=== PATIENT | female | born 1945 | race Caucasian/White ===

== ENCOUNTER 2019-07-22 12:34 | Inpatient (IN) | payer OTHER ==
--- NOTE | 2019-07-22 12:44 | PDOC ---
History of Present Illness - General Stated Complaint: Shortness of Breath - History of Present Illness Initial Comments: HPI: 73yo F with PMH of HTN, Alzheimer's dementia, colon CA, COPD coming from [facility] presenting with altered mental status. and health aide are at the bedside providing collateral history. They state that while the patient is nonverbal at baseline and does not follow commands, she has been more somnolent for the past two days. In addition, patient will usually express recognition of her , however she has not done so in the past two days. Upon arrival, patient noted to have significant eye deviation looking toward the left. Her does not know when this started and has never noticed it before. Patient without history of stroke or seizure. Has been eating at baseline. No known cough, diarrhea, or foul-smelling urine. Patient does not ambulate, but she will be placed in a wheelchair. History limited as patient is nonverbal. ROS: unable to complete (patient nonverbal) PE: General: Awake, in no acute distress Head: No signs of trauma Eyes: Significant leftward eye deviation ENT: Dry mucus membranes Neck: Supple Lungs: Lungs clear with upper airway noises Cardio: Regular rhythm, S1 and S2 present Abdomen: Soft, nontender. No grimacing noted upon palpation. Extremities: Distal pulses present SKIN: Warm, Dry, normal turgor Neurologic: Nonverbal. Not following commands. Moves all extremities. ED Course/MDM: DDX including but not limited to CVA/TIA, seizure, metastasis, metabolic derangement, anemia, UTI, PNA Last known normal was two days ago Triage VS noted for hypotension Stroke labs EKG CT Head 07/22/19 12:44 CT Head, as read by radiology: "EXAM#: TYPE/EXAM: RESULT: [id number] CT/HEAD CT WITHOUT CONTRAST Rule out stroke. Right inguinal herniation CT scan of the head without intravenous contrast Compared to prior MRI of the orbits dated 2008 there is generalized volume loss with moderate ventricular dilatation and moderate to marked periventricular chronic microvascular ischemic disease changes. No mass lesion, gross acute infarct or intracranial hemorrhage are identified. There is suggestion of focal encephalomalacia in the right temporal lobe, anteriorly. Both orbits appear grossly unremarkable. Visualized paranasal sinuses and mastoid air cells are well aerated except for mild mucosal thickening in the right posterior aspect of the sphenoid sinus. Mild deviation of the nasal septum to the right. The mastoid air cells are well aerated and the calvarium is intact IMPRESSION: Generalized volume loss with moderate to marked chronic microvascular ischemic disease changes. There is suggestion of focal encephalomalacia in the right temporal lobe, anteriorly. Otherwise, no gross CT evidence of acute intracranial pathology is identified. Correlate in 2 to determine further evaluation and follow-up. " EKG, rate 81, QTc 420, NSR, mild ST depressions seen in inferior distribution, flattened t waves in anterior distribution (no previous EKGs available) Discussed case with Dr. Ortiz, neurologist, who recommends admission. Recommends asa. Rectal ASA ordered. 07/22/19 13:52 CBC WBC 8.0 K/mm3 (4.0-10.0) 07/22/19 12:45 RBC 4.59 M/mm3 (3.60-5.2) 07/22/19 12:45 Hgb 14.5 GM/dL (10.7-15.3) 07/22/19 12:45 Hct 43.8 % (32.4-45.2) 07/22/19 12:45 MCV 95.6 fl (80-96) 07/22/19 12:45 MCH 31.6 pg (25.7-33.7) 07/22/19 12:45 MCHC 33.1 g/dl (32.0-36.0) 07/22/19 12:45 RDW 15.0 % (11.6-15.6) 07/22/19 12:45 Plt Count 213 K/MM3 (134-434) 07/22/19 12:45 MPV 10.4 fl (7.5-11.1) 07/22/19 12:45 Absolute Neuts (auto) 5.1 K/mm3 (1.5-8.0) 07/22/19 12:45 Neutrophils % 63.7 % (42.8-82.8) 07/22/19 12:45 Lymphocytes % 22.4 % (8-40) 07/22/19 12:45 Monocytes % 11.4 % (3.8-10.2) H 07/22/19 12:45 Eosinophils % 1.9 % (0-4.5) 07/22/19 12:45 Basophils % 0.6 % (0-2.0) 07/22/19 12:45 Nucleated RBC % 0 % (0-0) 07/22/19 12:45 No leukocytosis or anemia CMP Sodium 139 mmol/L (136-145) 07/22/19 12:45 Potassium 4.8 mmol/L (3.5-5.1) 07/22/19 12:45 Chloride 105 mmol/L (98-107) 07/22/19 12:45 Carbon Dioxide 30 mmol/L (21-32) 07/22/19 12:45 Anion Gap 4 MMOL/L (8-16) L 07/22/19 12:45 BUN 14.6 mg/dL (7-18) 07/22/19 12:45 Creatinine 0.5 mg/dL (0.55-1.3) L 07/22/19 12:45 Est GFR (CKD-EPI)AfAm 111.28 07/22/19 12:45 Est GFR (CKD-EPI)NonAf 96.02 07/22/19 12:45 Random Glucose 117 mg/dL (74-106) H 07/22/19 12:45 Calcium 9.2 mg/dL (8.5-10.1) 07/22/19 12:45 Total Bilirubin 0.4 mg/dL (0.2-1) 07/22/19 12:45 AST 40 U/L (15-37) H 07/22/19 12:45 ALT 32 U/L (13-61) 07/22/19 12:45 Alkaline Phosphatase 122 U/L (45-117) H 07/22/19 12:45 Creatine Kinase 127 U/L (26-192) 07/22/19 12:45 Troponin I < 0.02 ng/ml (0.00-0.05) 07/22/19 12:45 Total Protein 7.0 g/dl (6.4-8.2) 07/22/19 12:45 Albumin 2.9 g/dl (3.4-5.0) L 07/22/19 12:45 Triglycerides 201 mg/dL (0-150) H 07/22/19 12:45 Cholesterol 187 mg/dL (50-200) 07/22/19 12:45 Total LDL Cholesterol 107 mg/dL (5-100) H 07/22/19 12:45 HDL Cholesterol 55 mg/dL (40-60) 07/22/19 12:45 Electrolytes unremarkable Tpn undetectable Elevted TG and LDL UA negative for infection CXR as read by radiology: "EXAM#: TYPE/EXAM: RESULT: [id number] RAD/CHEST X-RAY PORTABLE* Chest: Altered mental status. Cough. A single AP view of the chest has been submitted. There is an elevated right hemidiaphragm, prominent mediastinum with large heart, prominent hilar markings with questionable left hilar calcifications and no sign of infiltrate or failure. The bones and soft tissues are intact. Correlation recommended. Reported By: Medardo Henderson MD [id number] " Page sent to Dr. Jack/Raul, , awaiting callback 07/22/19 15:[address] Carter who accepted patient for admission tPA Exclusion checklist 3-4.5h - Time Elapsed Date last known well: 07/20/19 Time last known well: 12:00 Elaspsed time: 2 Day(s) and 6 Hour(s) and 46 Minutes - Thrombolytic Therapy Candidate Is patient eligible for thrombolytic therapy: No - Ineligibility reason(s) Reasons No tPA given: Outside of window - delayed arrival NIH Stroke Scale - Last Known Well Date/Time & Onset Date Last Known Well: 07/20/19 (Difficult exam: at baseline, patient nonverbal/ does not follow commands) Time Last Known Well: 12:00 - Initial Evaluation Level of consciousness: Alert Ask patient the month and their age: Both incorrect Ask patient to open & close eyes; make fist and let go: Both incorrect Best gaze (horizontal eye movement): Forced deviation Visual field testing: No visual field loss Facial paresis (Show teeth/raise eyebrows/close eyes tight): Normal symmetrical movement Motor Function: Left Arm: Untestable (Joint fused orlimb amputated), explain: Motor Function: Right Arm: Untestable (Joint fused or limb amputated), explain: Motor Function: Left Leg: Untestable (Joint fused or limb amputated), explain: Motor Function: Right Leg: Untestable )Joint fused orlimb amputated), explain: Limb Ataxia: Untestable (Joint fused or limb amputated), explain: Sensory(Use pinprick test arms,legs,trunk,face/side to side): Normal Best language (Describe picture, name items, read sentences): Mute Dysarthria (read several words): Near unintelligible or unable to speak Extinction and Inattention: No abnormality - Total Score NIH Stroke Scale Score: 11 Past History - Past Medical History Allergies/Adverse Reactions: Allergies Allergy/AdvReac Type Severity Reaction Status Date / Time No Known Allergies Allergy Unverified 07/22/19 13:10 Home Medications: Ambulatory Orders Aspirin 81 mg PO BID 07/22/19 Atorvastatin Ca [Lipitor] 80 mg PO HS 07/22/19 Budesonide/Formeterol Fumarate [SYMBICORT 160/4.5mcg -] 2 inh PO BID 07/22/19 Donepezil HCl 10 mg PO HS 07/22/19 Furosemide 40 mg PO DAILY 07/22/19 Gemfibrozil [Lopid] 600 mg PO BID 07/22/19 Guaifenesin/Dextromethorphan [Robitussin Cough-Chest Dm Liq] 10 ml PO QID PRN Ipratropium/Albuterol Sulfate [Iprat-Albut 0.5-3(2.5) mg/3 ml] 3 ml IH QID 07/22 Memantine HCl [Namenda -] 5 mg PO BID 07/22/19 Metoprolol Tartrate 25 mg PO BID 07/22/19 Nystatin Cream [Mycostatin] 1 applic TP BID 07/22/19 Pantoprazole Sodium [Protonix -] 20 mg PO DAILY 07/22/19 ED Treatment Course - LABORATORY CBC & Chemistry Diagram: 07/22/19 12:45 07/22/19 12:45 Discharge - Discharge Information Problems reviewed: Yes Clinical Impression/Diagnosis: Altered mental status Qualifiers: Altered mental status type: unspecified Qualified Code(s): R41.82 - Altered mental status, unspecified Condition: Guarded - Admission Yes - Follow up/Referral - Patient Discharge Instructions - Post Discharge Activity
[2019-07-22] MEDS ORDERED: SODIUM CHLORIDE 1,000 ML IV SCH (13:00)
[2019-07-22 13:19] LABS: BASO % 0.6 % (0-2.0); EOS % 1.9 % (0-4.5); HEMATOCRIT 43.8 % (32.4-45.2); HEMOGLOBIN 14.5 GM/dL (10.7-15.3); LYMPH % 22.4 % (8-40); MCH 31.6 pg (25.7-33.7); MCHC 33.1 g/dl (32.0-36.0); MEAN CELL VOLUME 95.6 fl (80-96); MEAN PLT VOLUME 10.4 fl (7.5-11.1); MONO % 11.4 % (3.8-10.2); NEUT % 63.7 % (42.8-82.8); PLATELET COUNT 213 K/MM3 (134-434); RBC 4.59 M/mm3 (3.60-5.2)
[2019-07-22 13:41] LABS: INR 0.97 (0.83-1.09); PROTHROMBIN TIME (PATIENT) 11.4 SEC (9.7-13.0)
[2019-07-22 13:43] LABS: ACTIVATED PTT 31.7 SECONDS (25.2-36.5)
[2019-07-22] MEDS ORDERED: ASPIRIN 81 MG CHEWABLE TABLETS PO ONE (13:54)
[2019-07-22 13:56] LABS: ALBUMIN 2.9 g/dl (3.4-5.0); ALK PHOS 122 U/L (45-117); ANION GAP 4 MMOL/L (8-16); BILIRUBIN,TOTAL 0.4 mg/dL (0.2-1); BLOOD UREA NITROGEN 14.6 mg/dL (7-18); CALCIUM 9.2 mg/dL (8.5-10.1); CHLORIDE 105 mmol/L (98-107); CHOLESTEROL 187 mg/dL (50-200); CO2 30 mmol/L (21-32); CREATININE 0.5 mg/dL (0.55-1.3); GLUCOSE,RANDOM 117 mg/dL (74-106); HDL CHOLESTEROL 55 mg/dL (40-60); LDL CHOLESTEROL (ONLY SJRH) 107 mg/dL (5-100); POTASSIUM 4.8 mmol/L (3.5-5.1); SGOT/AST 40 U/L (15-37); SGPT/ALT 32 U/L (13-61); SODIUM 139 mmol/L (136-145); TRIGLYCERIDES 201 mg/dL (0-150)
[2019-07-22] MEDS ORDERED: ASPIRIN 300 MG SUPP.RECT PR ONE (14:00)
[2019-07-22 14:06] LABS: URINE APPEARANCE CLEAR; URINE BILIRUBIN NEGATIVE (NEGATIVE); URINE COLOR YELLOW; URINE GLUCOSE (UA) NEGATIVE (NEGATIVE); URINE KETONE NEGATIVE (NEGATIVE); URINE LEUK ESTERASE NEGATIVE (NEGATIVE); URINE NITRITE NEGATIVE (NEGATIVE); URINE PROTEIN NEGATIVE (NEGATIVE); URINE UROBILINOGEN 0.2 mg/dL (0.2-1.0)
[2019-07-22] MEDS ORDERED: ASPIRIN 300 MG SUPP.RECT RC ONE (14:22)
[2019-07-22 14:56] LABS: VENOUS PC02 52.4 mmHg (38-52); VENOUS PH 7.38 (7.31-7.41)
[2019-07-22 14:59] LABS: VENOUS PO2 < 49 mmHg (28-48)
--- NOTE | 2019-07-22 15:07 | PDOC ---
Documentation entered by Epi Morris SCRIBE, acting as scribe for Yanna Rushing MD. Yanna Rushing MD: This documentation has been prepared by the Arturo goins Nirvannie, SCRIBE, under my direction and personally reviewed by me in its entirety. I confirm that the documentation accurately reflects all work, treatment, procedures, and medical decision making performed by me. Attending Attestation - Resident Resident Name: Mica Slade - ED Attending Attestation I have performed the following: I have examined & evaluated the patient, The case was reviewed & discussed with the resident, I agree w/resident's findings & plan, Exceptions are as noted - HPI HPI: 07/22/19 14:06 The patient is a 73 year old female, with a significant past medical history of HTN, Alzheimer's dementia, COPD, who presents to the emergency department with AMS. Patient is nonverbal at baseline and can not contribute to history. Per NH , pt typically able to recognize her but has not done so for 2 days. Patient has a gaze to the left side which states is new since yesterday morning. Allergies: NKDA Primary Care Physician: Dr. Drew Jakc - Physicial Exam PE: 07/22/19 15:02 Agree with resident exam - Medical Decision Making 07/22/19 15:02 73-year-old female presents the emergency department with new onset left gaze deviation as well as altered mental status. Concern for CVA. Patient is out of the TPA window. Stroke work-up has been initiated. Vitals remarkable for blood pressure on presentation in the 80s systolic, however on repeat without intervention blood pressure is 154/90. Rectally, her temperature is 99.7. Will obtain infectious w/u as well. In light of stable vitals, no fever, no clear source at this time, will not cover empirically at this time. Case has been discussed with neurology who will evaluate patient. Anticipate admission. Heart Score/ECG Review #1 07/22/19 15:08 Twelve-lead EKG was performed and reviewed by me. Normal sinus rhythm, rate 81. Normal axis. No ST elevations but sub-[address] depressions in 1, 2, aVF, V5 and V6. No ST elevations. No previous EKG to compare.
--- NOTE | 2019-07-22 21:01 | CON.NEURO ---
Consult Consult Specialty:: NEUROLOGY-RAUL SOLORZANO - History of Present Illness History of Present Illness: 73yo F with PMH of HTN, Alzheimer's dementia, colon CA, COPD coming from [facility] presenting with altered mental status. and health aide are at the bedside providing collateral history. They state that while the patient is nonverbal at baseline and does not follow commands, she has been more somnolent for the past two days. In addition, patient will usually express recognition of her , however she has not done so in the past two days. Upon arrival, patient noted to have significant eye deviation looking toward the left. Her does not know when this started and has never noticed it before. Patient without history of stroke or seizure. Has been eating at baseline. No known cough, diarrhea, or foul-smelling urine. Patient does not ambulate, but she will be placed in a wheelchair. History limited as patient is nonverbal. - Alcohol/Substance Use Hx Alcohol Use: No - Smoking History Smoking history: Unknown if ever smoked Home Medications - Allergies Allergies/Adverse Reactions: Allergies Allergy/AdvReac Type Severity Reaction Status Date / Time No Known Allergies Allergy Unverified 07/22/19 13:10 - Home Medications Home Medications: Ambulatory Orders Aspirin 81 mg PO BID 07/22/19 Atorvastatin Ca [Lipitor] 80 mg PO HS 07/22/19 Budesonide/Formeterol Fumarate [SYMBICORT 160/4.5mcg -] 2 inh PO BID 07/22/19 Donepezil HCl 10 mg PO HS 07/22/19 Furosemide 40 mg PO DAILY 07/22/19 Gemfibrozil [Lopid] 600 mg PO BID 07/22/19 Guaifenesin/Dextromethorphan [Robitussin Cough-Chest Dm Liq] 10 ml PO QID PRN Ipratropium/Albuterol Sulfate [Iprat-Albut 0.5-3(2.5) mg/3 ml] 3 ml IH QID 07/22 Memantine HCl [Namenda -] 5 mg PO BID 07/22/19 Metoprolol Tartrate 25 mg PO BID 07/22/19 Nystatin Cream [Mycostatin] 1 applic TP BID 07/22/19 Pantoprazole Sodium [Protonix -] 20 mg PO DAILY 11/21/19 Physical Exam-Neuro Vital Signs: Vital Signs Temperature 99.1 F 07/22/19 18:21 Pulse Rate 80 07/22/19 18:21 Respiratory Rate 18 07/22/19 18:21 Blood Pressure 148/93 07/22/19 18:21 O2 Sat by Pulse Oximetry (%) 96 07/22/19 18:21 Labs: CBC, BMP 07/22/19 12:45 07/22/19 12:45 INR, PTT INR 0.97 (0.83-1.09) 07/22/19 13:21 - Neuro Exam Level Of Consciousness: Yes: Stuporous (Lying with eyes closed, non-verbal, to pain opens eyes but does not allow eye exam , only verbalization to pain is"no": .) Eyes: Yes: Other (Now able to move gaze in both directions) Mini Mental Exam: As above Cranial Nerves II-XII Intact: No (slight diminished right nlf) Gag: Present DTR's: 1+ Right Tricep, 1+ Left Brachioradialis, 2+ Left Bicep, 2+ Right Bicep, 2+ Left Tricep, 2+ Right Brachioradialis, 2+ Left Achilles, 2+ Right Achilles ( bilat knees-2+) Babinski: Present (right) Motor Strength: 3/5: Left Arm, Right Arm, Left Leg, Right Leg (Has increased tone in all 4 ext-difficult to test) Gait: Deferred Imaging - Results Cat Scan: Report Reviewed (Right temporal encephalomalacia) Assessment/Plan 73yo F with PMH of HTN, Alzheimer's dementia, colon CA, COPD coming from [facility] presenting with altered mental status, noted to have left gaze deviation upoon arrival in ED, has right temp. encephalomalacia. DDX. includes left frontal infarct, seizures causing left gaze devition and mental status change. Suggest: MRI brain, EEG, Keppra 750mg bid(can load with 1000mg now).EEG. Thank you, Demetri Ortiz MD
[2019-07-22] MEDS: METOPROLOL TARTRATE 25 MG TABLET (FP) PO SCH (21:59)
[2019-07-22] MEDS: DONEPEZIL HCL 10 MG TABLET (FP) PO SCH (21:59)
[2019-07-22] MEDS: ATORVASTATIN CA 80 MG TABLET (FP) PO SCH (21:59)
[2019-07-22] MEDS: MEMANTINE HCL 5 MG TABLET (UD) PO SCH (21:59)
[2019-07-22] MEDS: BUDESONIDE/FORMETEROL FUMARATE 160/4.5 mcg INHALER IH SCH (22:00)
[2019-07-23] MEDS: GEMFIBROZIL 600 MG TABLET (FP) PO SCH ×2 (07:12→16:46)
[2019-07-23 07:45] LABS: BASO % 0.6 % (0-2.0); EOS % 1.5 % (0-4.5); HEMATOCRIT 40.9 % (32.4-45.2); HEMOGLOBIN 13.7 GM/dL (10.7-15.3); LYMPH % 23.6 % (8-40); MCH 31.7 pg (25.7-33.7); MCHC 33.4 g/dl (32.0-36.0); MEAN CELL VOLUME 94.8 fl (80-96); MEAN PLT VOLUME 9.7 fl (7.5-11.1); MONO % 13.4 % (3.8-10.2); NEUT % 60.9 % (42.8-82.8); PLATELET COUNT 186 K/MM3 (134-434); RBC 4.31 M/mm3 (3.60-5.2); RDW 15.1 % (11.6-15.6)
[2019-07-23 08:11] LABS: ALBUMIN 2.9 g/dl (3.4-5.0); BILIRUBIN,TOTAL 0.3 mg/dL (0.2-1); BLOOD UREA NITROGEN 14.3 mg/dL (7-18); CALCIUM 9.3 mg/dL (8.5-10.1); CREATININE 0.4 mg/dL (0.55-1.3); POTASSIUM 3.8 mmol/L (3.5-5.1); TOT PROT 6.5 g/dl (6.4-8.2)
[2019-07-23] MEDS ORDERED: FUROSEMIDE 40 MG TABLET (FP) PO SCH (10:00)
[2019-07-23] MEDS: BUDESONIDE/FORMETEROL FUMARATE 160/4.5 mcg INHALER IH SCH ×2 (10:04→22:47)
[2019-07-23] MEDS: ASPIRIN 81 MG CHEWABLE TABLETS PO SCH (10:04)
[2019-07-23] MEDS: MEMANTINE HCL 5 MG TABLET (UD) PO SCH ×2 (10:04→22:38)
[2019-07-23] MEDS: METOPROLOL TARTRATE 25 MG TABLET (FP) PO SCH (10:04)
--- NOTE | 2019-07-23 12:08 | HP ---
Admitting History and Physical - Primary Care Physician PCP: Louise Jack - Admission History of Present Illness: Pt seen/ examined chart reviewed Er records reviewed and as per Er records The patient is a 73 year old female, with a significant past medical history of HTN, Alzheimer's dementia, COPD,Colon Ca who presents to the emergency department with AMS. Patient is nonverbal at baseline and can not contribute to history. Per NH, pt typically able to recognize her but has not done so for 2 days. Patient has a gaze to the left side which states is new since yesterday morning. I also spoke to / Aid today Pt awake. Poor historian advance dementia Known to me from snf 'NO gaze now CT head -ve pt also has cough / expectorant per ct chest- Infiltrate ? History Source: Family Member, Medical Record Limitations to Obtaining History: Clinical Condition, Dementia - Smoking History Smoking history: Unknown if ever smoked - Alcohol/Substance Use Hx Alcohol Use: No Home Medications - Allergies Allergies/Adverse Reactions: Allergies Allergy/AdvReac Type Severity Reaction Status Date / Time No Known Allergies Allergy Unverified 07/22/19 13:10 - Home Medications Home Medications: Ambulatory Orders Aspirin 81 mg PO BID 07/22/19 Atorvastatin Ca [Lipitor] 80 mg PO HS 07/22/19 Budesonide/Formeterol Fumarate [SYMBICORT 160/4.5mcg -] 2 inh PO BID 07/22/19 Donepezil HCl 10 mg PO HS 07/22/19 Furosemide 40 mg PO DAILY 07/22/19 Gemfibrozil [Lopid] 600 mg PO BID 07/22/19 Guaifenesin/Dextromethorphan [Robitussin Cough-Chest Dm Liq] 10 ml PO QID PRN Ipratropium/Albuterol Sulfate [Iprat-Albut 0.5-3(2.5) mg/3 ml] 3 ml IH QID 07/22 Memantine HCl [Namenda -] 5 mg PO BID 07/22/19 Metoprolol Tartrate 25 mg PO BID 07/22/19 Nystatin Cream [Mycostatin] 1 applic TP BID 07/22/19 Pantoprazole Sodium [Protonix -] 20 mg PO DAILY 07/22/19 Review of Systems Unable to obtain ROS, reason: clinical condition Physical Examination Vital Signs: Vital Signs Temperature 98.0 F 07/23/19 10:25 Pulse Rate 89 07/23/19 10:25 Respiratory Rate 19 07/23/19 10:25 Blood Pressure 143/74 07/23/19 10:25 O2 Sat by Pulse Oximetry (%) 99 07/23/19 10:25 Constitutional: Yes: No Distress Eyes: Yes: Conjunctiva Clear, PERRL Neck: Yes: Supple Cardiovascular: Yes: Regular Rate and Rhythm Respiratory: Yes: Diminished Gastrointestinal: Yes: Soft Edema: No Neurological: Yes: Lethargy Labs: CBC, BMP 07/23/19 05:30 07/23/19 05:30 Imaging - Results Chest X-ray: Report Reviewed Cat Scan: Report Reviewed EKG: Report Reviewed Problem List - Problems (1) Altered mental status Code(s): R41.82 - ALTERED MENTAL STATUS, UNSPECIFIED Qualifiers: Altered mental status type: unspecified Qualified Code(s): R41.82 - Altered mental status, unspecified (2) Aspiration pneumonia Code(s): J69.0 - PNEUMONITIS DUE TO INHALATION OF FOOD AND VOMIT Assessment/Plan cva ? Seizure? Advance dementia Aspiration Pneumonia ? Fluids Hold po HTN meds NPO except meds MRI Brain [facility] [place] d/c Dr. Duenas also- will see pt EEG Swallow Eval- Spoke with Nelly Perez will follow d/w pts as well as nursing staff also
[2019-07-23] MEDS ORDERED: PIPERACILLIN/TAZOB 3.375 GM 3.375 GM in DEXTROSE 5%-WATER - 50 ML IVPB ONE (12:19)
--- NOTE | 2019-07-23 12:30 | CONSULT ---
Admitting History and Physical - Primary Care Physician PCP: Louise Jack - Admission History of Present Illness: Per EMR- 73yo F with PMH of HTN, Alzheimer's dementia, colon CA, COPD coming from [facility] presenting with altered mental status. and health aide are at the bedside providing collateral history. They state that while the patient is nonverbal at baseline and does not follow commands, she has been more somnolent for the past two days. In addition, patient will usually express recognition of her , however she has not done so in the past two days. Upon arrival, patient noted to have significant eye deviation looking toward the left. Her does not know when this started and has never noticed it before. Patient without history of stroke or seizure. Has been eating at baseline. No known cough, diarrhea, or foul-smelling urine. Patient does not ambulate, but she will be placed in a wheelchair. History limited as patient is nonverbal. Selected Entries 07/22/19 07/22/19 07/22/19 12:34 13:30 18:21 Temperature 99.7 F H 99.1 F Blood Pressure 88/71 L Blood Pressure 154/90 148/93 [Right Arm] 07/23/19 07/23/19 07/23/19 05:44 07:30 08:58 Temperature Blood Pressure Blood Pressure 141/88 140/73 146/71 [Right Arm] 07/23/19 10:25 Temperature Blood Pressure Blood Pressure 143/74 [Right Arm] Laboratory Tests 07/22/19 07/23/19 12:45 05:30 WBC 8.0 6.0 Pt with cough x 3 days. Normally speaks occasionally, tangential, impaired functional communication. She eats reg food/thin liquid with good appetite per private REPORTER ANCHOR from [facility]. REPORTER ANCHOR reported increased lethargy, eyes deviated to left , was now non verbal. History Source: Medical Record, Caregiver Limitations to Obtaining History: Clinical Condition, Dementia - Smoking History Smoking history: Unknown if ever smoked - Alcohol/Substance Use Hx Alcohol Use: No History - Admission Reason For Visit: CVA - Diagnostics X-ray: Report Reviewed CT Scan: Report Reviewed - General Mental Status: Lethargic (responsive intermittently to spoken word and tactile stimulation.Eyes remained closed. Mumbled something to me that was first time since onset, per REPORTER ANCHOR.) Ability to Follow Directions: Poor Head/Neck Control: Needs Assist - Hearing Hearing: Functional Speech Evaluation - Communication Primary Language: NEPALI Communication: Yes: Non-Communicable (baseline tangential words,phrases.Mumble something to me that was first time since onset, per REPORTER ANCHOR.) - Speech Production Able to Make Needs Known: Yes: Severely Impaired Intelligibility: Yes: Severely Impaired - Speech Characteristics Voice Loudness: Moderately Soft/Quiet Voice Pitch: Yes: Normal Voice Phonatory-based Quality: Yes: Normal Speech Pattern: Impaired Speech Clarity: < 25% Nasal Resonance: Normal - Language/Auditory Comprehension Observation: Able to respond to yes/no queries: No, Comprehends Conversational Speech: No - Language/Verbal Expression Functional Communication Status: Yes: Severely Impaired - Memory/Perception [facility]PC Memory: Yes: Severely Impaired Short Term Memory: Yes: Severely Impaired - Swallow Evaluation/Bedside Assessment Current Nutritional Intake: NPO Oral Secretions: Yes: WFL Facial Symmetry at Rest: Symmetrical Laryngeal Movement: Able to Palpate Rate of Intake: WFL Labial Seal: WFL Oral Prep Time: Increased Timing of Swallow: WFL Coughing/Throat Clear: No (thin liquid. harsh cough) Recommendations - Speech Evaluation, Impression/Plan Impression: responsive intermittently to spoken word and tactile stimulation.Eyes remained closed. Mumble something to me that was first time since onset, per REPORTER ANCHOR. Brisk swallow. Harsh delayed but responsive cough with thin liquid via straw. - Disposition Discharge to: [facility] Facility - Dysphagia Impressions/Plan Swallowing Skills: Impaired Dysphagia Impressions: Mild Impairment, Suspect Aspiration *Silent aspiration: cannot be R/O at bedside Dysphagia Treatment Plan: Small Bites, Chin Tuck/Down, Clear Pocket Food, Trial Feedings, Facilitative Feeding, Safe Rate, 1/2 tsp. at a time, Elevate HOB during feed Recommendations: Modified Barium Swallow (if cough,congestion,fever persists) - Recommendations Diet Consistency: Dysphagia Pureed Medication Administration: Crushed with applesauce Liquids: [place] Thick (single sips. no straws) Supplement: Magic Cup, Ensure Pudding
--- NOTE | 2019-07-23 12:31 | PN ---
Progress Note (short form) - Note Progress Note: ID consult dictated imp/reccd lethargy dementia Aide and hospital report that she has had a bad cough for last 2 days reports hypoxia to Dr Jack currently NPO altared mental status r/o CVA r/o stroke ?aspiration no fevers chest ct with ?small infiltrate right base rocephin/flagyl d/w dr jack Problem List - Problems (1) Altered mental status Code(s): R41.82 - ALTERED MENTAL STATUS, UNSPECIFIED Qualifiers: Altered mental status type: unspecified Qualified Code(s): R41.82 - Altered mental status, unspecified (2) Aspiration pneumonia Code(s): J69.0 - PNEUMONITIS DUE TO INHALATION OF FOOD AND VOMIT
--- NOTE | 2019-07-23 13:21 | EKG ---
Test Reason : Blood Pressure : / mmHG Vent. Rate : 081 BPM Atrial Rate : 081 BPM P-R Int : 124 ms QRS Dur : 072 ms QT Int : 362 ms P-R-T Axes : 055 046 092 degrees QTc Int : 420 ms NORMAL SINUS RHYTHM NONSPECIFIC ST AND T WAVE ABNORMALITY ABNORMAL ECG Confirmed by ANGELICA ALVES MD ([id number]) on 07/23/2019 1:21:22 PM Referred By: Confirmed By:ANGELICA ALVES MD
[2019-07-23] MEDS: SODIUM CHLORIDE 1,000 ML IV SCH (13:34)
[2019-07-23] MEDS: levETIRAcetam 500 MG/5 ML INJECTION VIAL IVPB SCH ×2 (13:35→22:45)
--- NOTE | 2019-07-23 16:54 | CONS ---
DATE OF CONSULTATION: INFECTIOUS DISEASE CONSULTATION DATE OF DICTATION: 07/23/2019 HISTORY OF PRESENT ILLNESS: This is a 73-year-old female who was admitted from the jail. She has a history of dementia, and she has been residing at the jail for at least a year. Her aid is present, who is also her aid there. She reports that over the last 2-3 days, she has developed a moist cough that has worsened. She really has not been eating anything at the jail, and she has become more lethargic. At her baseline, spontaneously she sometimes will babble but otherwise will not speak, and she can apparently typically recognize her , which she cannot do. She has had no fevers. She presented to the ER. She was thought to possibly have the CVA or seizures. She was seen by neurology and admitted. I am asked to see her for possible pneumonia. As well I spoke with Dr. Jack who reports that she had periods of hypoxia as well as the jail along with cough. PAST MEDICAL HISTORY: Hypertension, Alzheimer dementia, colon cancer, and COPD. SURGICAL HISTORY: Unknown. She resides at the [facility]. ALLERGIES: She has no known drug allergies. MEDICATION: Her medications at the jail include aspirin, atorvastatin, Symbicort, donepezil, furosemide, Lopid, nebulizer treatment, albuterol, ipratropium, Namenda, metoprolol, and Protonix. SOCIAL HISTORY: She has been residing at the jail and has an aid there. REVIEW OF SYSTEMS: Noted for lethargy for the last 2 days and moist cough. PHYSICAL EXAMINATION: Vital Signs: Temperature 98, pulse 84, blood pressure 158/79, respiratory rate 20, stated weight is 69 kg. HEENT: Normocephalic. Eyes are anicteric. Neck: Supple. General: She is lethargic and not following any commands. Abdomen: Soft, nontender. Heart: Regular rate and rhythm. Lungs: Clear. Extremities: Without edema. Skin: She has no rash. LABORATORY: White count is 6000, hemoglobin 13.7, INR 0.9, BUN and creatinine are 14 and 0.4 with normal LFTs. Albumin is 2.9. Urinalysis is negative. Her urine culture is negative. She had a chest CT that shows a possible slight increased opacity in the right base consistent with either atelectasis or infiltrate. Head CT noted IMPRESSION: In summary, this is an elderly woman admitted with altered mental status, possible stroke, possible seizure, CAT scan and clinical history of cough and lethargy, concerning for aspiration pneumonia. Chest CT with a small right infiltrate at the right base versus atelectasis. Would treat with ceftriaxone and Flagyl, neurological followup is ongoing. Case was discussed with Dr. Jack. TAYLOR DUNCAN M.D. SIMI/[id number] MTDD
[2019-07-23] MEDS ORDERED: cefTRIAXone SODIUM 1 GM VIAL ONE (17:07)
[2019-07-23] MEDS ORDERED: DEXTROSE 5%-WATER - 50 ML IVPB ONE (17:07)
[2019-07-23] MEDS: CEFTRIAXONE 1 GM in DEXTROSE 5%-WATER - 50 ML IVPB SCH (17:27)
[2019-07-23] MEDS: ATORVASTATIN CA 80 MG TABLET (FP) PO SCH (22:37)
[2019-07-23] MEDS: DONEPEZIL HCL 10 MG TABLET (FP) PO SCH (22:38)
[2019-07-23] MEDS: HEPARIN NA (PORCINE) 5,000 UNITS/ML 1ML VIAL SQ SCH (22:43)
[2019-07-24] MEDS ORDERED: ACETAMINOPHEN 650 MG SUPP.RECT PR ONE (01:46)
[2019-07-24] MEDS: GEMFIBROZIL 600 MG TABLET (FP) PO SCH ×2 (06:53→16:37)
[2019-07-24 07:23] LABS: BASO % 0.5 % (0-2.0); EOS % 1.8 % (0-4.5); HEMATOCRIT 36.3 % (32.4-45.2); HEMOGLOBIN 12.3 GM/dL (10.7-15.3); LYMPH % 29.9 % (8-40); MCHC 33.9 g/dl (32.0-36.0); MEAN CELL VOLUME 94.4 fl (80-96); MEAN PLT VOLUME 9.6 fl (7.5-11.1); MONO % 14.6 % (3.8-10.2); NEUT % 53.2 % (42.8-82.8); PLATELET COUNT 176 K/MM3 (134-434); RBC 3.84 M/mm3 (3.60-5.2); RDW 14.2 % (11.6-15.6); WHITE BLOOD COUNT 5.4 K/mm3 (4.0-10.0)
[2019-07-24 08:01] LABS: ALBUMIN 2.7 g/dl (3.4-5.0); BILIRUBIN,TOTAL 0.3 mg/dL (0.2-1); BLOOD UREA NITROGEN 10.9 mg/dL (7-18); CALCIUM 8.9 mg/dL (8.5-10.1); CREATININE 0.4 mg/dL (0.55-1.3); POTASSIUM 3.4 mmol/L (3.5-5.1); TOT PROT 5.8 g/dl (6.4-8.2)
[2019-07-24] MEDS ORDERED: DEXTROSE 5%-WATER - 50 ML IVPB ONE (08:10)
[2019-07-24] MEDS ORDERED: cefTRIAXone SODIUM 1 GM VIAL ONE (08:10)
[2019-07-24] MEDS: levETIRAcetam 500 MG/5 ML INJECTION VIAL IVPB SCH ×2 (09:21→22:06)
[2019-07-24] MEDS: CEFTRIAXONE 1 GM in DEXTROSE 5%-WATER - 50 ML IVPB SCH (09:21)
[2019-07-24] MEDS: MEMANTINE HCL 5 MG TABLET (UD) PO SCH ×2 (10:08→22:06)
[2019-07-24] MEDS: ASPIRIN 81 MG CHEWABLE TABLETS PO SCH (10:08)
[2019-07-24] MEDS: HEPARIN NA (PORCINE) 5,000 UNITS/ML 1ML VIAL SQ SCH ×2 (10:09→22:07)
[2019-07-24] MEDS: BUDESONIDE/FORMETEROL FUMARATE 160/4.5 mcg INHALER IH SCH (12:52)
[2019-07-24] MEDS: SODIUM CHLORIDE 1,000 ML IV SCH (12:53)
[2019-07-24] MEDS ORDERED: POTASSIUM CHLORIDE ORAL LIQUID 20 MEQ/15 ML PO ONE (16:12)
--- NOTE | 2019-07-24 16:17 | PN ---
Progress Note (short form) - Note Progress Note: nonverbal had desaturated and is on NRB Vital Signs - 24 hr 07/23/19 07/23/19 07/23/19 18:00 20:00 21:00 Temperature 97.7 F 98.8 F Pulse Rate 86 89 Respiratory 20 20 20 Rate Blood Pressure 137/76 132/66 O2 Sat by Pulse 96 Oximetry (%) 07/24/19 07/24/19 07/24/19 02:00 06:00 08:27 Temperature 100 F H 99.1 F 98.9 F Pulse Rate 106 H 75 82 Respiratory 20 20 20 Rate Blood Pressure 147/91 125/64 134/78 O2 Sat by Pulse Oximetry (%) 07/24/19 07/24/19 07/24/19 08:33 08:46 08:48 Temperature Pulse Rate 82 83 Respiratory 20 Rate Blood Pressure O2 Sat by Pulse 96 95 88 L Oximetry (%) Current Medications Generic Name Dose Route Start Last Admin Trade Name Freq PRN Reason Stop Dose Admin Aspirin 81 mg 07/23/19 10:00 07/24/19 10:08 Asa - PO 81 mg DAILY WILFRED Administration Atorvastatin Calcium 80 mg 07/22/19 22:00 07/23/19 22:37 Lipitor - PO 80 mg HS WILFRED Administration Budesonide/Formoterol Fumarate 2 puff 07/22/19 22:00 07/24/19 12:52 Symbicort 160/4.5mcg - IH Not Given BID WILFRED Donepezil HCl 10 mg 07/22/19 22:00 07/23/19 22:38 Aricept - PO 10 mg HS WILFRED Administration Gemfibrozil 600 mg 07/23/19 07:00 07/24/19 06:53 Lopid - PO 600 mg BIDAC WILFRED Administration Heparin Sodium (Porcine) 5,000 unit 07/23/19 22:00 07/24/19 10:09 Heparin - SQ 5,000 unit BID WILFRED Administration Sodium Chloride 1,000 mls @ 100 mls/hr 07/23/19 12:00 07/24/19 12:53 Normal Saline - IV 100 mls/hr ASDIR WILFRED Administration Ceftriaxone Sodium 1 gm/ 50 mls @ 100 mls/hr 07/23/19 13:15 07/24/19 09:21 Dextrose IVPB 100 mls/hr DAILY WILFRED Administration Protocol Metronidazole 500 mg in 100 mls @ 100 mls/hr 07/23/19 13:15 07/24/19 09:21 Flagyl 500mg Premixed Ivpb - IVPB 100 mls/hr Q8H-IV WILFRED Administration Levetiracetam 750 mg 07/23/19 13:00 07/24/19 09:21 Keppra Injection - IVPB 750 mg BID WILFRED Administration Memantine 5 mg 07/22/19 22:00 07/24/19 10:08 Namenda - PO 5 mg BID WILFRED Administration Laboratory Results - last 24 hr 07/24/19 07/24/19 07/24/19 06:33 06:33 06:33 WBC 5.4 RBC 3.84 Hgb 12.3 Hct 36.3 MCV 94.4 MCH 32.0 MCHC 33.9 RDW 14.2 Plt Count 176 MPV 9.6 Absolute Neuts (auto) 2.9 Neutrophils % 53.2 Lymphocytes % 29.9 D Monocytes % 14.6 H Eosinophils % 1.8 Basophils % 0.5 Nucleated RBC % 0 Sodium 145 Potassium 3.4 L Chloride 112 H Carbon Dioxide 27 Anion Gap 6 L BUN 10.9 Creatinine 0.4 L Est GFR (CKD-EPI)AfAm 119.76 Est GFR (CKD-EPI)NonAf 103.33 Random Glucose 138 H Hemoglobin A1c % 6.8 H Calcium 8.9 Total Bilirubin 0.3 AST 20 ALT 21 Alkaline Phosphatase 84 Total Protein 5.8 L Albumin 2.7 L Triglycerides 202 H Cholesterol 180 Total LDL Cholesterol 99 HDL Cholesterol 45 TSH 3.22 S1 S2 RRR Lungs decreased Abd-soft, NT edema+ PLAN IV antibiotics for aspiration pneumonia ID and Neurology eval noted MRI brain pending EEG replace potassium Problem List - Problems (1) Toxic metabolic encephalopathy Code(s): G92 - TOXIC ENCEPHALOPATHY (2) Altered mental status Code(s): R41.82 - ALTERED MENTAL STATUS, UNSPECIFIED Qualifiers: Altered mental status type: unspecified Qualified Code(s): R41.82 - Altered mental status, unspecified (3) Aspiration pneumonia Code(s): J69.0 - PNEUMONITIS DUE TO INHALATION OF FOOD AND VOMIT
[2019-07-24] MEDS ORDERED: PT OWN MED DRAWER 7, Y5N ONE (16:29)
[2019-07-24] MEDS ORDERED: SODIUM CHLORIDE 1,000 ML IV SCH (20:49)
[2019-07-24] MEDS: DONEPEZIL HCL 10 MG TABLET (FP) PO SCH (22:06)
[2019-07-24] MEDS: ATORVASTATIN CA 80 MG TABLET (FP) PO SCH (22:06)
[2019-07-25] MEDS: BUDESONIDE/FORMETEROL FUMARATE 160/4.5 mcg INHALER IH SCH ×3 (02:22→21:10)
--- NOTE | 2019-07-25 05:24 | HOSP ---
Subjective - Review of Symptoms Events since last encounter: Hospitalist Encounter Notified via microblog from the RN that the patient has desaturated to 82% on NRB. Was asked to assess. Arrived to bedside, patient is unresponsive, obtunded not responding to verbal or tactile stimulus Removed NRB, initiated BVM- spo2 89% ICU resident, Dr. Crocker PGY3 notified for consult. Notified Dr. Diaz for assistance Plan: Stat ABG Stat Chest Xray Stat EKG Labs- CBC, CMP, Mg, Phos, Trop, Lactic Acid Bipap IVF d/cd Pulmonary: Yes: Other (Respiratory Distress) Physical Examination Vital Signs: Vital Signs Temperature 98 F 07/24/19 22:00 Pulse Rate 95 H 07/24/19 22:00 Respiratory Rate 20 07/24/19 22:00 Blood Pressure 141/100 07/24/19 22:00 O2 Sat by Pulse Oximetry (%) 94 L 07/24/19 22:00 Constitutional: Yes: Severe Distress, Obese, Other (Obtunded) Eyes: Yes: PERRL HENT: Yes: Atraumatic, Normocephalic Neck: Yes: Supple, Trachea Midline Respiratory: Yes: Diminished, Poor Air Entry, Rhonchi, Other (NRB) Gastrointestinal: Yes: Normal Bowel Sounds, Soft, Abdomen, Obese Renal/: Yes: Incontinence Edema: Yes Edema: LLE: 1+, RLE: 1+ Peripheral Pulses WNL: Yes Neurological: Yes: Unresponsive Labs: CBC, BMP 07/24/19 06:33 07/24/19 06:33 Laboratory Results - last 24 hr 07/24/19 07/24/19 07/24/19 06:33 06:33 06:33 WBC 5.4 RBC 3.84 Hgb 12.3 Hct 36.3 MCV 94.4 MCH 32.0 MCHC 33.9 RDW 14.2 Plt Count 176 MPV 9.6 Absolute Neuts (auto) 2.9 Neutrophils % 53.2 Lymphocytes % 29.9 D Monocytes % 14.6 H Eosinophils % 1.8 Basophils % 0.5 Nucleated RBC % 0 Anticoagulation Therapy Puncture Site ABG pH ABG pCO2 at Pt Temp ABG pO2 at Pt Temp ABG HCO3 ABG O2 Sat (Measured) ABG O2 Content ABG Base Excess Blayne Test O2 Delivery Device Oxygen Flow Rate Vent Mode Vent Rate Mechanical Rate Pressure Support Vent Sodium 145 Potassium 3.4 L Chloride 112 H Carbon Dioxide 27 Anion Gap 6 L BUN 10.9 Creatinine 0.4 L Est GFR (CKD-EPI)AfAm 119.76 Est GFR (CKD-EPI)NonAf 103.33 Random Glucose 138 H Hemoglobin A1c % 6.8 H Calcium 8.9 Total Bilirubin 0.3 AST 20 ALT 21 Alkaline Phosphatase 84 Total Protein 5.8 L Albumin 2.7 L Triglycerides 202 H Cholesterol 180 Total LDL Cholesterol 99 HDL Cholesterol 45 TSH 3.22 07/25/19 07/25/19 05:30 05:48 WBC 6.0 RBC 4.14 Hgb 13.3 Hct 39.3 MCV 95.0 MCH 32.1 MCHC 33.8 RDW 14.6 Plt Count 208 MPV 9.3 Absolute Neuts (auto) 3.4 Neutrophils % 56.5 Lymphocytes % 29.5 Monocytes % 10.7 H Eosinophils % 2.7 Basophils % 0.6 Nucleated RBC % 0 Anticoagulation Therapy No Result Required. Puncture Site No Result Required. ABG pH 7.43 ABG pCO2 at Pt Temp 35.5 ABG pO2 at Pt Temp 52.2 L ABG HCO3 23.1 ABG O2 Sat (Measured) 86.1 L ABG O2 Content 15.1 ABG Base Excess -0.3 Blayne Test No Result Required. O2 Delivery Device No Result Required. Oxygen Flow Rate Yes Vent Mode No Result Required. Vent Rate No Result Required. Mechanical Rate No Result Required. Pressure Support Vent No Result Required. Sodium Potassium Chloride Carbon Dioxide Anion Gap BUN Creatinine Est GFR (CKD-EPI)AfAm Est GFR (CKD-EPI)NonAf Random Glucose Hemoglobin A1c % Calcium Total Bilirubin AST ALT Alkaline Phosphatase Total Protein Albumin Triglycerides Cholesterol Total LDL Cholesterol HDL Cholesterol TSH Current Medications Generic Name Dose Route Start Last Admin Trade Name Freq PRN Reason Stop Dose Admin Aspirin 81 mg 07/23/19 10:00 07/24/19 10:08 Asa - PO 81 mg DAILY WILFRED Administration Atorvastatin Calcium 80 mg 07/22/19 22:00 07/24/19 22:06 Lipitor - PO 80 mg HS WILFRED Administration Budesonide/Formoterol Fumarate 2 puff 07/22/19 22:00 07/25/19 02:22 Symbicort 160/4.5mcg - IH Not Given BID WILFRED Chlorhexidine Gluconate 1 applic 07/25/19 22:00 Hibiclens For Decolonization - TP HS WILFRED Donepezil HCl 10 mg 07/22/19 22:00 07/24/19 22:06 Aricept - PO 10 mg HS WILFRED Administration Gemfibrozil 600 mg 07/23/19 07:00 07/25/19 06:14 Lopid - PO Not Given BIDAC WILFRED Heparin Sodium (Porcine) 5,000 unit 07/23/19 22:00 07/24/19 22:07 Heparin - SQ 5,000 unit BID WILFRED Administration Ceftriaxone Sodium 1 gm/ 50 mls @ 100 mls/hr 07/23/19 13:15 07/24/19 09:21 Dextrose IVPB 100 mls/hr DAILY WILFRED Administration Protocol Metronidazole 500 mg in 100 mls @ 100 mls/hr 07/23/19 13:15 07/25/19 02:23 Flagyl 500mg Premixed Ivpb - IVPB 100 mls/hr Q8H-IV WILFRED Administration Levetiracetam 750 mg 07/23/19 13:00 07/24/19 22:06 Keppra Injection - IVPB 750 mg BID WILFRED Administration Memantine 5 mg 07/22/19 22:00 07/24/19 22:06 Namenda - PO 5 mg BID WILFRED Administration Mupirocin 1 applic 07/25/19 10:00 Bactroban Ointment (For Decolonization) - NS 07/30/19 09:59 BID [facility] Hospitalist Encounter Assessment: This is a 73 y/o woman from [facility] with a PMHx of: HTN, Alzheimer's, Dementia, COPD, Colon Ca. Admitted Metabolic Encephalopathy, HAP. Outcome: CBC- no leukocytosis, CMP, Lactic Acid, Troponin-pending Chest Xray taken unable to view image- Cody system down EKG- changes noted with artifact, will need to repeat EKG for better comparison ABG reviewed-7.43/35.5/52.2/23.1/86.1 Little improvement on Bipap spo2 88-91% Patient accepted to ICU for Acute Respiratory Failure with Hypoxia Requiring probable intubation Critical Care Total Critical Care Time (in minutes): 40 Critical Care Statement: The care of this patient involved high complexity decision making to prevent further life threatening deterioration of the patient 's condition and/or to evaluate & treat vital organ system(s) failure or risk of failure.
[2019-07-25 05:39] LABS: ARTERIAL BLD GAS O2 SATURATION 86.1 % (95-98); ARTERIAL BLOOD GAS BASE EXCESS -0.3 meq/l (-2-2); ARTERIAL BLOOD GAS PCO2 35.5 mmHg (35-45); ARTERIAL BLOOD GAS PO2 52.2 mmHg (80-100); ARTERIAL BLOOD GAS pH 7.43 (7.35-7.45)
--- NOTE | 2019-07-25 06:10 | CONSULT ---
Consultation: REQUESTING PROVIDER: CONSULT REQUEST: We have been asked to medically evaluate this admitted patient for critical care management after she was found to be non responsive and hypoxic with O2 sat in the 80s. HISTORY OF PRESENT ILLNESS: This is a 73 year old woman with PMH significant for HTN, Alzheimer's dementia, COPD, Colon CA who presented to the ER [place] with complaints of AMS, worsening productive cough for the past 2 days. She was admitted for management of suspected aspiration pneumonia. Patient is non-verbal at baseline. She is usually able to recognize her , but has been unable to do so for the past 2 days, hence raising suspicion of AMS. REVIEW OF SYSTEMS: Patient unresponsive, unable to assess review of systems CONSTITUTIONAL: Absent: fever, chills, diaphoresis, generalized weakness, malaise, loss of appetite, weight change HEENT: Absent: rhinorrhea, nasal congestion, throat pain, throat swelling, difficulty swallowing, mouth swelling, ear pain, eye pain, visual changes CARDIOVASCULAR: Absent: chest pain, syncope, palpitations, irregular heart rate, lightheadedness , peripheral edema RESPIRATORY: Absent: cough, shortness of breath, dyspnea with exertion, orthopnea, wheezing, stridor, hemoptysis GASTROINTESTINAL: Absent: abdominal pain, abdominal distension, nausea, vomiting, diarrhea, constipation, melena, hematochezia GENITOURINARY: Absent: dysuria, frequency, urgency, hesitancy, hematuria, flank pain, genital pain MUSCULOSKELETAL: Absent: myalgia, arthralgia, joint swelling, back pain, neck pain SKIN: Absent: rash, itching, pallor HEMATOLOGIC/IMMUNOLOGIC: Absent: easy bleeding, easy bruising, lymphadenopathy, frequent infections ENDOCRINE: Absent: unexplained weight gain, unexplained weight loss, heat intolerance, cold intolerance NEUROLOGIC: Absent: headache, focal weakness or paresthesias, dizziness, unsteady gait, seizure, mental status changes, bladder or bowel incontinence PSYCHIATRIC: Absent: anxiety, depression, suicidal or homicidal ideation, hallucinations. PHYSICAL EXAMINATION Vital Signs - 24 hr 07/24/19 07/24/19 07/24/19 06:00 08:27 08:33 Temperature 99.1 F 98.9 F Pulse Rate 75 82 Respiratory 20 20 20 Rate Blood Pressure 125/64 134/78 O2 Sat by Pulse 96 Oximetry (%) 07/24/19 07/24/19 07/24/19 08:46 08:48 18:00 Temperature Pulse Rate 82 83 106 H Respiratory 20 Rate Blood Pressure 147/59 L O2 Sat by Pulse 95 88 L Oximetry (%) 07/24/19 07/24/19 21:00 22:00 Temperature 98 F Pulse Rate 95 H Respiratory 20 20 Rate Blood Pressure 141/100 O2 Sat by Pulse 93 L 94 L Oximetry (%) GENERAL: AOx1 to self only, diaphoretic HEAD: Normal with no signs of trauma. EYES: MARIAH LUNGS: Coarse breath sounds B/L HEART: RRR ABDOMEN: Soft, nontender LOWER EXTREMITIES: NEUROLOGICAL: Unintelligible speech, anxious, does not follow commands SKIN: No rashes or lesions noted Laboratory Results - last 24 hr 07/24/19 07/24/19 07/24/19 06:33 06:33 06:33 WBC 5.4 RBC 3.84 Hgb 12.3 Hct 36.3 MCV 94.4 MCH 32.0 MCHC 33.9 RDW 14.2 Plt Count 176 MPV 9.6 Absolute Neuts (auto) 2.9 Neutrophils % 53.2 Lymphocytes % 29.9 D Monocytes % 14.6 H Eosinophils % 1.8 Basophils % 0.5 Nucleated RBC % 0 Anticoagulation Therapy O2 Delivery Device Oxygen Flow Rate Vent Mode Vent Rate Mechanical Rate Pressure Support Vent Sodium 145 Potassium 3.4 L Chloride 112 H Carbon Dioxide 27 Anion Gap 6 L BUN 10.9 Creatinine 0.4 L Est GFR (CKD-EPI)AfAm 119.76 Est GFR (CKD-EPI)NonAf 103.33 Random Glucose 138 H Hemoglobin A1c % 6.8 H Calcium 8.9 Total Bilirubin 0.3 AST 20 ALT 21 Alkaline Phosphatase 84 Total Protein 5.8 L Albumin 2.7 L Triglycerides 202 H Cholesterol 180 Total LDL Cholesterol 99 HDL Cholesterol 45 TSH 3.22 07/25/19 05:30 WBC RBC Hgb Hct MCV MCH MCHC RDW Plt Count MPV Absolute Neuts (auto) Neutrophils % Lymphocytes % Monocytes % Eosinophils % Basophils % Nucleated RBC % Anticoagulation Therapy No Result Required. O2 Delivery Device No Result Required. Oxygen Flow Rate No Result Required. Vent Mode No Result Required. Vent Rate No Result Required. Mechanical Rate No Result Required. Pressure Support Vent No Result Required. Sodium Potassium Chloride Carbon Dioxide Anion Gap BUN Creatinine Est GFR (CKD-EPI)AfAm Est GFR (CKD-EPI)NonAf Random Glucose Hemoglobin A1c % Calcium Total Bilirubin AST ALT Alkaline Phosphatase Total Protein Albumin Triglycerides Cholesterol Total LDL Cholesterol HDL Cholesterol TSH Active Medications Generic Name Dose Route Start Last Admin Trade Name Kay PRN Reason Stop Dose Admin Aspirin 81 mg 07/23/19 10:00 07/24/19 10:08 Asa - PO 81 mg DAILY WILFRED Administration Atorvastatin Calcium 80 mg 07/22/19 22:00 07/24/19 22:06 Lipitor - PO 80 mg HS WILFRED Administration Budesonide/Formoterol Fumarate 2 puff 07/22/19 22:00 07/25/19 02:22 Symbicort 160/4.5mcg - IH Not Given BID WILFRED Donepezil HCl 10 mg 07/22/19 22:00 07/24/19 22:06 Aricept - PO 10 mg HS WILFRED Administration Gemfibrozil 600 mg 07/23/19 07:00 07/24/19 16:37 Lopid - PO 600 mg BIDAC WILFRED Administration Heparin Sodium (Porcine) 5,000 unit 07/23/19 22:00 07/24/19 22:07 Heparin - SQ 5,000 unit BID WILFRED Administration Ceftriaxone Sodium 1 gm/ 50 mls @ 100 mls/hr 07/23/19 13:15 07/24/19 09:21 Dextrose IVPB 100 mls/hr DAILY WILFRED Administration Protocol Metronidazole 500 mg in 100 mls @ 100 mls/hr 07/23/19 13:15 07/25/19 02:23 Flagyl 500mg Premixed Ivpb - IVPB 100 mls/hr Q8H-IV WILFRED Administration Sodium Chloride 1,000 mls @ 75 mls/hr 07/24/19 20:49 07/25/19 02:22 Normal Saline - IV 75 mls/hr ASDIR WILFRED Administration Levetiracetam 750 mg 07/23/19 13:00 07/24/19 22:06 Keppra Injection - IVPB 750 mg BID WILFRED Administration Memantine 5 mg 07/22/19 22:00 07/24/19 22:06 Namenda - PO 5 mg BID WILFRED Administration ASSESSMENT/PLAN: This is a 73 year old woman with PMH significant for HTN, Alzheimer's dementia, COPD, Colon CA who presented to the ER from [place] with complaints of AMS, worsening productive cough for the past 2 days. She was admitted on 07/22 for management of suspected PNA. On 07/25, ICU team was contacted by MAXWELL Puckett after the patient was found to be unresponsive to verbal or tactile stimulus with O2 sat 82% on NRB. #Neuro - Hx of Alzheimers, impaired cognition at baseline, continuing Home med Donepezil, Memantine - Brain MRI 07/24: - Head CT to r/o stroke 07/22: - On Keppra 750mg IV BID #[facility] [place] [place] ordered - On Lipitor 80mg - Hx of HTN: Primary care team holding PO HTN meds #Respiratory - Pt may need to be intubated due to respiratory distress most likely /2 PNA - Pt O2 82% on NRB, placed on Bag Valve Mask went up to 91%, placed on BiPAP - ABG on BVM: pH 7.43, CO2 35.5, Os 52.2, HCO3 23.1 - Chest CT 07/22: Small infiltrate right base - CXR pending - On Symbicort inhalre #ID - PNA, currently on Ceftriaxone, Metronidazole - WBC from this morning was 5.4, has been afebrile overnight - Urine cx 07/22: no growth #Heme - CBC ordered #GI - On Gemfibrozil #FEN - N/S @ 75 - CMP, Mg, Phos ordered #Prophylaxis - Heparin 5000 SQ #Dispo - Admit to ICU for management of respiratory distress, potential intubation - We will continue to follow the patient. Thank you for this consultative opportunity. ATTENDING PHYSICIAN STATEMENT I saw and evaluated the patient. I reviewed the resident's note and discussed the case with the resident. I agree with the resident's findings and plan as documented. SUBJECTIVE: OBJECTIVE: ASSESSMENT AND PLAN:
[2019-07-25] MEDS: GEMFIBROZIL 600 MG TABLET (FP) PO SCH ×2 (06:14→17:23)
[2019-07-25 06:21] LABS: BASO % 0.6 % (0-2.0); EOS % 2.7 % (0-4.5); HEMATOCRIT 39.3 % (32.4-45.2); HEMOGLOBIN 13.3 GM/dL (10.7-15.3); LYMPH % 29.5 % (8-40); MCH 32.1 pg (25.7-33.7); MCHC 33.8 g/dl (32.0-36.0); MEAN PLT VOLUME 9.3 fl (7.5-11.1); MONO % 10.7 % (3.8-10.2); NEUT % 56.5 % (42.8-82.8); PLATELET COUNT 208 K/MM3 (134-434); RBC 4.14 M/mm3 (3.60-5.2); RDW 14.6 % (11.6-15.6)
[2019-07-25 06:58] LABS: ALK PHOS 95 U/L (45-117); ANION GAP 4 MMOL/L (8-16); BILIRUBIN,TOTAL 0.2 mg/dL (0.2-1); BLOOD UREA NITROGEN 7.2 mg/dL (7-18); CALCIUM 9.1 mg/dL (8.5-10.1); CHLORIDE 116 mmol/L (98-107); CO2 25 mmol/L (21-32); CREATININE 0.6 mg/dL (0.55-1.3); GLUCOSE,RANDOM 153 mg/dL (74-106); MAGNESIUM 2.1 mg/dL (1.8-2.4); PHOSPHOROUS 2.8 mg/dL (2.5-4.9); SGOT/AST 20 U/L (15-37); SGPT/ALT 21 U/L (13-61); SODIUM 146 mmol/L (136-145); TOT PROT 6.5 g/dl (6.4-8.2)
--- NOTE | 2019-07-25 09:27 | PN ---
Progress Note (short form) - Note Progress Note: transferred to ICU for acute respiratory failure lethargic on BIPAP copious amount of sputum in mouth Vital Signs - 24 hr 07/24/19 07/24/19 07/25/19 21:00 22:00 05:38 Temperature 98 F Pulse Rate 95 H 88 Respiratory 20 20 24 H Rate Blood Pressure 141/100 123/87 O2 Sat by Pulse 93 L 94 L Oximetry (%) 07/25/19 07/25/19 07/25/19 05:45 06:21 08:00 Temperature 99 F Pulse Rate 81 91 H Respiratory 22 H 27 H Rate Blood Pressure 132/96 135/74 O2 Sat by Pulse 90 L Oximetry (%) 07/25/19 07/25/19 07/25/19 08:38 09:00 10:00 Temperature Pulse Rate 84 Respiratory 29 H Rate Blood Pressure 134/81 O2 Sat by Pulse 93 L 96 Oximetry (%) 07/25/19 07/25/19 07/25/19 10:30 11:49 12:00 Temperature Pulse Rate 96 H Respiratory 27 H Rate Blood Pressure 132/75 O2 Sat by Pulse 96 100 Oximetry (%) 07/25/19 07/25/19 07/25/19 12:55 13:21 14:00 Temperature 97.3 F L Pulse Rate 93 H Respiratory 28 H Rate Blood Pressure 161/70 O2 Sat by Pulse 99 96 Oximetry (%) 07/25/19 07/25/19 07/25/19 16:00 18:00 18:22 Temperature 97.6 F Pulse Rate 74 78 Respiratory 21 H 21 H Rate Blood Pressure 114/76 132/59 L O2 Sat by Pulse 97 Oximetry (%) Current Medications Generic Name Dose Route Start Last Admin Trade Name Freq PRN Reason Stop Dose Admin Acetylcysteine 1,000 mg 07/25/19 16:00 07/25/19 16:57 Mucomyst 20 Oral / Inh Use Only* NEB 1,000 mg RQID WILFRED Administration Albuterol Sulfate 1 amp 07/25/19 16:00 07/25/19 16:57 Ventolin 0.083% Nebulizer Soln - NEB 1 amp RQID WILFRED Administration Aspirin 81 mg 07/25/19 10:00 07/25/19 13:13 Asa - PO Not Given DAILY WILFRED Atorvastatin Calcium 80 mg 07/25/19 22:00 Lipitor - PO HS WILFRED Budesonide/Formoterol Fumarate 2 puff 07/25/19 10:00 07/25/19 13:15 Symbicort 160/4.5mcg - IH Not Given BID WILFRED Chlorhexidine Gluconate 1 applic 07/25/19 22:00 Hibiclens For Decolonization - TP HS WILFRED Donepezil HCl 10 mg 07/25/19 22:00 Aricept - PO HS WILFRED Gemfibrozil 600 mg 07/25/19 16:30 07/25/19 17:23 Lopid - PO Not Given BIDAC WILFRED Heparin Sodium (Porcine) 5,000 unit 07/25/19 10:00 07/25/19 12:07 Heparin - SQ 5,000 unit BID WILFRED Administration Ceftriaxone Sodium 1 gm/ 50 mls @ 100 mls/hr 07/25/19 10:00 07/25/19 12:09 Dextrose IVPB 100 mls/hr DAILY WILFRED Administration Protocol Metronidazole 500 mg in 100 mls @ 100 mls/hr 07/25/19 10:00 07/25/19 17:47 Flagyl 500mg Premixed Ivpb - IVPB 100 mls/hr Q8H-IV WILFRED Administration Levetiracetam 750 mg 07/25/19 10:00 07/25/19 12:07 Keppra Injection - IVPB 750 mg BID WILFRED Administration Memantine 5 mg 07/25/19 10:00 07/25/19 13:14 Namenda - PO Not Given BID WILFRED Methylprednisolone Sodium Succinate 40 mg 07/25/19 12:30 07/25/19 17:48 Solu-Medrol - IVPUSH 40 mg Q8H-IV WILFRED Administration Mupirocin 1 applic 07/25/19 10:00 07/25/19 13:15 Bactroban Ointment (For Decolonization) - NS 07/30/19 09:59 Not Given BID WILFRED Pantoprazole Sodium 40 mg 07/26/19 10:00 Protonix Iv IVPUSH DAILY [facility] Laboratory Results - last 24 hr 07/25/19 07/25/19 07/25/19 04:49 05:30 05:48 WBC 6.0 RBC 4.14 Hgb 13.3 Hct 39.3 MCV 95.0 MCH 32.1 MCHC 33.8 RDW 14.6 Plt Count 208 MPV 9.3 Absolute Neuts (auto) 3.4 Neutrophils % 56.5 Lymphocytes % 29.5 Monocytes % 10.7 H Eosinophils % 2.7 Basophils % 0.6 Nucleated RBC % 0 Anticoagulation Therapy No Result Required. Puncture Site No Result Required. Patient Temperature ABG pH 7.43 ABG pCO2 at Pt Temp 35.5 ABG pO2 at Pt Temp 52.2 L ABG HCO3 23.1 ABG O2 Sat (Measured) 86.1 L ABG O2 Content 15.1 ABG Base Excess -0.3 Blayne Test No Result Required. O2 Delivery Device No Result Required. Oxygen Flow Rate Yes Vent Mode No Result Required. Vent Rate No Result Required. Mechanical Rate No Result Required. PEEP Pressure Support Vent No Result Required. Sodium Potassium Chloride Carbon Dioxide Anion Gap BUN Creatinine Est GFR (CKD-EPI)AfAm Est GFR (CKD-EPI)NonAf POC Glucometer 164 Random Glucose Lactic Acid Calcium Phosphorus Magnesium Total Bilirubin AST ALT Alkaline Phosphatase Troponin I Total Protein Albumin 07/25/19 07/25/19 07/25/19 05:48 06:00 06:50 WBC RBC Hgb Hct MCV MCH MCHC RDW Plt Count MPV Absolute Neuts (auto) Neutrophils % Lymphocytes % Monocytes % Eosinophils % Basophils % Nucleated RBC % Anticoagulation Therapy Cancelled Puncture Site Cancelled Patient Temperature Cancelled ABG pH Cancelled ABG pCO2 at Pt Temp Cancelled ABG pO2 at Pt Temp Cancelled ABG HCO3 Cancelled ABG O2 Sat (Measured) Cancelled ABG O2 Content Cancelled ABG Base Excess Cancelled Blayne Test Cancelled O2 Delivery Device Cancelled Oxygen Flow Rate Cancelled Vent Mode Cancelled Vent Rate Cancelled Mechanical Rate Cancelled PEEP Cancelled Pressure Support Vent Cancelled Sodium 146 H Potassium 4.0 Chloride 116 H Carbon Dioxide 25 Anion Gap 4 L BUN 7.2 Creatinine 0.6 Est GFR (CKD-EPI)AfAm 104.80 Est GFR (CKD-EPI)NonAf 90.42 POC Glucometer Random Glucose 153 H Lactic Acid 2.3 H* Calcium 9.1 Phosphorus 2.8 Magnesium 2.1 Total Bilirubin 0.2 AST 20 ALT 21 Alkaline Phosphatase 95 Troponin I < 0.02 Total Protein 6.5 Albumin 3.0 L 07/25/19 15:38 WBC RBC Hgb Hct MCV MCH MCHC RDW Plt Count MPV Absolute Neuts (auto) Neutrophils % Lymphocytes % Monocytes % Eosinophils % Basophils % Nucleated RBC % Anticoagulation Therapy Puncture Site Patient Temperature ABG pH ABG pCO2 at Pt Temp ABG pO2 at Pt Temp ABG HCO3 ABG O2 Sat (Measured) ABG O2 Content ABG Base Excess Blayne Test O2 Delivery Device Oxygen Flow Rate Vent Mode Vent Rate Mechanical Rate PEEP Pressure Support Vent Sodium Potassium Chloride Carbon Dioxide Anion Gap BUN Creatinine Est GFR (CKD-EPI)AfAm Est GFR (CKD-EPI)NonAf POC Glucometer Random Glucose Lactic Acid 1.9 Calcium Phosphorus Magnesium Total Bilirubin AST ALT Alkaline Phosphatase Troponin I Total Protein Albumin S1 S2 RRR Lungs decreased Abd-soft, NT edema+ PLAN IV antibiotics for aspiration pneumonia ID and Neurology eval noted MRI brain negative for CVA may need intubation ICU monitoring Problem List - Problems (1) Toxic metabolic encephalopathy Code(s): G92 - TOXIC ENCEPHALOPATHY (2) Altered mental status Code(s): R41.82 - ALTERED MENTAL STATUS, UNSPECIFIED Qualifiers: Altered mental status type: unspecified Qualified Code(s): R41.82 - Altered mental status, unspecified (3) Aspiration pneumonia Code(s): J69.0 - PNEUMONITIS DUE TO INHALATION OF FOOD AND VOMIT (4) Acute respiratory failure Code(s): J96.00 - ACUTE RESPIRATORY FAILURE, UNSP W HYPOXIA OR HYPERCAPNIA
--- NOTE | 2019-07-25 11:17 | PN ---
Teaching Attending Note Name of Resident: César Ellis ATTENDING PHYSICIAN STATEMENT I saw and evaluated the patient. I reviewed the resident's note and discussed the case with the resident. I agree with the resident's findings and plan as documented. SUBJECTIVE: Pt seen and examined in the ICU. Transferred to ICU for acute hypoxic respiratory failure. Now on BiPAP 100% FiO2. at bedside, does not want intubation if oxygenation worsens. OBJECTIVE: Vital Signs Period Temp Pulse Resp BP Sys/Carr Pulse Ox Last 24 Hr 98 F-99 F 81-106 20-27 123-147/59-100 89-94 Intake & Output 07/22/19 07/23/19 07/24/19 07/25/19 23:59 23:59 23:59 23:59 Intake Total 250 1850 Balance 250 1850 Weight 69.853 kg 69.853 kg Gen: mildly tachypneic on BiPAP, poorly responsive Heart: RRR Lung: scattered rhonchi Abd: soft, nontender Ext: no edema CBC, BMP 07/25/19 05:48 07/25/19 05:48 Active Medications Aspirin (Asa -) 81 mg PO DAILY WILFRED Atorvastatin Calcium (Lipitor -) 80 mg PO HS WILFRED Budesonide/Formoterol Fumarate (Symbicort 160/4.5mcg -) 2 puff IH BID WILFRED Chlorhexidine Gluconate (Hibiclens For Decolonization -) 1 applic TP HS WILFRED Donepezil HCl (Aricept -) 10 mg PO HS WILFRED Gemfibrozil (Lopid -) 600 mg PO BIDAC WILFRED Heparin Sodium (Porcine) (Heparin -) 5,000 unit SQ BID WILFRED Ceftriaxone Sodium 1 gm/ (Dextrose) 50 mls @ 100 mls/hr IVPB DAILY WILFRED; Protocol Metronidazole (Flagyl 500mg Premixed Ivpb -) 500 mg in 100 mls @ 100 mls/hr IVPB Q8H-IV WILFRED Levetiracetam (Keppra Injection -) 750 mg IVPB BID WILFRED Memantine (Namenda -) 5 mg PO BID WILFRED Mupirocin (Bactroban Ointment (For Decolonization) -) 1 applic NS BID WILFRED Stop: 07/30/19 09:59 ASSESSMENT AND PLAN: Acute Hypoxic Respiratory Failure Pneumonia likely Aspiration Acute COPD Exacerbation h/o Colon Ca HTN Hyperlipidemia Alzheimer's Dementia - continue antibiotics - f/u cultures - chest PT - mucolytics - O2 to keep SpO2 >90% - BiPAP to assist in work of breathing - aspiration precautions - start IV medrol - inhaled bronchodilators - prognosis guarded, continue discussions regarding goals of care, advanced directives - continue ICU monitoring critical care time spent in reviewing chart, evaluating patient and formulating plan 35 min
--- NOTE | 2019-07-25 11:27 | PN ---
Progress Note, Physician History of Present Illness: TRANSFERRED TO ICU WITH RESP FAILURE LETHARGIC ON BIPAP BREATHING NON LABORED LOW GRADE TEMP, LACTIC ACIDOSIS NOTED - Current Medication List Current Medications: Active Medications Aspirin (Asa -) 81 mg PO DAILY WILFRED Atorvastatin Calcium (Lipitor -) 80 mg PO HS WILFRED Budesonide/Formoterol Fumarate (Symbicort 160/4.5mcg -) 2 puff IH BID WILFRED Chlorhexidine Gluconate (Hibiclens For Decolonization -) 1 applic TP HS WILFRED Donepezil HCl (Aricept -) 10 mg PO HS WILFRED Gemfibrozil (Lopid -) 600 mg PO BIDAC WILFRED Heparin Sodium (Porcine) (Heparin -) 5,000 unit SQ BID WILFRED Ceftriaxone Sodium 1 gm/ (Dextrose) 50 mls @ 100 mls/hr IVPB DAILY WILFRED; Protocol Metronidazole (Flagyl 500mg Premixed Ivpb -) 500 mg in 100 mls @ 100 mls/hr IVPB Q8H-IV WILFRED Levetiracetam (Keppra Injection -) 750 mg IVPB BID WILFRED Memantine (Namenda -) 5 mg PO BID WILFRED Mupirocin (Bactroban Ointment (For Decolonization) -) 1 applic NS BID WILFRED Stop: 07/30/19 09:59 - Objective Vital Signs: Vital Signs Temperature 99 F 07/25/19 06:21 Pulse Rate 84 07/25/19 10:00 Respiratory Rate 29 H 07/25/19 10:00 Blood Pressure 134/81 07/25/19 10:00 O2 Sat by Pulse Oximetry (%) 89 L 07/25/19 09:00 Constitutional: Yes: No Distress, Obese Cardiovascular: Yes: Regular Rate and Rhythm, S1, S2 Respiratory: Yes: Diminished Gastrointestinal: Yes: Normal Bowel Sounds, Soft. No: Tenderness Labs: CBC, BMP 07/25/19 05:48 07/25/19 05:48 INR, PTT INR 0.97 (0.83-1.09) 07/22/19 13:21 Assessment/Plan RESPIRATORY FAILURE EXACERBATION COPD PNEUMONIA LACTIC ACIDOSIS OBS OBTAIN BC CONTINUE CEFTRIAXONE/ FLAGYL
[2019-07-25] MEDS ORDERED: cefTRIAXone SODIUM 1 GM VIAL ONE (11:53)
[2019-07-25] MEDS ORDERED: DEXTROSE 5%-WATER - 50 ML IVPB ONE (11:54)
[2019-07-25] MEDS: HEPARIN NA (PORCINE) 5,000 UNITS/ML 1ML VIAL SQ SCH ×2 (12:07→21:14)
[2019-07-25] MEDS: levETIRAcetam 500 MG/5 ML INJECTION VIAL IVPB SCH ×2 (12:07→21:16)
[2019-07-25] MEDS: CEFTRIAXONE 1 GM in DEXTROSE 5%-WATER - 50 ML IVPB SCH (12:09)
--- NOTE | 2019-07-25 12:28 | PN ---
Physical Exam: SUBJECTIVE: Patient seen and examined during morning rounds and attending rounds. Family at bedside requests that she be made DNI, additional code status pending. Patient at 80% O2, weaning resulted in desaturation to mid-80s, increased O2 to 100%. OBJECTIVE: Vital Signs Period Temp Pulse Resp BP Sys/Carr Pulse Ox Last 24 Hr 98 F-99 F 81-106 20-29 123-147/59-100 89-100 GENERAL: The patient is drowsy, responds verbally to sternal rub, on BiPAP with mask. HEAD: Normal with no signs of trauma. EYES: PERRL, extraocular movements intact, sclera anicteric, conjunctiva clear. No ptosis. ENT: Nares patent, oropharynx clear without exudates, moist mucous membranes. NECK: Trachea midline. LUNGS: On BiPAP, breath sounds reduced on the left, coarse rhonchi. HEART: Regular rate and rhythm, S1, S2 without murmur, rub or gallop. ABDOMEN: Soft, nontender, nondistended, normoactive bowel sounds, no guarding, no rebound. EXTREMITIES: 2+ pulses, warm, well-perfused, no edema. NEUROLOGICAL: Obtunded, responsive to sternal rub, does not respond to commands PSYCH: Normal mood, normal affect. SKIN: Warm, dry, normal turgor, no rashes or lesions noted Laboratory Results - last 24 hr 07/25/19 07/25/19 07/25/19 05:30 05:48 05:48 WBC 6.0 RBC 4.14 Hgb 13.3 Hct 39.3 MCV 95.0 MCH 32.1 MCHC 33.8 RDW 14.6 Plt Count 208 MPV 9.3 Absolute Neuts (auto) 3.4 Neutrophils % 56.5 Lymphocytes % 29.5 Monocytes % 10.7 H Eosinophils % 2.7 Basophils % 0.6 Nucleated RBC % 0 Anticoagulation Therapy No Result Required. Puncture Site No Result Required. Patient Temperature ABG pH 7.43 ABG pCO2 at Pt Temp 35.5 ABG pO2 at Pt Temp 52.2 L ABG HCO3 23.1 ABG O2 Sat (Measured) 86.1 L ABG O2 Content 15.1 ABG Base Excess -0.3 Blayne Test No Result Required. O2 Delivery Device No Result Required. Oxygen Flow Rate Yes Vent Mode No Result Required. Vent Rate No Result Required. Mechanical Rate No Result Required. PEEP Pressure Support Vent No Result Required. Sodium 146 H Potassium 4.0 Chloride 116 H Carbon Dioxide 25 Anion Gap 4 L BUN 7.2 Creatinine 0.6 Est GFR (CKD-EPI)AfAm 104.80 Est GFR (CKD-EPI)NonAf 90.42 Random Glucose 153 H Lactic Acid Calcium 9.1 Phosphorus 2.8 Magnesium 2.1 Total Bilirubin 0.2 AST 20 ALT 21 Alkaline Phosphatase 95 Troponin I < 0.02 Total Protein 6.5 Albumin 3.0 L 07/25/19 07/25/19 06:00 06:50 WBC RBC Hgb Hct MCV MCH MCHC RDW Plt Count MPV Absolute Neuts (auto) Neutrophils % Lymphocytes % Monocytes % Eosinophils % Basophils % Nucleated RBC % Anticoagulation Therapy Cancelled Puncture Site Cancelled Patient Temperature Cancelled ABG pH Cancelled ABG pCO2 at Pt Temp Cancelled ABG pO2 at Pt Temp Cancelled ABG HCO3 Cancelled ABG O2 Sat (Measured) Cancelled ABG O2 Content Cancelled ABG Base Excess Cancelled Blayne Test Cancelled O2 Delivery Device Cancelled Oxygen Flow Rate Cancelled Vent Mode Cancelled Vent Rate Cancelled Mechanical Rate Cancelled PEEP Cancelled Pressure Support Vent Cancelled Sodium Potassium Chloride Carbon Dioxide Anion Gap BUN Creatinine Est GFR (CKD-EPI)AfAm Est GFR (CKD-EPI)NonAf Random Glucose Lactic Acid 2.3 H* Calcium Phosphorus Magnesium Total Bilirubin AST ALT Alkaline Phosphatase Troponin I Total Protein Albumin Active Medications Generic Name Dose Route Start Last Admin Trade Name Freq PRN Reason Stop Dose Admin Acetylcysteine 1,000 mg 07/25/19 16:00 Mucomyst 20 Oral / Inh Use Only* NEB RQID WILFRED Albuterol Sulfate 1 amp 07/25/19 16:00 Ventolin 0.083% Nebulizer Soln - NEB RQID WILFRED Aspirin 81 mg 07/25/19 10:00 Asa - PO DAILY WILFRED Atorvastatin Calcium 80 mg 07/25/19 22:00 Lipitor - PO HS WILFRED Budesonide/Formoterol Fumarate 2 puff 07/25/19 10:00 Symbicort 160/4.5mcg - IH BID WILFRED Chlorhexidine Gluconate 1 applic 07/25/19 22:00 Hibiclens For Decolonization - TP HS WILFRED Donepezil HCl 10 mg 07/25/19 22:00 Aricept - PO HS WILFRED Gemfibrozil 600 mg 07/25/19 16:30 Lopid - PO BIDAC WILFRED Heparin Sodium (Porcine) 5,000 unit 07/25/19 10:00 07/25/19 12:07 Heparin - SQ 5,000 unit BID WILFRED Administration Ceftriaxone Sodium 1 gm/ 50 mls @ 100 mls/hr 07/25/19 10:00 07/25/19 12:09 Dextrose IVPB 100 mls/hr DAILY WILFRED Administration Protocol Metronidazole 500 mg in 100 mls @ 100 mls/hr 07/25/19 10:00 07/25/19 12:07 Flagyl 500mg Premixed Ivpb - IVPB 100 mls/hr Q8H-IV WILFRED Administration Levetiracetam 750 mg 07/25/19 10:00 07/25/19 12:07 Keppra Injection - IVPB 750 mg BID WILFRED Administration Memantine 5 mg 07/25/19 10:00 Namenda - PO BID WILFRED Methylprednisolone Sodium Succinate 40 mg 07/25/19 12:30 Solu-Medrol - IVPUSH Q8H-IV WILFRED Mupirocin 1 applic 07/25/19 10:00 Bactroban Ointment (For Decolonization) - NS 07/30/19 09:59 BID WILFRED ASSESSMENT/PLAN: This is a 73 year old woman with PMH significant for HTN, Alzheimer's dementia, COPD, Colon CA who presented to the ER from [place] with complaints of AMS, worsening productive cough for the past 2 days. She was admitted on 07/22 for management of suspected PNA. On 07/25, ICU team was contacted by MAXWELL Puckett after the patient was found to be unresponsive to verbal or tactile stimulus with O2 sat 82% on NRB. Now responsive to tactile stimulus. #Neuro - Hx of Alzheimers, impaired cognition at baseline, continuing Home med Donepezil, Memantine - Brain MRI 07/24 - Head CT to r/o stroke 07/22 - On Keppra 750mg IV BID #CV - Troponin negative - On Lipitor 80mg - Hx of HTN: Primary care team holding PO HTN meds #Pulm - Pt is DNI, may switch to HiFlo NC given aspiration risk with BiPAP - Solumedrol 40 q56h - Duonebs - Mucomyst 1000ml per discussion with pharmacy - Chest PT - Hold IVF - Pt O2 82% on NRB, placed on Bag Valve Mask went up to 91%, placed on BiPAP - ABG on BVM: pH 7.43, CO2 35.5, Os 52.2, HCO3 23.1 - Chest CT 07/22: Small infiltrate right base - CXR pending - On Symbicort inhaler #ID - PNA, currently on Ceftriaxone, Metronidazole - Trend lactic acid - WBC from this morning was 5.4, has been afebrile overnight - Urine cx 07/22: no growth #Heme - Trend CBC #GI - On Gemfibrozil - NPO, aspiration risk #FEN - N/S @ 75 - CMP, Mg, Phos ordered #Prophylaxis - Heparin 5000 SQ #Dispo - ICU for management of respiratory distress - We will continue to follow the patient. Thank you for this consultative opportunity. Code Status: DNI Visit type - Emergency Visit Emergency Visit: Yes ED Registration Date: 07/22/19 Care time: The patient presented to the Emergency Department on the above date and was hospitalized for further evaluation of their emergent condition. - New Patient This patient is new to me today: Yes Date on this admission: 07/27/19 - Critical Care Critical Care patient: Yes Total Critical Care Time (in minutes): 36 Critical Care Statement: The care of this patient involved high complexity decision making to prevent further life threatening deterioration of the patient 's condition and/or to evaluate & treat vital organ system(s) failure or risk of failure. ATTENDING PHYSICIAN STATEMENT I saw and evaluated the patient. I reviewed the resident's note and discussed the case with the resident. I agree with the resident's findings and plan as documented. SUBJECTIVE: OBJECTIVE: ASSESSMENT AND PLAN:
[2019-07-25] MEDS: ASPIRIN 81 MG CHEWABLE TABLETS PO SCH (13:13)
[2019-07-25] MEDS: MEMANTINE HCL 5 MG TABLET (UD) PO SCH ×2 (13:14→21:10)
[2019-07-25] MEDS: MUPIROCIN 2% TOPICAL OINTMENT FOR DECOLONIZATION NS SCH ×2 (13:15→21:16)
[2019-07-25] MEDS: methylPREDNISolone NA SUCC 40 MG/1 ML VIAL IVPUSH SCH ×2 (14:17→17:48)
[2019-07-25] MEDS ORDERED: ALBUTEROL SO4 2.5/IPRATROPIUM 0.5 INH SOL 3 ML VIAL.NEB. NEB SCH (16:00)
[2019-07-25] MEDS: ACETYLCYSTEINE 20% 200MG/ML 4 ML VIAL *FOR ORAL / INH USE ONLY NEB SCH ×2 (16:57→21:15)
[2019-07-25] MEDS: ALBUTEROL SO4 0.083% IH SOL 2.5 MG/3 ML VIAL.NEB. NEB SCH ×2 (16:57→21:15)
[2019-07-25] MEDS ORDERED: PANTOPRAZOLE SODIUM 40 MG VIAL IVPUSH ONE (17:26)
[2019-07-25] MEDS: ATORVASTATIN CA 80 MG TABLET (FP) PO SCH (21:10)
[2019-07-25] MEDS: CHLORHEXIDINE GLUCONATE 4% CLEANSER FOR DECOLONIZATION TP SCH (21:15)
[2019-07-25] MEDS: DONEPEZIL HCL 10 MG TABLET (FP) PO SCH (21:15)
[2019-07-26] MEDS: methylPREDNISolone NA SUCC 40 MG/1 ML VIAL IVPUSH SCH ×3 (01:11→17:06)
[2019-07-26] MEDS: GEMFIBROZIL 600 MG TABLET (FP) PO SCH ×2 (06:42→17:04)
--- NOTE | 2019-07-26 07:17 | PN ---
Physical Exam: SUBJECTIVE: Patient seen and examined. Per aide at bedside patient is non- verbal at baseline. Patient talking incoherently while on BiPAP. As per patient does shake her extremities at baseline. Attempted to trial patient on High-flow oxygen but patient was de-satting to low 80s SpO2. Started patient on BiPAP again. OBJECTIVE: Vital Signs Period Temp Pulse Resp BP Sys/Carr Pulse Ox Last 24 Hr 97.3 F-98 F 61-96 14-29 106-161/59-81 89-100 GENERAL: confused, speaking incoherently HEAD: Normal with no signs of trauma. ENT: dry mucous membranes. NECK: Trachea midline, full range of motion, supple. LUNGS: coarse breath sounds bilaterally, Left worse than left. no accessory muscle use HEART: Regular rate and rhythm, S1, S2 ABDOMEN: Soft, nontender, nondistended, normoactive bowel sounds EXTREMITIES: 2+ pulses, warm Laboratory Results - last 24 hr 07/25/19 07/25/19 07/25/19 04:49 06:00 06:50 Anticoagulation Therapy Cancelled Puncture Site Cancelled Patient Temperature Cancelled ABG pH Cancelled ABG pCO2 at Pt Temp Cancelled ABG pO2 at Pt Temp Cancelled ABG HCO3 Cancelled ABG O2 Sat (Measured) Cancelled ABG O2 Content Cancelled ABG Base Excess Cancelled Blayne Test Cancelled O2 Delivery Device Cancelled Oxygen Flow Rate Cancelled Vent Mode Cancelled Vent Rate Cancelled Mechanical Rate Cancelled PEEP Cancelled Pressure Support Vent Cancelled POC Glucometer 164 Lactic Acid 2.3 H* 07/25/19 15:38 Anticoagulation Therapy Puncture Site Patient Temperature ABG pH ABG pCO2 at Pt Temp ABG pO2 at Pt Temp ABG HCO3 ABG O2 Sat (Measured) ABG O2 Content ABG Base Excess Blayne Test O2 Delivery Device Oxygen Flow Rate Vent Mode Vent Rate Mechanical Rate PEEP Pressure Support Vent POC Glucometer Lactic Acid 1.9 Active Medications Generic Name Dose Route Start Last Admin Trade Name Freq PRN Reason Stop Dose Admin Acetylcysteine 1,000 mg 07/25/19 16:00 07/25/19 21:15 Mucomyst 20 Oral / Inh Use Only* NEB 1,000 mg RQID WILFRED Administration Albuterol Sulfate 1 amp 07/25/19 16:00 07/25/19 21:15 Ventolin 0.083% Nebulizer Soln - NEB 1 amp RQID WILFRED Administration Aspirin 81 mg 07/25/19 10:00 07/25/19 13:13 Asa - PO Not Given DAILY WILFRED Atorvastatin Calcium 80 mg 07/25/19 22:00 07/25/19 21:10 Lipitor - PO Not Given HS WILFRED Budesonide/Formoterol Fumarate 2 puff 07/25/19 10:00 07/25/19 21:10 Symbicort 160/4.5mcg - IH Not Given BID WILFRED Chlorhexidine Gluconate 1 applic 07/25/19 22:00 07/25/19 21:15 Hibiclens For Decolonization - TP 1 applic HS WILFRED Administration Donepezil HCl 10 mg 07/25/19 22:00 07/25/19 21:15 Aricept - PO Not Given HS WILFRED Gemfibrozil 600 mg 07/25/19 16:30 07/26/19 06:42 Lopid - PO Not Given BIDAC WILFRED Heparin Sodium (Porcine) 5,000 unit 07/25/19 10:00 07/25/19 21:14 Heparin - SQ 5,000 unit BID WILFRED Administration Ceftriaxone Sodium 1 gm/ 50 mls @ 100 mls/hr 07/25/19 10:00 07/25/19 12:09 Dextrose IVPB 100 mls/hr DAILY WILFRED Administration Protocol Metronidazole 500 mg in 100 mls @ 100 mls/hr 07/25/19 10:00 07/26/19 01:11 Flagyl 500mg Premixed Ivpb - IVPB 100 mls/hr Q8H-IV WILFRED Administration Levetiracetam 750 mg 07/25/19 10:00 07/25/19 21:16 Keppra Injection - IVPB 750 mg BID WILFRED Administration Memantine 5 mg 07/25/19 10:00 07/25/19 21:10 Namenda - PO Not Given BID WILFRED Methylprednisolone Sodium Succinate 40 mg 07/25/19 12:30 07/26/19 01:11 Solu-Medrol - IVPUSH 40 mg Q8H-IV WILFRED Administration Mupirocin 1 applic 07/25/19 10:00 07/25/19 21:16 Bactroban Ointment (For Decolonization) - NS 07/30/19 09:59 1 applic BID WILFRED Administration Pantoprazole Sodium 40 mg 07/26/19 10:00 Protonix Iv IVPUSH DAILY WILFRED ASSESSMENT/PLAN: 73 y/o/w with PMH significant for HTN, Alzheimer's dementia, COPD, Colon CA who presented to the ER from [place] with complaints of AMS, worsening productive cough for the past 2 days. She was admitted on 07/22 for management of suspected PNA. On 07/25, ICU team was contacted by MAXWELL Puckett after the patient was found to be unresponsive to verbal or tactile stimulus with O2 sat 82% on NRB. In ICU patient was responsive to tactile stimulus. #Neuro - Hx of Alzheimers, impaired cognition at baseline, continuing Home med Donepezil, Memantine - Brain MRI 07/24 - no hemorrhagic or ischemic changes - Head CT to r/o stroke 07/22 w/o acute pathology - On Keppra 750mg IV BID - Donepezil 10mg PO HS - Aspiration risk #CV - Troponin negative - On Lipitor 80mg - Hx of HTN: Primary care team holding PO HTN meds #Pulm - Pt is DNI, trialed on high-flow without success. Continue with BiPAP. Can trial again on High-flow when appropriate. - Solumedrol 40mg IV Q8hr - Ventolin, Symbicort - Mucomyst RQID - Chest PT - Hold IVF - Chest CT 07/22: Small infiltrate right base - CXR showing increased atelectasis of the left lung with shift of midline structures to the left side #ID - Continue rocephin, flagyl for suspected aspiration PNA - Start Zithromax for atypical coverage until legionella antigen is confirmed - Lactic acid normalized - WBC from this morning was 5.4, has been afebrile overnight - Urine cx 07/22: no growth - urine legionella antigen ordered #Heme - Trend CBC, H&H stable #GI - On Gemfibrozil - NPO, aspiration risk #FEN - NPO - monitor and replete lytes as needed #Prophylaxis - Heparin 5000 SQ - Protonix #Dispo - Continue ICU management Visit type - Emergency Visit Emergency Visit: Yes ED Registration Date: 07/22/19 Care time: The patient presented to the Emergency Department on the above date and was hospitalized for further evaluation of their emergent condition. - New Patient This patient is new to me today: Yes Date on this admission: 07/26/19 - Critical Care Critical Care patient: Yes Total Critical Care Time (in minutes): 36 Critical Care Statement: The care of this patient involved high complexity decision making to prevent further life threatening deterioration of the patient 's condition and/or to evaluate & treat vital organ system(s) failure or risk of failure. ATTENDING PHYSICIAN STATEMENT I saw and evaluated the patient. I reviewed the resident's note and discussed the case with the resident. I agree with the resident's findings and plan as documented. SUBJECTIVE: OBJECTIVE: ASSESSMENT AND PLAN:
[2019-07-26 07:34] LABS: BASO % 0.3 % (0-2.0); HEMATOCRIT 39.5 % (32.4-45.2); HEMOGLOBIN 13.2 GM/dL (10.7-15.3); LYMPH % 18.5 % (8-40); MCH 32.2 pg (25.7-33.7); MCHC 33.4 g/dl (32.0-36.0); MEAN CELL VOLUME 96.3 fl (80-96); MEAN PLT VOLUME 9.5 fl (7.5-11.1); MONO % 3.6 % (3.8-10.2); NEUT % 77.6 % (42.8-82.8); PLATELET COUNT 230 K/MM3 (134-434); RBC 4.11 M/mm3 (3.60-5.2); RDW 14.7 % (11.6-15.6); WHITE BLOOD COUNT 6.2 K/mm3 (4.0-10.0)
[2019-07-26 07:58] LABS: ALBUMIN 2.8 g/dl (3.4-5.0); BILIRUBIN,TOTAL 0.3 mg/dL (0.2-1); BLOOD UREA NITROGEN 9.7 mg/dL (7-18); CALCIUM 9.6 mg/dL (8.5-10.1); CREATININE 0.6 mg/dL (0.55-1.3); MAGNESIUM 2.4 mg/dL (1.8-2.4); PHOSPHOROUS 3.3 mg/dL (2.5-4.9); POTASSIUM 4.2 mmol/L (3.5-5.1); TOT PROT 6.7 g/dl (6.4-8.2)
[2019-07-26] MEDS: ACETYLCYSTEINE 20% 200MG/ML 4 ML VIAL *FOR ORAL / INH USE ONLY NEB SCH ×4 (08:18→21:14)
[2019-07-26] MEDS: ALBUTEROL SO4 0.083% IH SOL 2.5 MG/3 ML VIAL.NEB. NEB SCH ×5 (08:21→21:14)
[2019-07-26] MEDS ORDERED: cefTRIAXone SODIUM 1 GM VIAL ONE (08:36)
[2019-07-26] MEDS ORDERED: DEXTROSE 5%-WATER - 50 ML IVPB ONE (08:36)
[2019-07-26] MEDS ORDERED: ALBUTEROL SO4 0.083% IH SOL 2.5 MG/3 ML VIAL.NEB. NEB PRN (08:53)
[2019-07-26] MEDS: ASPIRIN 81 MG CHEWABLE TABLETS PO SCH (09:00)
[2019-07-26] MEDS: HEPARIN NA (PORCINE) 5,000 UNITS/ML 1ML VIAL SQ SCH ×2 (09:01→21:35)
[2019-07-26] MEDS: PANTOPRAZOLE SODIUM 40 MG VIAL IVPUSH SCH (09:01)
[2019-07-26] MEDS: levETIRAcetam 500 MG/5 ML INJECTION VIAL IVPB SCH ×2 (09:02→21:35)
[2019-07-26] MEDS: MEMANTINE HCL 5 MG TABLET (UD) PO SCH ×2 (09:02→21:36)
[2019-07-26] MEDS: CEFTRIAXONE 1 GM in DEXTROSE 5%-WATER - 50 ML IVPB SCH (09:02)
[2019-07-26] MEDS: MUPIROCIN 2% TOPICAL OINTMENT FOR DECOLONIZATION NS SCH ×2 (09:03→21:36)
[2019-07-26] MEDS: BUDESONIDE/FORMETEROL FUMARATE 160/4.5 mcg INHALER IH SCH ×2 (09:04→21:36)
--- NOTE | 2019-07-26 09:58 | PN ---
Progress Note (short form) - Note Progress Note: PT SEEN/ EXAMINED IN ICU ON BIPAP LETHARGIC BUT OPENS EYES ALL F/U NOTED/ CHART REVIEWED Vital Signs Temp 97.6 F 07/26/19 04:00 Pulse 86 07/26/19 09:56 Resp 22 H 07/26/19 09:56 BP 136/75 07/26/19 08:00 Pulse Ox 96 07/26/19 07:39 Intake & Output 07/25/19 07/25/19 07/26/19 11:59 23:59 11:59 Intake Total 450 100 Balance 450 100 Intake: IVPB 450 100 Other: Voiding Method Diaper Diaper Diaper # Unmeasured Voids Void 1 1 2 Bowel Movement Yes No No # Bowel Movements 1 1 Active Medications Acetylcysteine (Mucomyst 20 Oral / Inh Use Only*) 1,000 mg NEB RQID [facility] Last Admin: 07/26/19 08:18 Dose: 1,000 mg Albuterol Sulfate (Ventolin 0.083% Nebulizer Soln -) 1 amp NEB Q4H [facility] Aspirin (Asa -) 81 mg PO DAILY [facility] Last Admin: 07/26/19 09:00 Dose: Not Given Atorvastatin Calcium (Lipitor -) 80 mg PO HS [facility] Last Admin: 07/25/19 21:10 Dose: Not Given Budesonide/Formoterol Fumarate (Symbicort 160/4.5mcg -) 2 puff IH BID [facility] Last Admin: 07/26/19 09:04 Dose: Not Given Chlorhexidine Gluconate (Hibiclens For Decolonization -) 1 applic TP HS [facility] Last Admin: 07/25/19 21:15 Dose: 1 applic Donepezil HCl (Aricept -) 10 mg PO HS [facility] Last Admin: 07/25/19 21:15 Dose: Not Given Gemfibrozil (Lopid -) 600 mg PO BIDAC [facility] Last Admin: 07/26/19 06:42 Dose: Not Given Heparin Sodium (Porcine) (Heparin -) 5,000 unit SQ BID [facility] Last Admin: 07/26/19 09:01 Dose: 5,000 unit Ceftriaxone Sodium 1 gm/ (Dextrose) 50 mls @ 100 mls/hr IVPB DAILY [facility]; Protocol Last Admin: 07/26/19 09:02 Dose: 100 mls/hr Metronidazole (Flagyl 500mg Premixed Ivpb -) 500 mg in 100 mls @ 100 mls/hr IVPB Q8H-IV [facility] Last Admin: 07/26/19 09:01 Dose: 100 mls/hr Levetiracetam (Keppra Injection -) 750 mg IVPB BID [facility] Last Admin: 07/26/19 09:02 Dose: 750 mg Memantine (Namenda -) 5 mg PO BID [facility] Last Admin: 07/26/19 09:02 Dose: Not Given Methylprednisolone Sodium Succinate (Solu-Medrol -) 40 mg IVPUSH Q8H-IV [facility] Last Admin: 07/26/19 09:01 Dose: 40 mg Mupirocin (Bactroban Ointment (For Decolonization) -) 1 applic NS BID [facility] Stop: 07/30/19 09:59 Last Admin: 07/26/19 09:03 Dose: Not Given Pantoprazole Sodium (Protonix Iv) 40 mg IVPUSH DAILY [facility] Last Admin: 07/26/19 09:01 Dose: 40 mg CBC, BMP 07/26/19 06:20 07/26/19 06:20 CXR - NOTED Physical Exam Drowsy/ arousable S1 S2 RRR Lungs decreased-- L>R Abd-soft, edema+ PLAN Respiratory failure On BIpap IV antibiotics for aspiration pneumonia ID and Neurology eval noted MRI brain negative for CVA ICU monitoring DNI Will follow Start on mild hydration as pt is not eating d/w pts also who is at bedside Problem List - Problems (1) Toxic metabolic encephalopathy Code(s): G92 - TOXIC ENCEPHALOPATHY (2) Altered mental status Code(s): R41.82 - ALTERED MENTAL STATUS, UNSPECIFIED Qualifiers: Altered mental status type: unspecified Qualified Code(s): R41.82 - Altered mental status, unspecified (3) Aspiration pneumonia Code(s): J69.0 - PNEUMONITIS DUE TO INHALATION OF FOOD AND VOMIT (4) Acute respiratory failure Code(s): J96.00 - ACUTE RESPIRATORY FAILURE, UNSP W HYPOXIA OR HYPERCAPNIA Problem List - Problems (1) Altered mental status Code(s): R41.82 - ALTERED MENTAL STATUS, UNSPECIFIED Qualifiers: Altered mental status type: unspecified Qualified Code(s): R41.82 - Altered mental status, unspecified (2) Aspiration pneumonia Code(s): J69.0 - PNEUMONITIS DUE TO INHALATION OF FOOD AND VOMIT
[2019-07-26] MEDS: D5-1/2NS+20 MEQ KCL - 20 MEQ/1,000 ML INFUS.BAG IV SCH (11:39)
[2019-07-26] MEDS ORDERED: ALBUTEROL SO4 2.5/IPRATROPIUM 0.5 INH SOL 3 ML VIAL.NEB. NEB SCH (12:00)
--- NOTE | 2019-07-26 12:38 | PN ---
Teaching Attending Note Name of Resident: Hayley Christianson ATTENDING PHYSICIAN STATEMENT I saw and evaluated the patient. I reviewed the resident's note and discussed the case with the resident. I agree with the resident's findings and plan as documented. SUBJECTIVE: Pt seen and examined in the ICU. Remains on BiPAP with 100% FiO2. Awake today, answering some questions per at bedside. Attempted HFOT but desaturated. OBJECTIVE: Vital Signs Period Temp Pulse Resp BP Sys/Carr Pulse Ox Last 24 Hr 97.3 F-98.6 F 61-93 14-28 106-161/59-76 93-99 Intake & Output 07/23/19 07/24/19 07/25/19 07/26/19 23:59 23:59 23:59 23:59 Intake Total 250 1850 450 400 Balance 250 1850 450 400 Weight 69.853 kg 69.853 kg Gen: mildly tachypneic on BiPAP Heart: RRR Lung: decreased breath sounds left, scattered rhonchi Abd: soft, nontender Ext: + edema CBC, BMP 07/26/19 06:20 07/26/19 06:20 Active Medications Acetylcysteine (Mucomyst 20 Oral / Inh Use Only*) 1,000 mg NEB RQID [facility] Last Admin: 07/26/19 11:00 Dose: 1,000 mg Albuterol Sulfate (Ventolin 0.083% Nebulizer Soln -) 1 amp NEB RQ4H [facility] Last Admin: 07/26/19 11:37 Dose: Not Given Aspirin (Asa -) 81 mg PO DAILY [facility] Last Admin: 07/26/19 09:00 Dose: Not Given Atorvastatin Calcium (Lipitor -) 80 mg PO [facility] Last Admin: 07/25/19 21:10 Dose: Not Given Budesonide/Formoterol Fumarate (Symbicort 160/4.5mcg -) 2 puff IH BID [facility] Last Admin: 07/26/19 09:04 Dose: Not Given Chlorhexidine Gluconate (Hibiclens For Decolonization -) 1 applic TP HS [facility] Last Admin: 07/25/19 21:15 Dose: 1 applic Donepezil HCl (Aricept -) 10 mg PO HS [facility] Last Admin: 07/25/19 21:15 Dose: Not Given Gemfibrozil (Lopid -) 600 mg PO BIDAC [facility] Last Admin: 07/26/19 06:42 Dose: Not Given Heparin Sodium (Porcine) (Heparin -) 5,000 unit SQ BID [facility] Last Admin: 07/26/19 09:01 Dose: 5,000 unit Ceftriaxone Sodium 1 gm/ (Dextrose) 50 mls @ 100 mls/hr IVPB DAILY [facility]; Protocol Last Admin: 07/26/19 09:02 Dose: 100 mls/hr Metronidazole (Flagyl 500mg Premixed Ivpb -) 500 mg in 100 mls @ 100 mls/hr IVPB Q8H-IV [facility] Last Admin: 07/26/19 09:01 Dose: 100 mls/hr Potassium Chloride/Dextrose/Sod Cl (D5-1/2ns+20 Meq Kcl -) 20 meq in 1,000 mls @ 100 mls/hr IV ASDIR [facility] Last Admin: 07/26/19 11:39 Dose: 100 mls/hr Levetiracetam (Keppra Injection -) 750 mg IVPB BID [facility] Last Admin: 07/26/19 09:02 Dose: 750 mg Memantine (Namenda -) 5 mg PO BID [facility] Last Admin: 07/26/19 09:02 Dose: Not Given Methylprednisolone Sodium Succinate (Solu-Medrol -) 40 mg IVPUSH Q8H-IV [facility] Last Admin: 07/26/19 09:01 Dose: 40 mg Mupirocin (Bactroban Ointment (For Decolonization) -) 1 applic NS BID [facility] Stop: 07/30/19 09:59 Last Admin: 07/26/19 09:03 Dose: Not Given Pantoprazole Sodium (Protonix Iv) 40 mg IVPUSH DAILY [facility] Last Admin: 07/26/19 09:01 Dose: 40 mg ASSESSMENT AND PLAN: Acute Hypoxic Respiratory Failure Pneumonia likely Aspiration Atelectasis Acute COPD Exacerbation h/o Colon Ca HTN Hyperlipidemia Alzheimer's Dementia - continue antibiotics - f/u cultures - chest PT - mucolytics - O2 to keep SpO2 >90% - BiPAP to assist in work of breathing - aspiration precautions - IV medrol - inhaled bronchodilators - prognosis guarded, continue discussions regarding goals of care, advanced directives - continue ICU monitoring critical care time spent in reviewing chart, evaluating patient and formulating plan 35 min
[2019-07-26 15:15] LABS: ARTERIAL BLD GAS O2 SATURATION 93.1 % (95-98); ARTERIAL BLOOD GAS BASE EXCESS 0.6 meq/l (-2-2); ARTERIAL BLOOD GAS PCO2 33.3 mmHg (35-45); ARTERIAL BLOOD GAS pH 7.46 (7.35-7.45)
[2019-07-26 15:19] LABS: ALLENS TEST POSITIVE
[2019-07-26] MEDS ORDERED: PT OWN MED DRAWER 7, Y5N ONE (17:26)
--- NOTE | 2019-07-26 17:54 | PN ---
Progress Note (short form) - Note Progress Note: transferred to ICU on bipap didnot tolerate hiflow oxygen Vital Signs Period Temp Pulse Resp BP Sys/Carr Pulse Ox Last 24 Hr 97.6 F-99.4 F 61-98 14-28 106-151/59-76 93-99 cor-rrr llungs decreased bs on the left abd soft,nt ext no edema CBC, BMP 07/26/19 06:20 07/26/19 06:20 cxray with left lung infiltrate/atelectasisi Microbiology 07/22/19 13:43 Urine - Urine - Catheterized Urine Culture - Final NO GROWTH OBTAINED Current Medications Acetylcysteine (Mucomyst 20 Oral / Inh Use Only*) 1,000 mg NEB RQID [facility] Last Admin: 07/26/19 16:24 Dose: 1,000 mg Albuterol Sulfate (Ventolin 0.083% Nebulizer Soln -) 1 amp NEB RQ4H [facility] Last Admin: 07/26/19 16:24 Dose: 1 amp Aspirin (Asa -) 81 mg PO DAILY [facility] Last Admin: 07/26/19 09:00 Dose: Not Given Atorvastatin Calcium (Lipitor -) 80 mg PO HS [facility] Last Admin: 07/25/19 21:10 Dose: Not Given Budesonide/Formoterol Fumarate (Symbicort 160/4.5mcg -) 2 puff IH BID [facility] Last Admin: 07/26/19 09:04 Dose: Not Given Chlorhexidine Gluconate (Hibiclens For Decolonization -) 1 applic TP HS [facility] Last Admin: 07/25/19 21:15 Dose: 1 applic Donepezil HCl (Aricept -) 10 mg PO HS [facility] Last Admin: 07/25/19 21:15 Dose: Not Given Gemfibrozil (Lopid -) 600 mg PO BIDAC [facility] Last Admin: 07/26/19 17:04 Dose: Not Given Heparin Sodium (Porcine) (Heparin -) 5,000 unit SQ BID [facility] Last Admin: 07/26/19 09:01 Dose: 5,000 unit Ceftriaxone Sodium 1 gm/ (Dextrose) 50 mls @ 100 mls/hr IVPB DAILY [facility]; Protocol Last Admin: 07/26/19 09:02 Dose: 100 mls/hr Metronidazole (Flagyl 500mg Premixed Ivpb -) 500 mg in 100 mls @ 100 mls/hr IVPB Q8H-IV [facility] Last Admin: 07/26/19 17:05 Dose: 100 mls/hr Potassium Chloride/Dextrose/Sod Cl (D5-1/2ns+20 Meq Kcl -) 20 meq in 1,000 mls @ 100 mls/hr IV ASDIR [facility] Last Admin: 07/26/19 11:39 Dose: 100 mls/hr Levetiracetam (Keppra Injection -) 750 mg IVPB BID [facility] Last Admin: 07/26/19 09:02 Dose: 750 mg Memantine (Namenda -) 5 mg PO BID [facility] Last Admin: 07/26/19 09:02 Dose: Not Given Methylprednisolone Sodium Succinate (Solu-Medrol -) 40 mg IVPUSH Q8H-IV [facility] Last Admin: 07/26/19 17:06 Dose: 40 mg Mupirocin (Bactroban Ointment (For Decolonization) -) 1 applic NS BID [facility] Stop: 07/30/19 09:59 Last Admin: 07/26/19 09:03 Dose: Not Given Pantoprazole Sodium (Protonix Iv) 40 mg IVPUSH DAILY [facility] Last Admin: 07/26/19 09:01 Dose: 40 mg a/p suspected aspiration pneumonia continue rocephin/flagyl legionella urinary antigen add atypical coverage zithromax until legionella antigen is back Problem List - Problems (1) Altered mental status Code(s): R41.82 - ALTERED MENTAL STATUS, UNSPECIFIED Qualifiers: Altered mental status type: unspecified Qualified Code(s): R41.82 - Altered mental status, unspecified (2) Aspiration pneumonia Code(s): J69.0 - PNEUMONITIS DUE TO INHALATION OF FOOD AND VOMIT
[2019-07-26] MEDS ORDERED: AZITHROMYCIN IVPB 500 MG/250 ML BAG IVPB ONE (17:57)
[2019-07-26] MEDS: CHLORHEXIDINE GLUCONATE 4% CLEANSER FOR DECOLONIZATION TP SCH (21:35)
[2019-07-26] MEDS: ATORVASTATIN CA 80 MG TABLET (FP) PO SCH (21:36)
[2019-07-26] MEDS: DONEPEZIL HCL 10 MG TABLET (FP) PO SCH (21:36)
[2019-07-27] MEDS: ALBUTEROL SO4 0.083% IH SOL 2.5 MG/3 ML VIAL.NEB. NEB SCH ×6 (00:23→20:37)
[2019-07-27] MEDS: methylPREDNISolone NA SUCC 40 MG/1 ML VIAL IVPUSH SCH ×3 (02:55→17:17)
[2019-07-27] MEDS: GEMFIBROZIL 600 MG TABLET (FP) PO SCH ×2 (06:34→17:16)
[2019-07-27] MEDS: ACETYLCYSTEINE 20% 200MG/ML 4 ML VIAL *FOR ORAL / INH USE ONLY NEB SCH ×4 (07:50→20:37)
[2019-07-27 08:00] LABS: ALBUMIN 2.8 g/dl (3.4-5.0); BILIRUBIN,TOTAL 0.2 mg/dL (0.2-1); BLOOD UREA NITROGEN 10.3 mg/dL (7-18); CALCIUM 9.1 mg/dL (8.5-10.1); CREATININE 0.7 mg/dL (0.55-1.3); MAGNESIUM 2.4 mg/dL (1.8-2.4); PHOSPHOROUS 3.1 mg/dL (2.5-4.9); POTASSIUM 4.3 mmol/L (3.5-5.1); TOT PROT 6.2 g/dl (6.4-8.2)
[2019-07-27] MEDS ORDERED: cefTRIAXone SODIUM 1 GM VIAL ONE (09:09)
[2019-07-27] MEDS ORDERED: DEXTROSE 5%-WATER - 50 ML IVPB ONE (09:09)
[2019-07-27 09:18] LABS: HEMATOCRIT 36.9 % (32.4-45.2); HEMOGLOBIN 12.2 GM/dL (10.7-15.3); MCHC 33.1 g/dl (32.0-36.0); MEAN CELL VOLUME 96.7 fl (80-96); MEAN PLT VOLUME 9.3 fl (7.5-11.1); PLATELET COUNT 249 K/MM3 (134-434); RBC 3.82 M/mm3 (3.60-5.2); RDW 14.4 % (11.6-15.6); WHITE BLOOD COUNT 7.9 K/mm3 (4.0-10.0)
[2019-07-27] MEDS: ASPIRIN 81 MG CHEWABLE TABLETS PO SCH (10:05)
[2019-07-27] MEDS: MUPIROCIN 2% TOPICAL OINTMENT FOR DECOLONIZATION NS SCH ×2 (10:05→21:14)
[2019-07-27] MEDS: PANTOPRAZOLE SODIUM 40 MG VIAL IVPUSH SCH (10:06)
[2019-07-27] MEDS: HEPARIN NA (PORCINE) 5,000 UNITS/ML 1ML VIAL SQ SCH ×2 (10:06→21:13)
[2019-07-27] MEDS: CEFTRIAXONE 1 GM in DEXTROSE 5%-WATER - 50 ML IVPB SCH (10:07)
[2019-07-27] MEDS: levETIRAcetam 500 MG/5 ML INJECTION VIAL IVPB SCH ×2 (10:08→21:14)
[2019-07-27] MEDS: MEMANTINE HCL 5 MG TABLET (UD) PO SCH ×2 (10:09→21:11)
[2019-07-27] MEDS: D5-1/2NS+20 MEQ KCL - 20 MEQ/1,000 ML INFUS.BAG IV SCH (10:09)
[2019-07-27] MEDS: BUDESONIDE/FORMETEROL FUMARATE 160/4.5 mcg INHALER IH SCH ×2 (10:10→21:11)
--- NOTE | 2019-07-27 10:17 | PN ---
Progress Note, FACILITY TECHNICIAN - Note Progress Note: Selected Entries 07/24/19 07/25/19 07/25/19 18:00 06:21 14:00 Breakfast Supper 100% Temperature 99 F 97.3 F L 07/25/19 07/25/19 07/25/19 18:00 19:37 20:00 Breakfast Supper NPO Temperature 97.6 F 97.8 F 07/26/19 07/26/19 07/26/19 00:00 04:00 10:23 Breakfast Supper Temperature 98 F 97.6 F 98.6 F 07/26/19 07/26/19 07/26/19 10:25 15:15 20:00 Breakfast NPO Supper Temperature 99.4 F 98.4 F 07/27/19 07/27/19 00:00 04:00 Breakfast Supper Temperature 98.3 F 98.3 F Laboratory Tests 07/27/19 05:25 WBC Cancelled Transferred to ICU for acute hypoxic respiratory failure. On BIPAP. Lethargic. Cough response on thin liquids during initial assessment. Pt downgraded to puree/nectar, overtly tolerated diet, now NPO. Suspect posible silent aspiration on thick liquids.
--- NOTE | 2019-07-27 10:51 | PN ---
Progress Note (short form) - Note Progress Note: transferred to ICU for acute respiratory failure on BIPAP at bedside Pt was responding to him She could not tolerate high flow yesterday , now back on BIPAP Vital Signs - 24 hr 07/26/19 07/26/19 07/26/19 14:00 14:25 15:15 Temperature 99.4 F Pulse Rate 83 Respiratory 26 H Rate Blood Pressure 135/69 O2 Sat by Pulse 95 Oximetry (%) 07/26/19 07/26/19 07/26/19 16:15 18:00 18:47 Temperature Pulse Rate 98 H 78 Respiratory 26 H 22 H Rate Blood Pressure 125/64 124/61 O2 Sat by Pulse 94 L Oximetry (%) 07/26/19 07/26/19 07/26/19 19:58 20:00 21:14 Temperature 98.4 F Pulse Rate 77 Respiratory 22 H 25 H Rate Blood Pressure 134/83 O2 Sat by Pulse 97 97 Oximetry (%) 07/26/19 07/27/19 07/27/19 22:00 00:00 00:22 Temperature 98.3 F Pulse Rate 70 95 H Respiratory 21 H 21 H Rate Blood Pressure 120/67 95/75 O2 Sat by Pulse 97 98 Oximetry (%) 07/27/19 07/27/19 07/27/19 02:00 04:00 04:31 Temperature 98.3 F Pulse Rate 51 L 55 L Respiratory 17 21 H Rate Blood Pressure 110/66 117/67 O2 Sat by Pulse 95 Oximetry (%) 07/27/19 07/27/19 07/27/19 06:00 08:00 08:22 Temperature Pulse Rate 67 77 Respiratory 23 H 22 H Rate Blood Pressure 140/76 158/77 O2 Sat by Pulse 98 Oximetry (%) 07/27/19 07/27/19 07/27/19 08:51 08:57 10:00 Temperature Pulse Rate 83 Respiratory 22 H 18 Rate Blood Pressure 160/78 O2 Sat by Pulse 98 98 Oximetry (%) 07/27/19 12:03 Temperature Pulse Rate Respiratory Rate Blood Pressure O2 Sat by Pulse 97 Oximetry (%) Current Medications Generic Name Dose Route Start Last Admin Trade Name Freq PRN Reason Stop Dose Admin Acetylcysteine 1,000 mg 07/25/19 16:00 07/27/19 11:40 Mucomyst 20 Oral / Inh Use Only* NEB 1,000 mg RQID [facility] Administration Albuterol Sulfate 1 amp 07/27/19 16:00 Ventolin 0.083% Nebulizer Soln - NEB RQID [facility] Aspirin 81 mg 07/25/19 10:00 07/27/19 10:05 Asa - PO Not Given DAILY [facility] Atorvastatin Calcium 80 mg 07/25/19 22:00 07/26/19 21:36 Lipitor - PO Not Given HS [facility] Budesonide/Formoterol Fumarate 2 puff 07/25/19 10:00 07/27/19 10:10 Symbicort 160/4.5mcg - IH Not Given BID [facility] Chlorhexidine Gluconate 1 applic 07/25/19 22:00 07/26/19 21:35 Hibiclens For Decolonization - TP 1 applic HS [facility] Administration Donepezil HCl 10 mg 07/25/19 22:00 07/26/19 21:36 Aricept - PO Not Given HS [facility] Gemfibrozil 600 mg 07/25/19 16:30 07/27/19 06:34 Lopid - PO Not Given BIDAC [facility] Heparin Sodium (Porcine) 5,000 unit 07/25/19 10:00 07/27/19 10:06 Heparin - SQ 5,000 unit BID [facility] Administration Ceftriaxone Sodium 1 gm/ 50 mls @ 100 mls/hr 07/25/19 10:00 07/27/19 10:07 Dextrose IVPB 100 mls/hr DAILY [facility] Administration Protocol Metronidazole 500 mg in 100 mls @ 100 mls/hr 07/25/19 10:00 07/27/19 10:05 Flagyl 500mg Premixed Ivpb - IVPB 100 mls/hr Q8H-IV [facility] Administration Potassium Chloride/Dextrose/Sod Cl 20 meq in 1,000 mls @ 100 mls/hr 07/26/19 10:00 07/27/19 10:09 D5-1/2ns+20 Meq Kcl - IV 100 mls/hr ASDIR [facility] Administration Levetiracetam 750 mg 07/25/19 10:00 07/27/19 10:08 Keppra Injection - IVPB 750 mg BID [facility] Administration Memantine 5 mg 07/25/19 10:00 07/27/19 10:09 Namenda - PO Not Given BID [facility] Methylprednisolone Sodium Succinate 40 mg 07/25/19 12:30 07/27/19 10:09 Solu-Medrol - IVPUSH 40 mg Q8H-IV [facility] Administration Mupirocin 1 applic 07/25/19 10:00 07/27/19 10:05 Bactroban Ointment (For Decolonization) - NS 07/30/19 09:59 1 applic BID [facility] Administration Pantoprazole Sodium 40 mg 07/26/19 10:00 07/27/19 10:06 Protonix Iv IVPUSH 40 mg DAILY [facility] Administration Laboratory Results - last 24 hr 07/26/19 07/27/19 07/27/19 14:55 05:25 05:25 WBC Cancelled Corrected WBC (auto) Cancelled RBC Cancelled Hgb Cancelled Hct Cancelled MCV Cancelled MCH Cancelled MCHC Cancelled RDW Cancelled Plt Count Cancelled MPV Cancelled Manual Slide Review Cancelled Platelet Comment Cancelled Puncture Site Right radial ABG pH 7.46 H ABG pCO2 at Pt Temp 33.3 L ABG pO2 at Pt Temp 68.0 L ABG HCO3 23.3 ABG O2 Sat (Measured) 93.1 L ABG O2 Content 19.2 ABG Base Excess 0.6 Blayne Test Positive Oxygen Flow Rate Yes Sodium 145 Potassium 4.3 Chloride 114 H Carbon Dioxide 24 Anion Gap 7 L BUN 10.3 Creatinine 0.7 Est GFR (CKD-EPI)AfAm 99.62 Est GFR (CKD-EPI)NonAf 85.95 Random Glucose 240 H Calcium 9.1 Phosphorus 3.1 Magnesium 2.4 Total Bilirubin 0.2 AST 37 ALT 32 Alkaline Phosphatase 83 Total Protein 6.2 L Albumin 2.8 L 07/27/19 09:10 WBC 7.9 Corrected WBC (auto) RBC 3.82 Hgb 12.2 Hct 36.9 MCV 96.7 H MCH 32.0 MCHC 33.1 RDW 14.4 Plt Count 249 MPV 9.3 Manual Slide Review Platelet Comment Puncture Site ABG pH ABG pCO2 at Pt Temp ABG pO2 at Pt Temp ABG HCO3 ABG O2 Sat (Measured) ABG O2 Content ABG Base Excess Blayne Test Oxygen Flow Rate Sodium Potassium Chloride Carbon Dioxide Anion Gap BUN Creatinine Est GFR (CKD-EPI)AfAm Est GFR (CKD-EPI)NonAf Random Glucose Calcium Phosphorus Magnesium Total Bilirubin AST ALT Alkaline Phosphatase Total Protein Albumin S1 S2 RRR Lungs decreased Abd-soft, NT edema+ PLAN IV antibiotics for aspiration pneumonia ID and Neurology eval noted MRI brain negative for CVA nebs continue with meds DNI Problem List - Problems (1) Toxic metabolic encephalopathy Code(s): G92 - TOXIC ENCEPHALOPATHY (2) Altered mental status Code(s): R41.82 - ALTERED MENTAL STATUS, UNSPECIFIED Qualifiers: Altered mental status type: unspecified Qualified Code(s): R41.82 - Altered mental status, unspecified (3) Aspiration pneumonia Code(s): J69.0 - PNEUMONITIS DUE TO INHALATION OF FOOD AND VOMIT (4) Acute respiratory failure Code(s): J96.00 - ACUTE RESPIRATORY FAILURE, UNSP W HYPOXIA OR HYPERCAPNIA (5) Functional quadriplegia Code(s): R53.2 - FUNCTIONAL QUADRIPLEGIA
--- NOTE | 2019-07-27 11:14 | PN ---
Teaching Attending Note Name of Resident: César Ellis ATTENDING PHYSICIAN STATEMENT I saw and evaluated the patient. I reviewed the resident's note and discussed the case with the resident. I agree with the resident's findings and plan as documented. SUBJECTIVE: Pt seen and examined in the ICU. Remains on BiPAP, awake on 80% FiO2. CXR slightly improved. OBJECTIVE: Vital Signs Period Temp Pulse Resp BP Sys/Carr Pulse Ox Last 24 Hr 98.3 F-99.4 F 51-98 17-28 95-160/61-83 94-98 Intake & Output 07/24/19 07/25/19 07/26/19 07/27/19 23:59 23:59 23:59 23:59 Intake Total 1850 450 900 800 Balance 1850 450 900 800 Weight 69.853 kg Gen: mildly tachypneic on BiPAP Heart: RRR Lung: decreased breath sounds at the bases Abd: soft, nontender Ext: no edema CBC, BMP 07/27/19 09:10 07/27/19 05:25 Active Medications Acetylcysteine (Mucomyst 20 Oral / Inh Use Only*) 1,000 mg NEB RQID [facility] Last Admin: 07/27/19 07:50 Dose: 1,000 mg Albuterol Sulfate (Ventolin 0.083% Nebulizer Soln -) 1 amp NEB RQ4H [facility] Last Admin: 07/27/19 07:50 Dose: 1 amp Aspirin (Asa -) 81 mg PO DAILY [facility] Last Admin: 07/27/19 10:05 Dose: Not Given Atorvastatin Calcium (Lipitor -) 80 mg PO HS [facility] Last Admin: 07/26/19 21:36 Dose: Not Given Budesonide/Formoterol Fumarate (Symbicort 160/4.5mcg -) 2 puff IH BID [facility] Last Admin: 07/27/19 10:10 Dose: Not Given Chlorhexidine Gluconate (Hibiclens For Decolonization -) 1 applic TP HS [facility] Last Admin: 07/26/19 21:35 Dose: 1 applic Donepezil HCl (Aricept -) 10 mg PO HS [facility] Last Admin: 07/26/19 21:36 Dose: Not Given Gemfibrozil (Lopid -) 600 mg PO BIDAC [facility] Last Admin: 07/27/19 06:34 Dose: Not Given Heparin Sodium (Porcine) (Heparin -) 5,000 unit SQ BID [facility] Last Admin: 07/27/19 10:06 Dose: 5,000 unit Ceftriaxone Sodium 1 gm/ (Dextrose) 50 mls @ 100 mls/hr IVPB DAILY [facility]; Protocol Last Admin: 07/27/19 10:07 Dose: 100 mls/hr Metronidazole (Flagyl 500mg Premixed Ivpb -) 500 mg in 100 mls @ 100 mls/hr IVPB Q8H-IV [facility] Last Admin: 07/27/19 10:05 Dose: 100 mls/hr Potassium Chloride/Dextrose/Sod Cl (D5-1/2ns+20 Meq Kcl -) 20 meq in 1,000 mls @ 100 mls/hr IV ASDIR [facility] Last Admin: 07/27/19 10:09 Dose: 100 mls/hr Levetiracetam (Keppra Injection -) 750 mg IVPB BID [facility] Last Admin: 07/27/19 10:08 Dose: 750 mg Memantine (Namenda -) 5 mg PO BID [facility] Last Admin: 07/27/19 10:09 Dose: Not Given Methylprednisolone Sodium Succinate (Solu-Medrol -) 40 mg IVPUSH Q8H-IV [facility] Last Admin: 07/27/19 10:09 Dose: 40 mg Mupirocin (Bactroban Ointment (For Decolonization) -) 1 applic NS BID [facility] Stop: 07/30/19 09:59 Last Admin: 07/27/19 10:05 Dose: 1 applic Pantoprazole Sodium (Protonix Iv) 40 mg IVPUSH DAILY [facility] Last Admin: 07/27/19 10:06 Dose: 40 mg ASSESSMENT AND PLAN: Acute Hypoxic Respiratory Failure Pneumonia likely Aspiration Atelectasis Acute COPD Exacerbation h/o Colon Ca HTN Hyperlipidemia Alzheimer's Dementia - continue antibiotics - f/u cultures - chest PT - mucolytics - taper O2 to keep SpO2 >90% - BiPAP to assist in work of breathing - aspiration precautions - continue medrol - inhaled bronchodilators - prognosis guarded, continue discussions regarding goals of care, advanced directives - can monitor on telemetry with pulse oximetry monitoring if oxygen requirements decreasing critical care time spent in reviewing chart, evaluating patient and formulating plan 35 min
--- NOTE | 2019-07-27 12:00 | PN ---
Physical Exam: SUBJECTIVE: Patient seen and examined. No acute overnight events. Patient talking incoherently while on BiPAP c/w reported baseline. Shakes her extremities at baseline. Yesterday failed High-flow oxygen (low 80s SpO2) today tried 60% FiO2 on BiPAP with desaturation to the low 90s. Goal for venturi mask / NGT feeds. If patient fails BiPAP, will start clinamix for nutrition. CXR with improvement , L lung opened up since yesterday. OBJECTIVE: Vital Signs Period Temp Pulse Resp BP Sys/Carr Pulse Ox Last 24 Hr 98.3 F-99.4 F 51-98 17-28 95-160/61-83 94-98 GENERAL: Confused, speaking incoherently, looking around the room. HEAD: Normal with no signs of trauma. ENT: Dry mucous membranes. NECK: Trachea midline, full range of motion, supple. LUNGS: Coarse breath sounds bilaterally, Left worse than left. no accessory muscle use HEART: Regular rate and rhythm, S1, S2 ABDOMEN: Soft, nontender, nondistended, normoactive bowel sounds EXTREMITIES: 2+ pulses, warm Laboratory Results - last 24 hr 07/26/19 07/27/19 07/27/19 14:55 05:25 05:25 WBC Cancelled Corrected WBC (auto) Cancelled RBC Cancelled Hgb Cancelled Hct Cancelled MCV Cancelled MCH Cancelled MCHC Cancelled RDW Cancelled Plt Count Cancelled MPV Cancelled Manual Slide Review Cancelled Platelet Comment Cancelled Puncture Site Right radial ABG pH 7.46 H ABG pCO2 at Pt Temp 33.3 L ABG pO2 at Pt Temp 68.0 L ABG HCO3 23.3 ABG O2 Sat (Measured) 93.1 L ABG O2 Content 19.2 ABG Base Excess 0.6 Blayne Test Positive Oxygen Flow Rate Yes Sodium 145 Potassium 4.3 Chloride 114 H Carbon Dioxide 24 Anion Gap 7 L BUN 10.3 Creatinine 0.7 Est GFR (CKD-EPI)AfAm 99.62 Est GFR (CKD-EPI)NonAf 85.95 Random Glucose 240 H Calcium 9.1 Phosphorus 3.1 Magnesium 2.4 Total Bilirubin 0.2 AST 37 ALT 32 Alkaline Phosphatase 83 Total Protein 6.2 L Albumin 2.8 L 07/27/19 09:10 WBC 7.9 Corrected WBC (auto) RBC 3.82 Hgb 12.2 Hct 36.9 MCV 96.7 H MCH 32.0 MCHC 33.1 RDW 14.4 Plt Count 249 MPV 9.3 Manual Slide Review Platelet Comment Puncture Site ABG pH ABG pCO2 at Pt Temp ABG pO2 at Pt Temp ABG HCO3 ABG O2 Sat (Measured) ABG O2 Content ABG Base Excess Blayne Test Oxygen Flow Rate Sodium Potassium Chloride Carbon Dioxide Anion Gap BUN Creatinine Est GFR (CKD-EPI)AfAm Est GFR (CKD-EPI)NonAf Random Glucose Calcium Phosphorus Magnesium Total Bilirubin AST ALT Alkaline Phosphatase Total Protein Albumin Active Medications Generic Name Dose Route Start Last Admin Trade Name Freq PRN Reason Stop Dose Admin Acetylcysteine 1,000 mg 07/25/19 16:00 07/27/19 07:50 Mucomyst 20 Oral / Inh Use Only* NEB 1,000 mg RQID [facility] Administration Albuterol Sulfate 1 amp 07/26/19 10:00 07/27/19 07:50 Ventolin 0.083% Nebulizer Soln - NEB 1 amp RQ4H [facility] Administration Aspirin 81 mg 07/25/19 10:00 07/27/19 10:05 Asa - PO Not Given DAILY [facility] Atorvastatin Calcium 80 mg 07/25/19 22:00 07/26/19 21:36 Lipitor - PO Not Given HS [facility] Budesonide/Formoterol Fumarate 2 puff 07/25/19 10:00 07/27/19 10:10 Symbicort 160/4.5mcg - IH Not Given BID [facility] Chlorhexidine Gluconate 1 applic 07/25/19 22:00 07/26/19 21:35 Hibiclens For Decolonization - TP 1 applic HS [facility] Administration Donepezil HCl 10 mg 07/25/19 22:00 07/26/19 21:36 Aricept - PO Not Given HS [facility] Gemfibrozil 600 mg 07/25/19 16:30 07/27/19 06:34 Lopid - PO Not Given BIDAC [facility] Heparin Sodium (Porcine) 5,000 unit 07/25/19 10:00 07/27/19 10:06 Heparin - SQ 5,000 unit BID [facility] Administration Ceftriaxone Sodium 1 gm/ 50 mls @ 100 mls/hr 07/25/19 10:00 07/27/19 10:07 Dextrose IVPB 100 mls/hr DAILY [facility] Administration Protocol Metronidazole 500 mg in 100 mls @ 100 mls/hr 07/25/19 10:00 07/27/19 10:05 Flagyl 500mg Premixed Ivpb - IVPB 100 mls/hr Q8H-IV [facility] Administration Potassium Chloride/Dextrose/Sod Cl 20 meq in 1,000 mls @ 100 mls/hr 07/26/19 10:00 07/27/19 10:09 D5-1/2ns+20 Meq Kcl - IV 100 mls/hr ASDIR [facility] Administration Levetiracetam 750 mg 07/25/19 10:00 07/27/19 10:08 Keppra Injection - IVPB 750 mg BID [facility] Administration Memantine 5 mg 07/25/19 10:00 07/27/19 10:09 Namenda - PO Not Given BID [facility] Methylprednisolone Sodium Succinate 40 mg 07/25/19 12:30 07/27/19 10:09 Solu-Medrol - IVPUSH 40 mg Q8H-IV [facility] Administration Mupirocin 1 applic 07/25/19 10:00 07/27/19 10:05 Bactroban Ointment (For Decolonization) - NS 07/30/19 09:59 1 applic BID [facility] Administration Pantoprazole Sodium 40 mg 07/26/19 10:00 07/27/19 10:06 Protonix Iv IVPUSH 40 mg DAILY [facility] Administration ASSESSMENT/PLAN: 73 y/o/w with PMH significant for HTN, Alzheimer's dementia, COPD, Colon CA who presented to the ER from [place] with complaints of AMS, worsening productive cough for the past 2 days. She was admitted on 07/22 for management of suspected PNA. On 07/25, ICU team was contacted by MAXWELL Puckett after the patient was found to be unresponsive to verbal or tactile stimulus with O2 sat 82% on NRB. In ICU patient was responsive to tactile stimulus. #Neuro - Hx of Alzheimers, impaired cognition at baseline, continuing Home med Donepezil, Memantine - Brain MRI 07/24 - no hemorrhagic or ischemic changes - Head CT to r/o stroke 07/22 w/o acute pathology - On Keppra 750mg IV BID - Donepezil 10mg PO HS - Aspiration risk, would prefer High-flow or venturi to BiPAP if tolerated #CV - Troponin negative - On Lipitor 80mg - Hx of HTN: Primary care team holding PO HTN meds #Pulm - Pt is DNI, trialed on high-flow without success. Continue with BiPAP. Can trial again on High-flow or venturi when appropriate. - Solumedrol 40mg IV Q8hr - Ventolin, Symbicort - Mucomyst RQID, changed orders to match RQID administration - Chest PT - Hold IVF - Chest CT 07/22: Small infiltrate right base - CXR 07/27 showing improved atelectasis of the left lung with increased aerated lung #ID - Continue rocephin, flagyl for suspected aspiration PNA - Start Zithromax for atypical coverage until legionella antigen is confirmed - Lactic acid normalized - WBC from this morning was 5.4, has been afebrile overnight - Urine cx 07/22: no growth - Urine legionella antigen ordered #Heme - Trend CBC, H&H stable #GI - On Gemfibrozil - NPO, aspiration risk - Plan for NG and tube feeds vs Clinamix pending oxygen intervention requirements #FEN - NPO - Monitor and replete lytes as needed #Prophylaxis - Heparin 5000 SQ - Protonix #Dispo - Continue ICU management Visit type - Emergency Visit Emergency Visit: Yes ED Registration Date: 07/22/19 Care time: The patient presented to the Emergency Department on the above date and was hospitalized for further evaluation of their emergent condition. - New Patient This patient is new to me today: No - Critical Care Critical Care patient: Yes Total Critical Care Time (in minutes): 36 Critical Care Statement: The care of this patient involved high complexity decision making to prevent further life threatening deterioration of the patient 's condition and/or to evaluate & treat vital organ system(s) failure or risk of failure. ATTENDING PHYSICIAN STATEMENT I saw and evaluated the patient. I reviewed the resident's note and discussed the case with the resident. I agree with the resident's findings and plan as documented. SUBJECTIVE: OBJECTIVE: ASSESSMENT AND PLAN:
[2019-07-27] MEDS ORDERED: AMINO ACIDS 4.25%/D5W 1,000 ML IV SCH (16:00)
[2019-07-27] MEDS: AMINO ACIDS 4.25%/D5W 1,000 ML IV SCH (18:25)
[2019-07-27] MEDS: DONEPEZIL HCL 10 MG TABLET (FP) PO SCH (21:10)
[2019-07-27] MEDS: ATORVASTATIN CA 80 MG TABLET (FP) PO SCH (21:11)
[2019-07-27] MEDS: CHLORHEXIDINE GLUCONATE 4% CLEANSER FOR DECOLONIZATION TP SCH (21:15)
[2019-07-28] MEDS: methylPREDNISolone NA SUCC 40 MG/1 ML VIAL IVPUSH SCH ×2 (03:25→10:07)
[2019-07-28] MEDS: GEMFIBROZIL 600 MG TABLET (FP) PO SCH ×2 (06:30→17:28)
[2019-07-28 06:48] LABS: BASO % 0.2 % (0-2.0); EOS % 0.1 % (0-4.5); HEMATOCRIT 35.5 % (32.4-45.2); LYMPH % 13.5 % (8-40); MCH 32.3 pg (25.7-33.7); MCHC 33.7 g/dl (32.0-36.0); MEAN CELL VOLUME 95.8 fl (80-96); MEAN PLT VOLUME 9.5 fl (7.5-11.1); MONO % 8.8 % (3.8-10.2); NEUT % 77.4 % (42.8-82.8); PLATELET COUNT 266 K/MM3 (134-434); RBC 3.71 M/mm3 (3.60-5.2); RDW 14.7 % (11.6-15.6); WHITE BLOOD COUNT 10.3 K/mm3 (4.0-10.0)
[2019-07-28 07:27] LABS: ALBUMIN 2.8 g/dl (3.4-5.0); BILIRUBIN,TOTAL 0.2 mg/dL (0.2-1); BLOOD UREA NITROGEN 10.3 mg/dL (7-18); CREATININE 0.7 mg/dL (0.55-1.3); MAGNESIUM 2.3 mg/dL (1.8-2.4); PHOSPHOROUS 2.1 mg/dL (2.5-4.9); POTASSIUM 3.9 mmol/L (3.5-5.1); TOT PROT 6.2 g/dl (6.4-8.2)
[2019-07-28] MEDS: ALBUTEROL SO4 0.083% IH SOL 2.5 MG/3 ML VIAL.NEB. NEB SCH ×3 (08:05→15:20)
[2019-07-28] MEDS: ACETYLCYSTEINE 20% 200MG/ML 4 ML VIAL *FOR ORAL / INH USE ONLY NEB SCH ×3 (08:05→15:20)
[2019-07-28] MEDS ORDERED: cefTRIAXone SODIUM 1 GM VIAL ONE (09:47)
[2019-07-28] MEDS ORDERED: DEXTROSE 5%-WATER - 50 ML IVPB ONE (09:47)
[2019-07-28] MEDS: ASPIRIN 81 MG CHEWABLE TABLETS PO SCH (10:05)
[2019-07-28] MEDS: HEPARIN NA (PORCINE) 5,000 UNITS/ML 1ML VIAL SQ SCH ×2 (10:06→21:56)
[2019-07-28] MEDS: MUPIROCIN 2% TOPICAL OINTMENT FOR DECOLONIZATION NS SCH (10:06)
[2019-07-28] MEDS: MEMANTINE HCL 5 MG TABLET (UD) PO SCH ×2 (10:07→22:47)
[2019-07-28] MEDS: PANTOPRAZOLE SODIUM 40 MG VIAL IVPUSH SCH (10:07)
[2019-07-28] MEDS: CEFTRIAXONE 1 GM in DEXTROSE 5%-WATER - 50 ML IVPB SCH (10:12)
[2019-07-28] MEDS: BUDESONIDE/FORMETEROL FUMARATE 160/4.5 mcg INHALER IH SCH (10:14)
[2019-07-28] MEDS: levETIRAcetam 500 MG/5 ML INJECTION VIAL IVPB SCH ×2 (10:19→21:55)
--- NOTE | 2019-07-28 10:24 | PN ---
Progress Note, [employer] - Note Progress Note: Aske to reassess pt, alert, more verbal than baseline and interactive.Good vocal quality. Precise speech production. Venti mask with o2 saturation at 96. I removed it and pt began breathing more rapidly, desaturated to 90 w/in 1 minute. Placed back on ventimask with slow recovery over next 2-3 minutes. No PO trials attempted with high aspiration risk. Pt receiving Clinimix, meds IV, NPO. REC:Continue strict NPO for now, monitor pulmonary status Option of continued Clinimix, meds IV vs NGT, if safe medically (Pt is now DNI) to use gut, provide nutrition, meds, hydration- Request RD input Pt will need MBS next week before PO trials
--- NOTE | 2019-07-28 10:41 | PN ---
Progress Note (short form) - Note Progress Note: transferred to ICU for acute respiratory failure on BIPAP at bedside pt awake and is talking was very talkative to staff here today on ventimask-- desatuates quickly when off Vital Signs - 24 hr 07/27/19 07/27/19 07/27/19 12:03 14:00 16:00 Temperature 98.5 F Pulse Rate 104 H 81 Respiratory 18 26 H Rate Blood Pressure 156/87 132/69 O2 Sat by Pulse 97 Oximetry (%) 07/27/19 07/27/19 07/27/19 16:17 18:00 20:00 Temperature Pulse Rate 69 76 Respiratory 32 H 21 H Rate Blood Pressure 140/86 143/72 O2 Sat by Pulse 94 L Oximetry (%) 07/27/19 07/28/19 07/28/19 22:00 00:00 02:00 Temperature 97.3 F L 97.6 F Pulse Rate 73 59 L 57 L Respiratory 32 H 32 H 26 H Rate Blood Pressure 149/121 H 140/88 135/71 O2 Sat by Pulse Oximetry (%) 07/28/19 07/28/19 07/28/19 03:45 04:00 06:00 Temperature 97.0 F L Pulse Rate 54 L 67 Respiratory 32 H 24 H 31 H Rate Blood Pressure 132/100 91/76 O2 Sat by Pulse 92 L Oximetry (%) 07/28/19 07/28/19 07/28/19 08:00 08:57 10:00 Temperature 97.2 F L 97.1 F L Pulse Rate 48 L 64 Respiratory 24 H 30 H Rate Blood Pressure 132/82 151/70 O2 Sat by Pulse 99 Oximetry (%) Current Medications Generic Name Dose Route Start Last Admin Trade Name Freq PRN Reason Stop Dose Admin Acetylcysteine 1,000 mg 07/25/19 16:00 07/27/19 20:37 Mucomyst 20 Oral / Inh Use Only* NEB 1,000 mg RQID [facility] Administration Albuterol Sulfate 1 amp 07/27/19 16:00 07/27/19 20:37 Ventolin 0.083% Nebulizer Soln - NEB 1 amp RQID [facility] Administration Aspirin 81 mg 07/25/19 10:00 07/28/19 10:05 Asa - PO Not Given DAILY [facility] Atorvastatin Calcium 80 mg 07/25/19 22:00 07/27/19 21:11 Lipitor - PO Not Given HS [facility] Budesonide/Formoterol Fumarate 2 puff 07/25/19 10:00 07/28/19 10:14 Symbicort 160/4.5mcg - IH Not Given BID [facility] Chlorhexidine Gluconate 1 applic 07/25/19 22:00 07/27/19 21:15 Hibiclens For Decolonization - TP 1 applic HS [facility] Administration Donepezil HCl 10 mg 07/25/19 22:00 07/27/19 21:10 Aricept - PO Not Given HS [facility] Gemfibrozil 600 mg 07/25/19 16:30 07/28/19 06:30 Lopid - PO Not Given BIDAC [facility] Heparin Sodium (Porcine) 5,000 unit 07/25/19 10:00 07/28/19 10:06 Heparin - SQ 5,000 unit BID [facility] Administration Ceftriaxone Sodium 1 gm/ 50 mls @ 100 mls/hr 07/25/19 10:00 07/28/19 10:12 Dextrose IVPB 100 mls/hr DAILY [facility] Administration Protocol Metronidazole 500 mg in 100 mls @ 100 mls/hr 07/25/19 10:00 07/28/19 03:24 Flagyl 500mg Premixed Ivpb - IVPB 100 mls/hr Q8H-IV [facility] Administration Amino Acids 1,000 mls @ 42 mls/hr 07/27/19 16:00 07/27/19 18:25 Clinimix - IV 42 mls/hr Q24H [facility] Administration Levetiracetam 750 mg 07/25/19 10:00 07/28/19 10:19 Keppra Injection - IVPB 750 mg BID [facility] Administration Memantine 5 mg 07/25/19 10:00 07/28/19 10:07 Namenda - PO Not Given BID [facility] Methylprednisolone Sodium Succinate 40 mg 07/25/19 12:30 07/28/19 10:07 Solu-Medrol - IVPUSH 40 mg Q8H-IV [facility] Administration Mupirocin 1 applic 07/25/19 10:00 07/28/19 10:06 Bactroban Ointment (For Decolonization) - NS 07/30/19 09:59 1 applic BID [facility] Administration Pantoprazole Sodium 40 mg 07/26/19 10:00 07/28/19 10:07 Protonix Iv IVPUSH 40 mg DAILY [facility] Administration Laboratory Results - last 24 hr 07/28/19 07/28/19 06:00 06:00 WBC 10.3 H RBC 3.71 Hgb 12.0 Hct 35.5 MCV 95.8 MCH 32.3 MCHC 33.7 RDW 14.7 Plt Count 266 MPV 9.5 Absolute Neuts (auto) 8.0 Neutrophils % 77.4 Lymphocytes % 13.5 D Monocytes % 8.8 D Eosinophils % 0.1 D Basophils % 0.2 Nucleated RBC % 0 Sodium 139 Potassium 3.9 Chloride 109 H Carbon Dioxide 23 Anion Gap 7 L BUN 10.3 Creatinine 0.7 Est GFR (CKD-EPI)AfAm 99.62 Est GFR (CKD-EPI)NonAf 85.95 Random Glucose 237 H Calcium 9.0 Phosphorus 2.1 L Magnesium 2.3 Total Bilirubin 0.2 AST 19 ALT 30 Alkaline Phosphatase 86 Total Protein 6.2 L Albumin 2.8 L S1 S2 RRR Lungs decreased, ronchi+ Abd-soft, NT edema+ PLAN IV antibiotics for aspiration pneumonia keppra iv for possible seizures MRI brain negative for CVA nebs chest PT continue with meds DNI spoke with swallow therpaist-- unable to attempt swallowing as she can not tolerate off ventimask on clinimix now Problem List - Problems (1) Toxic metabolic encephalopathy Code(s): G92 - TOXIC ENCEPHALOPATHY (2) Altered mental status Code(s): R41.82 - ALTERED MENTAL STATUS, UNSPECIFIED Qualifiers: Altered mental status type: unspecified Qualified Code(s): R41.82 - Altered mental status, unspecified (3) Aspiration pneumonia Code(s): J69.0 - PNEUMONITIS DUE TO INHALATION OF FOOD AND VOMIT (4) Acute respiratory failure Code(s): J96.00 - ACUTE RESPIRATORY FAILURE, UNSP W HYPOXIA OR HYPERCAPNIA (5) Functional quadriplegia Code(s): R53.2 - FUNCTIONAL QUADRIPLEGIA
[2019-07-28 11:03] LABS: ANISOCYTOSIS 0; MACROCYTOSIS 0; PLATELET ESTIMATE NORMAL
--- NOTE | 2019-07-28 11:15 | PN ---
Physical Exam: SUBJECTIVE: Patient seen and examined. Per nusing aide at bedside, patient is more responsive today, smiling and looking at her. No acute events over night. Patient with O2 saturation at 99-100% on BiPAP at 50% FiO2. OBJECTIVE: Vital Signs Period Temp Pulse Resp BP Sys/Carr Pulse Ox Last 24 Hr 97.0 F-98.5 F 48-104 18-32 91-156/69-121 92-99 GENERAL: no acute distress, AAOx0 HEAD: Normal with no signs of trauma. ENT: dry mucous membranes. NECK: Trachea midline, full range of motion, supple. LUNGS: Scattered rhonchi, no accessory muscle use. No wheezing HEART: Regular rate and rhythm, S1, S2 without murmur, rub or gallop. ABDOMEN: Soft, nontender, nondistended, normoactive bowel sounds, no guarding, no rebound EXTREMITIES: 2+ pulses, warm NEUROLOGICAL: unable to assess Laboratory Results - last 24 hr 07/28/19 07/28/19 06:00 06:00 WBC 10.3 H RBC 3.71 Hgb 12.0 Hct 35.5 MCV 95.8 MCH 32.3 MCHC 33.7 RDW 14.7 Plt Count 266 MPV 9.5 Absolute Neuts (auto) 8.0 Neutrophils % 77.4 Lymphocytes % 13.5 D Monocytes % 8.8 D Eosinophils % 0.1 D Basophils % 0.2 Nucleated RBC % 0 Sodium 139 Potassium 3.9 Chloride 109 H Carbon Dioxide 23 Anion Gap 7 L BUN 10.3 Creatinine 0.7 Est GFR (CKD-EPI)AfAm 99.62 Est GFR (CKD-EPI)NonAf 85.95 Random Glucose 237 H Calcium 9.0 Phosphorus 2.1 L Magnesium 2.3 Total Bilirubin 0.2 AST 19 ALT 30 Alkaline Phosphatase 86 Total Protein 6.2 L Albumin 2.8 L Active Medications Generic Name Dose Route Start Last Admin Trade Name Freq PRN Reason Stop Dose Admin Acetylcysteine 1,000 mg 07/25/19 16:00 07/27/19 20:37 Mucomyst 20 Oral / Inh Use Only* NEB 1,000 mg RQID [facility]FR[facility] Administration Albuterol Sulfate 1 amp 07/27/19 16:00 07/27/19 20:37 Ventolin 0.083% Nebulizer Soln - NEB 1 amp RQID [facility] Administration Aspirin 81 mg 07/25/19 10:00 07/28/19 10:05 Asa - PO Not Given DAILY [facility] Atorvastatin Calcium 80 mg 07/25/19 22:00 07/27/19 21:11 Lipitor - PO Not Given HS [facility]ILFR[facility] Budesonide/Formoterol Fumarate 2 puff 07/25/19 10:00 07/28/19 10:14 Symbicort 160/4.5mcg - IH Not Given BID [facility] Chlorhexidine Gluconate 1 applic 07/25/19 22:00 07/27/19 21:15 Hibiclens For Decolonization - TP 1 applic HS [facility] Administration Donepezil HCl 10 mg 07/25/19 22:00 07/27/19 21:10 Aricept - PO Not Given HS WILFRED Gemfibrozil 600 mg 07/25/19 16:30 07/28/19 06:30 Lopid - PO Not Given BIDAC [facility]ILFR[facility] Heparin Sodium (Porcine) 5,000 unit 07/25/19 10:00 07/28/19 10:06 Heparin - SQ 5,000 unit BID [facility] Administration Ceftriaxone Sodium 1 gm/ 50 mls @ 100 mls/hr 07/25/19 10:00 07/28/19 10:12 Dextrose IVPB 100 mls/hr DAILY [facility] Administration Protocol Metronidazole 500 mg in 100 mls @ 100 mls/hr 07/25/19 10:00 07/28/19 03:24 Flagyl 500mg Premixed Ivpb - IVPB 100 mls/hr Q8H-IV [facility] Administration Amino Acids 1,000 mls @ 42 mls/hr 07/27/19 16:00 07/27/19 18:25 Clinimix - IV 42 mls/hr Q24H [facility] Administration Insulin Aspart 1 vial 07/28/19 11:00 Novolog Vial Sliding Scale - SQ TIDAC [facility] Protocol Levetiracetam 750 mg 07/25/19 10:00 07/28/19 10:19 Keppra Injection - IVPB 750 mg BID [facility] Administration Memantine 5 mg 07/25/19 10:00 07/28/19 10:07 Namenda - PO Not Given BID [facility] Methylprednisolone Sodium Succinate 40 mg 07/29/19 10:00 Solu-Medrol - IVPUSH DAILY [facility] Mupirocin 1 applic 07/25/19 10:00 07/28/19 10:06 Bactroban Ointment (For Decolonization) - NS 07/30/19 09:59 1 applic BID [facility] Administration Pantoprazole Sodium 40 mg 07/26/19 10:00 07/28/19 10:07 Protonix Iv IVPUSH 40 mg DAILY [facility] Administration ASSESSMENT/PLAN: 73 y/o/w with PMH significant for HTN, Alzheimer's dementia, COPD, Colon CA who presented to the ER from [place] with complaints of AMS, worsening productive cough for the past 2 days. She was admitted on 07/22 for management of suspected PNA. On 07/25, ICU team was contacted by MAXWELL Puckett after the patient was found to be unresponsive to verbal or tactile stimulus with O2 sat 82% on NRB. In ICU patient was responsive to tactile stimulus. #Neuro - Hx of Alzheimers, impaired cognition at baseline, continuing Home med Donepezil, Memantine - Brain MRI 07/24 - no hemorrhagic or ischemic changes - Head CT to r/o stroke 07/22 w/o acute pathology - On Keppra 750mg IV BID - Donepezil 10mg PO HS - Aspiration risk #CV - Troponin negative - On Lipitor 80mg - Hx of HTN: Primary care team holding PO HTN meds #Pulm - Pt is DNI - Started on venti-mask today, SpO2 in the mid 90s. Monitor. Can de-escalate to nasal canula or start BiPAP again as appropriate. - Solumedrol 40mg IV daily - Ventolin, Symbicort - Mucomyst RQID - Chest PT - Hold IVF - Chest CT 07/28: increased central markings, similar to previous CXR #ID - Continue rocephin, flagyl. Day#6. Complete 7 days of coverage. - Lactic acid normalized - WBC at 10.3, afebrile. monitor - Urine cx 07/22: no growth - Urine legionella antigen ordered #Heme - Trend CBC, H&H stable #GI - On Gemfibrozil - NPO, aspiration risk - Plan for NG and tube feeds vs Clinamix pending oxygen intervention requirements #FEN - NPO - Monitor and replete lytes as needed #Prophylaxis - Heparin 5000 SQ - Protonix #Dispo - Stable for transfer to med surg Visit type - Emergency Visit Emergency Visit: Yes ED Registration Date: 07/22/19 Care time: The patient presented to the Emergency Department on the above date and was hospitalized for further evaluation of their emergent condition. - New Patient This patient is new to me today: No - Critical Care Critical Care patient: Yes Total Critical Care Time (in minutes): 36 Critical Care Statement: The care of this patient involved high complexity decision making to prevent further life threatening deterioration of the patient 's condition and/or to evaluate & treat vital organ system(s) failure or risk of failure. ATTENDING PHYSICIAN STATEMENT I saw and evaluated the patient. I reviewed the resident's note and discussed the case with the resident. I agree with the resident's findings and plan as documented. SUBJECTIVE: OBJECTIVE: ASSESSMENT AND PLAN:
--- NOTE | 2019-07-28 11:23 | PN ---
Teaching Attending Note Name of Resident: Hayley Christianson ATTENDING PHYSICIAN STATEMENT I saw and evaluated the patient. I reviewed the resident's note and discussed the case with the resident. I agree with the resident's findings and plan as documented. SUBJECTIVE: Pt seen and examined in the ICU. Remains on BiPAP 50% FiO2, saturating well. Placed on nasal cannula. OBJECTIVE: Vital Signs Period Temp Pulse Resp BP Sys/Carr Pulse Ox Last 24 Hr 97.0 F-98.5 F 48-104 18-32 91-156/69-121 92-99 Intake & Output 07/25/19 07/26/19 07/27/19 07/28/19 23:59 23:59 23:59 23:59 Intake Total 452 466 0270 1727 Output Total 200 Balance 976 326 6742 1527 Weight 69.853 kg 70.806 kg Gen: mildly tachypneic at rest Heart: RRR Lung: decreased breath sounds at the bases Abd: soft, nontender Ext: + edema CBC, BMP 07/28/19 06:00 07/28/19 06:00 Active Medications Acetylcysteine (Mucomyst 20 Oral / Inh Use Only*) 1,000 mg NEB RQID [facility] [place] [place] Last Admin: 07/27/19 20:37 Dose: 1,000 mg Albuterol Sulfate (Ventolin 0.083% Nebulizer Soln -) 1 amp NEB RQID [facility] Last Admin: 07/27/19 20:37 Dose: 1 amp Aspirin (Asa -) 81 mg PO DAILY [facility] Last Admin: 07/28/19 10:05 Dose: Not Given Atorvastatin Calcium (Lipitor -) 80 mg PO [facility] Last Admin: 07/27/19 21:11 Dose: Not Given Budesonide/Formoterol Fumarate (Symbicort 160/4.5mcg -) 2 puff IH BID [facility] [place] Last Admin: 07/28/19 10:14 Dose: Not Given Chlorhexidine Gluconate (Hibiclens For Decolonization -) 1 applic TP HS [facility] Last Admin: 07/27/19 21:15 Dose: 1 applic Donepezil HCl (Aricept -) 10 mg PO HS [facility] [place] Last Admin: 07/27/19 21:10 Dose: Not Given Gemfibrozil (Lopid -) 600 mg PO BIDAC [facility] [place] Last Admin: 07/28/19 06:30 Dose: Not Given Heparin Sodium (Porcine) (Heparin -) 5,000 unit SQ BID [facility] [place] Last Admin: 07/28/19 10:06 Dose: 5,000 unit Ceftriaxone Sodium 1 gm/ (Dextrose) 50 mls @ 100 mls/hr IVPB DAILY [facility]; Protocol Last Admin: 07/28/19 10:12 Dose: 100 mls/hr Metronidazole (Flagyl 500mg Premixed Ivpb -) 500 mg in 100 mls @ 100 mls/hr IVPB Q8H-IV [facility] [place] Last Admin: 07/28/19 03:24 Dose: 100 mls/hr Amino Acids (Clinimix -) 1,000 mls @ 42 mls/hr IV Q24H [facility] [place] Last Admin: 07/27/19 18:25 Dose: 42 mls/hr Insulin Aspart (Novolog Vial Sliding Scale -) 1 vial SQ TIDAC [facility] [place]; Protocol Levetiracetam (Keppra Injection -) 750 mg IVPB BID [facility] Last Admin: 07/28/19 10:19 Dose: 750 mg Memantine (Namenda -) 5 mg PO BID [facility] [place] Last Admin: 07/28/19 10:07 Dose: Not Given Methylprednisolone Sodium Succinate (Solu-Medrol -) 40 mg IVPUSH DAILY [facility] [place] Mupirocin (Bactroban Ointment (For Decolonization) -) 1 applic NS BID [facility] Stop: 07/30/19 09:59 Last Admin: 07/28/19 10:06 Dose: 1 applic Pantoprazole Sodium (Protonix Iv) 40 mg IVPUSH DAILY [facility] [place] Last Admin: 07/28/19 10:07 Dose: 40 mg ASSESSMENT AND PLAN: Acute Hypoxic Respiratory Failure Pneumonia likely Aspiration Atelectasis Acute COPD Exacerbation h/o Colon Ca HTN Hyperlipidemia Alzheimer's Dementia - continue antibiotics - chest PT - mucolytics - taper O2 to keep SpO2 >90% - BiPAP as needed to assist in work of breathing - aspiration precautions - taper off medrol - inhaled bronchodilators - can monitor on floor
[2019-07-28] MEDS: INSULIN SLIDING SCALE (NOVOLOG) 1 VIAL SQ SCH ×2 (12:27→17:31)
[2019-07-28] MEDS ORDERED: ALBUTEROL SO4 0.083% IH SOL 2.5 MG/3 ML VIAL.NEB. NEB ONE (14:01)
--- NOTE | 2019-07-28 14:06 | PN ---
Progress Note (short form) - Note Progress Note: on ventimask still npo more alert less cough per aide at bedside Vital Signs Period Temp Pulse Resp BP Sys/Carr Pulse Ox Last 24 Hr 97.0 F-97.6 F 48-81 21-32 91-151/69-121 92-99 cor-rrr lungs bilateral rhonchi abd soft,nt ext no edema CBC, BMP 07/28/19 06:00 07/28/19 06:00 Microbiology 07/22/19 13:43 Urine - Urine - Catheterized Urine Culture - Final NO GROWTH OBTAINED Current Medications Acetylcysteine (Mucomyst 20 Oral / Inh Use Only*) 1,000 mg NEB RQID [facility] Last Admin: 07/28/19 11:50 Dose: 1,000 mg Albuterol Sulfate (Ventolin 0.083% Nebulizer Soln -) 1 amp NEB RQID [facility] Last Admin: 07/28/19 11:50 Dose: 1 amp Albuterol Sulfate (Ventolin 0.083% Nebulizer Soln -) 1 amp NEB ONCE ONE Stop: 07/28/19 14:02 Aspirin (Asa -) 81 mg PO DAILY [facility] Last Admin: 07/28/19 10:05 Dose: Not Given Atorvastatin Calcium (Lipitor -) 80 mg PO HS [facility] Last Admin: 07/27/19 21:11 Dose: Not Given Budesonide/Formoterol Fumarate (Symbicort 160/4.5mcg -) 2 puff IH BID [facility] Last Admin: 07/28/19 10:14 Dose: Not Given Chlorhexidine Gluconate (Hibiclens For Decolonization -) 1 applic TP HS [facility] Last Admin: 07/27/19 21:15 Dose: 1 applic Donepezil HCl (Aricept -) 10 mg PO HS [facility] Last Admin: 07/27/19 21:10 Dose: Not Given Gemfibrozil (Lopid -) 600 mg PO BIDAC [facility] Last Admin: 07/28/19 06:30 Dose: Not Given Heparin Sodium (Porcine) (Heparin -) 5,000 unit SQ BID [facility] Last Admin: 07/28/19 10:06 Dose: 5,000 unit Ceftriaxone Sodium 1 gm/ (Dextrose) 50 mls @ 100 mls/hr IVPB DAILY [facility]; Protocol Last Admin: 07/28/19 10:12 Dose: 100 mls/hr Metronidazole (Flagyl 500mg Premixed Ivpb -) 500 mg in 100 mls @ 100 mls/hr IVPB Q8H-IV [facility] Last Admin: 07/28/19 12:37 Dose: 100 mls/hr Amino Acids (Clinimix -) 1,000 mls @ 42 mls/hr IV Q24H [facility] Last Admin: 07/27/19 18:25 Dose: 42 mls/hr Insulin Aspart (Novolog Vial Sliding Scale -) 1 vial SQ TIDAC [facility]; Protocol Last Admin: 07/28/19 12:27 Dose: 4 units Levetiracetam (Keppra Injection -) 750 mg IVPB BID [facility] Last Admin: 07/28/19 10:19 Dose: 750 mg Memantine (Namenda -) 5 mg PO BID [facility] Last Admin: 07/28/19 10:07 Dose: Not Given Methylprednisolone Sodium Succinate (Solu-Medrol -) 40 mg IVPUSH DAILY [facility] Mupirocin (Bactroban Ointment (For Decolonization) -) 1 applic NS BID [facility] Stop: 07/30/19 09:59 Last Admin: 07/28/19 10:06 Dose: 1 applic Pantoprazole Sodium (Protonix Iv) 40 mg IVPUSH DAILY [facility] Last Admin: 07/28/19 10:07 Dose: 40 mg a/p aspiration pneumonia- day #6 rocephin/flagyl improved would complete 7 days dementia Problem List - Problems (1) Altered mental status Code(s): R41.82 - ALTERED MENTAL STATUS, UNSPECIFIED Qualifiers: Altered mental status type: unspecified Qualified Code(s): R41.82 - Altered mental status, unspecified (2) Aspiration pneumonia Code(s): J69.0 - PNEUMONITIS DUE TO INHALATION OF FOOD AND VOMIT
--- NOTE | 2019-07-28 16:00 | EKG ---
Test Reason : Blood Pressure : / mmHG Vent. Rate : 106 BPM Atrial Rate : 106 BPM P-R Int : 114 ms QRS Dur : 064 ms QT Int : 298 ms P-R-T Axes : 072 072 219 degrees QTc Int : 395 ms POOR DATA QUALITY, INTERPRETATION MAY BE ADVERSELY AFFECTED SINUS TACHYCARDIA WITH OCCASIONAL PREMATURE VENTRICULAR COMPLEXES ABNORMAL ECG WHEN COMPARED WITH ECG OF 22-JUL-2019 13:18, PREMATURE VENTRICULAR COMPLEXES ARE NOW PRESENT T WAVE INVERSION NOW EVIDENT IN INFERIOR LEADS Confirmed by PAUL SOLORZANO, MARIFER ([id number]) on 07/28/2019 3:56:41 PM Referred By: Confirmed By:MARIFER MILLER MD
[2019-07-28] MEDS: AMINO ACIDS 4.25%/D5W 1,000 ML IV SCH (20:23)
[2019-07-28] MEDS ORDERED: MUPIROCIN 2% TOPICAL OINTMENT FOR DECOLONIZATION NS SCH (22:00)
[2019-07-28] MEDS ORDERED: CHLORHEXIDINE GLUCONATE 4% CLEANSER FOR DECOLONIZATION TP SCH (22:00)
[2019-07-28] MEDS: ATORVASTATIN CA 80 MG TABLET (FP) PO SCH (22:47)
[2019-07-28] MEDS: DONEPEZIL HCL 10 MG TABLET (FP) PO SCH (22:47)
[2019-07-29] MEDS: BUDESONIDE/FORMETEROL FUMARATE 160/4.5 mcg INHALER IH SCH ×3 (00:15→22:25)
[2019-07-29] MEDS: GEMFIBROZIL 600 MG TABLET (FP) PO SCH ×2 (06:32→17:29)
[2019-07-29] MEDS: INSULIN SLIDING SCALE (NOVOLOG) 1 VIAL SQ SCH ×3 (06:32→17:37)
[2019-07-29] MEDS: ALBUTEROL SO4 0.083% IH SOL 2.5 MG/3 ML VIAL.NEB. NEB SCH ×4 (08:35→20:36)
[2019-07-29] MEDS: ACETYLCYSTEINE 20% 200MG/ML 4 ML VIAL *FOR ORAL / INH USE ONLY NEB SCH ×4 (08:35→20:36)
[2019-07-29 08:40] LABS: HEMATOCRIT 38.7 % (32.4-45.2); HEMOGLOBIN 13.1 GM/dL (10.7-15.3); MCH 31.7 pg (25.7-33.7); MCHC 33.7 g/dl (32.0-36.0); MEAN CELL VOLUME 94.1 fl (80-96); MEAN PLT VOLUME 9.1 fl (7.5-11.1); PLATELET COUNT 277 K/MM3 (134-434); RBC 4.11 M/mm3 (3.60-5.2); RDW 14.5 % (11.6-15.6); WHITE BLOOD COUNT 10.5 K/mm3 (4.0-10.0)
[2019-07-29 09:19] LABS: ALBUMIN 2.8 g/dl (3.4-5.0); BILIRUBIN,TOTAL 0.3 mg/dL (0.2-1); BLOOD UREA NITROGEN 11.3 mg/dL (7-18); CALCIUM 9.1 mg/dL (8.5-10.1); CREATININE 0.5 mg/dL (0.55-1.3); MAGNESIUM 2.1 mg/dL (1.8-2.4); PHOSPHOROUS 1.8 mg/dL (2.5-4.9); POTASSIUM 3.2 mmol/L (3.5-5.1); TOT PROT 6.2 g/dl (6.4-8.2)
[2019-07-29] MEDS: ASPIRIN 81 MG CHEWABLE TABLETS PO SCH (09:27)
[2019-07-29] MEDS: MEMANTINE HCL 5 MG TABLET (UD) PO SCH ×2 (09:28→22:25)
[2019-07-29] MEDS ORDERED: cefTRIAXone SODIUM 1 GM VIAL ONE (09:29)
[2019-07-29] MEDS ORDERED: DEXTROSE 5%-WATER - 50 ML IVPB ONE (09:29)
[2019-07-29] MEDS: HEPARIN NA (PORCINE) 5,000 UNITS/ML 1ML VIAL SQ SCH ×2 (09:33→21:30)
[2019-07-29] MEDS: methylPREDNISolone NA SUCC 40 MG/1 ML VIAL IVPUSH SCH (09:34)
[2019-07-29] MEDS: PANTOPRAZOLE SODIUM 40 MG VIAL IVPUSH SCH (09:34)
[2019-07-29] MEDS ORDERED: methylPREDNISolone NA SUCC 40 MG/1 ML VIAL IVPUSH SCH (10:00)
--- NOTE | 2019-07-29 10:08 | PN ---
Progress Note, Physician History of Present Illness: PULMONARY ALERT,NON-VERBAL,-RESP DISTRESS - Current Medication List Current Medications: Active Medications Acetylcysteine (Mucomyst 20 Oral / Inh Use Only*) 1,000 mg NEB RQID [facility] Last Admin: 07/29/19 08:35 Dose: 1,000 mg Albuterol Sulfate (Ventolin 0.083% Nebulizer Soln -) 1 amp NEB RQID [facility] Last Admin: 07/29/19 08:35 Dose: 1 amp Aspirin (Asa -) 81 mg PO DAILY [facility] Last Admin: 07/29/19 09:27 Dose: Not Given Atorvastatin Calcium (Lipitor -) 80 mg PO HS [facility] Last Admin: 07/28/19 22:47 Dose: Not Given Budesonide/Formoterol Fumarate (Symbicort 160/4.5mcg -) 2 puff IH BID [facility] Last Admin: 07/29/19 09:28 Dose: Not Given Donepezil HCl (Aricept -) 10 mg PO HS [facility] Last Admin: 07/28/19 22:47 Dose: Not Given Gemfibrozil (Lopid -) 600 mg PO BIDAC [facility] Last Admin: 07/29/19 06:32 Dose: Not Given Heparin Sodium (Porcine) (Heparin -) 5,000 unit SQ BID [facility] Last Admin: 07/29/19 09:33 Dose: 5,000 unit Amino Acids (Clinimix -) 1,000 mls @ 42 mls/hr IV Q24H [facility] Ceftriaxone Sodium 1 gm/ (Dextrose) 50 mls @ 100 mls/hr IVPB DAILY [facility]; Protocol Metronidazole (Flagyl 500mg Premixed Ivpb -) 500 mg in 100 mls @ 100 mls/hr IVPB Q8H-IV [facility] Last Admin: 07/29/19 09:33 Dose: 100 mls/hr Insulin Aspart (Novolog Vial Sliding Scale -) 1 vial SQ TIDAC [facility]; Protocol Last Admin: 07/29/19 06:32 Dose: Not Given Levetiracetam (Keppra Injection -) 750 mg IVPB BID [facility] Last Admin: 07/28/19 21:55 Dose: 750 mg Memantine (Namenda -) 5 mg PO BID [facility] Last Admin: 07/29/19 09:28 Dose: Not Given Methylprednisolone Sodium Succinate (Solu-Medrol -) 40 mg IVPUSH DAILY [facility] Last Admin: 07/29/19 09:34 Dose: 40 mg Pantoprazole Sodium (Protonix Iv) 40 mg IVPUSH DAILY [facility] Last Admin: 07/29/19 09:34 Dose: 40 mg - Objective Vital Signs: Vital Signs Temperature 998.4 F H 07/29/19 09:00 Pulse Rate 69 07/29/19 09:00 Respiratory Rate 22 H 07/29/19 09:00 Blood Pressure 136/61 07/29/19 09:00 O2 Sat by Pulse Oximetry (%) 98 07/28/19 22:00 Constitutional: Yes: Well Nourished, Calm Eyes: Yes: WNL HENT: Yes: WNL Neck: Yes: WNL Cardiovascular: Yes: Regular Rate and Rhythm, S1, S2 Respiratory: Yes: Diminished (poor inspiratory effort) Gastrointestinal: Yes: Normal Bowel Sounds, Soft Extremities: Yes: WNL Edema: Yes Labs: CBC, BMP 07/29/19 08:10 07/29/19 08:10 Problem List - Problems (1) COPD exacerbation Code(s): J44.1 - CHRONIC OBSTRUCTIVE PULMONARY DISEASE W (ACUTE) EXACERBATION (2) Acute respiratory failure Code(s): J96.00 - ACUTE RESPIRATORY FAILURE, UNSP W HYPOXIA OR HYPERCAPNIA (3) Altered mental status Code(s): R41.82 - ALTERED MENTAL STATUS, UNSPECIFIED Qualifiers: Altered mental status type: unspecified Qualified Code(s): R41.82 - Altered mental status, unspecified (4) Aspiration pneumonia Code(s): J69.0 - PNEUMONITIS DUE TO INHALATION OF FOOD AND VOMIT (5) Functional quadriplegia Code(s): R53.2 - FUNCTIONAL QUADRIPLEGIA (6) Toxic metabolic encephalopathy Code(s): G92 - TOXIC ENCEPHALOPATHY Assessment/Plan ASSESSMENT AND PLAN: Acute Hypoxic Respiratory Failure Pneumonia likely Aspiration Atelectasis Acute COPD Exacerbation improving h/o Colon Ca HTN Hyperlipidemia Alzheimer's Dementia - antibiotics - chest PT - mucolytics - taper O2 to keep SpO2 >90% - BiPAP as needed to assist in work of breathing - aspiration precautions - taper off medrol - inhaled bronchodilators DR PORRAS
[2019-07-29] MEDS: CEFTRIAXONE 1 GM in DEXTROSE 5%-WATER - 50 ML IVPB SCH (11:01)
[2019-07-29] MEDS ORDERED: KCL 10 MEQ IVPB 10 MEQ/100 ML INFUS.BAG IVPB SCH (11:45)
[2019-07-29] MEDS: levETIRAcetam 500 MG/5 ML INJECTION VIAL IVPB SCH ×2 (11:58→21:22)
[2019-07-29] MEDS: AMINO ACIDS 4.25%/D5W 1,000 ML IV SCH (17:34)
--- NOTE | 2019-07-29 18:43 | PN ---
Progress Note (short form) - Note Progress Note: family at bedside states that she was responding to him drowsy at present on ventimask Vital Signs - 24 hr 07/28/19 07/28/19 07/28/19 20:44 21:00 22:00 Temperature Pulse Rate 75 Respiratory 22 H Rate Blood Pressure 149/67 O2 Sat by Pulse 98 98 Oximetry (%) 07/29/19 07/29/19 07/29/19 01:51 06:00 09:00 Temperature 97.6 F 98.3 F 98.4 F Pulse Rate 66 73 69 Respiratory 22 H 22 H 22 H Rate Blood Pressure 166/88 174/84 H 136/61 O2 Sat by Pulse 98 Oximetry (%) 07/29/19 07/29/19 07/29/19 12:00 13:00 14:48 Temperature 99.1 F Pulse Rate 100 H Respiratory 35 H Rate Blood Pressure 149/56 L O2 Sat by Pulse 98 97 Oximetry (%) Current Medications Generic Name Dose Route Start Last Admin Trade Name Freq PRN Reason Stop Dose Admin Acetylcysteine 1,000 mg 07/29/19 08:00 07/29/19 16:30 Mucomyst 20 Oral / Inh Use Only* NEB 1,000 mg RQID WILFRED Administration Albuterol Sulfate 1 amp 07/29/19 08:00 07/29/19 16:30 Ventolin 0.083% Nebulizer Soln - NEB 1 amp RQID WILFRED Administration Aspirin 81 mg 07/29/19 10:00 07/29/19 09:27 Asa - PO Not Given DAILY W[facility]ED Atorvastatin Calcium 80 mg 07/28/19 22:00 07/28/19 22:47 Lipitor - PO Not Given HS WILFRED Budesonide/Formoterol Fumarate 2 puff 07/28/19 22:00 07/29/19 09:28 Symbicort 160/4.5mcg - IH Not Given BID [facility]ED Donepezil HCl 10 mg 07/28/19 22:00 07/28/19 22:47 Aricept - PO Not Given HS WIL[facility]ED Gemfibrozil 600 mg 07/29/19 07:00 07/29/19 17:29 Lopid - PO Not Given BIDAC [facility] Heparin Sodium (Porcine) 5,000 unit 07/28/19 22:00 07/29/19 09:33 Heparin - SQ 5,000 unit BID [facility] Administration Amino Acids 1,000 mls @ 42 mls/hr 07/29/19 16:00 07/29/19 17:34 Clinimix - IV 42 mls/hr Q24H [facility] Administration Ceftriaxone Sodium 1 gm/ 50 mls @ 100 mls/hr 07/29/19 10:00 07/29/19 11:01 Dextrose IVPB 100 mls/hr DAILY [facility] Administration Protocol Metronidazole 500 mg in 100 mls @ 100 mls/hr 07/29/19 02:00 07/29/19 17:34 Flagyl 500mg Premixed Ivpb - IVPB 100 mls/hr Q8H-IV [facility] Administration Potassium Phosphate 15 mm/ 255 mls @ 62.5 mls/hr 07/29/19 18:40 Dextrose IVPB 07/29/19 22:44 ONCE ONE Insulin Aspart 1 vial 07/29/19 07:00 07/29/19 17:37 Novolog Vial Sliding Scale - SQ 4 units TIDAC [facility] Administration Protocol Levetiracetam 750 mg 07/28/19 22:00 07/29/19 11:58 Keppra Injection - IVPB 750 mg BID [facility] Administration Memantine 5 mg 07/28/19 22:00 07/29/19 09:28 Namenda - PO Not Given BID [facility] Methylprednisolone Sodium Succinate 40 mg 07/29/19 10:00 07/29/19 09:34 Solu-Medrol - IVPUSH 40 mg DAILY [facility] Administration Pantoprazole Sodium 40 mg 07/29/19 10:00 07/29/19 09:34 Protonix Iv IVPUSH 40 mg DAILY [facility] Administration Laboratory Results - last 24 hr 07/29/19 07/29/19 07/29/19 05:23 08:10 08:10 WBC 10.5 H RBC 4.11 Hgb 13.1 Hct 38.7 MCV 94.1 MCH 31.7 MCHC 33.7 RDW 14.5 Plt Count 277 MPV 9.1 Sodium 139 Potassium 3.2 L Chloride 102 Carbon Dioxide 27 Anion Gap 9 BUN 11.3 Creatinine 0.5 L Est GFR (CKD-EPI)AfAm 111.28 Est GFR (CKD-EPI)NonAf 96.02 POC Glucometer 122 Random Glucose 118 H Calcium 9.1 Phosphorus 1.8 L Magnesium 2.1 Total Bilirubin 0.3 AST 22 ALT 29 Alkaline Phosphatase 86 Total Protein 6.2 L Albumin 2.8 L 07/29/19 07/29/19 12:03 17:35 WBC RBC Hgb Hct MCV MCH MCHC RDW Plt Count MPV Sodium Potassium Chloride Carbon Dioxide Anion Gap BUN Creatinine Est GFR (CKD-EPI)AfAm Est GFR (CKD-EPI)NonAf POC Glucometer 172 224 Random Glucose Calcium Phosphorus Magnesium Total Bilirubin AST ALT Alkaline Phosphatase Total Protein Albumin S1 S2 RRR Lungs decreased, ronchi+ Abd-soft, NT edema+ PLAN IV antibiotics for aspiration pneumonia keppra iv for possible seizures MRI brain negative for CVA nebs chest PT continue with meds DNI spoke with swallow therpaist-- unable to attempt swallowing as she can not tolerate off ventimask on clinimix now BIPAP prn replace potassium Problem List - Problems (1) Toxic metabolic encephalopathy Code(s): G92 - TOXIC ENCEPHALOPATHY (2) Altered mental status Code(s): R41.82 - ALTERED MENTAL STATUS, UNSPECIFIED Qualifiers: Altered mental status type: unspecified Qualified Code(s): R41.82 - Altered mental status, unspecified (3) Aspiration pneumonia Code(s): J69.0 - PNEUMONITIS DUE TO INHALATION OF FOOD AND VOMIT (4) Acute respiratory failure Code(s): J96.00 - ACUTE RESPIRATORY FAILURE, UNSP W HYPOXIA OR HYPERCAPNIA (5) Functional quadriplegia Code(s): R53.2 - FUNCTIONAL QUADRIPLEGIA
[2019-07-29] MEDS ORDERED: POTASSIUM PHOSPHATE 15 MM in DEXTROSE 5%-WATER - 250 ML IVPB ONE (19:00)
[2019-07-29] MEDS: DONEPEZIL HCL 10 MG TABLET (FP) PO SCH (22:24)
[2019-07-29] MEDS: ATORVASTATIN CA 80 MG TABLET (FP) PO SCH (22:25)
[2019-07-30] MEDS: INSULIN SLIDING SCALE (NOVOLOG) 1 VIAL SQ SCH ×3 (06:02→18:30)
[2019-07-30] MEDS: GEMFIBROZIL 600 MG TABLET (FP) PO SCH ×2 (06:02→16:20)
[2019-07-30] MEDS: ACETYLCYSTEINE 20% 200MG/ML 4 ML VIAL *FOR ORAL / INH USE ONLY NEB SCH ×4 (07:45→20:55)
[2019-07-30] MEDS: ALBUTEROL SO4 0.083% IH SOL 2.5 MG/3 ML VIAL.NEB. NEB SCH ×4 (07:45→20:55)
[2019-07-30 08:43] LABS: BLOOD UREA NITROGEN 12.4 mg/dL (7-18); CALCIUM 8.6 mg/dL (8.5-10.1); CREATININE 0.5 mg/dL (0.55-1.3); MAGNESIUM 2.2 mg/dL (1.8-2.4); PHOSPHOROUS 3.2 mg/dL (2.5-4.9); POTASSIUM 3.3 mmol/L (3.5-5.1)
[2019-07-30] MEDS: levETIRAcetam 500 MG/5 ML INJECTION VIAL IVPB SCH ×2 (09:13→22:54)
[2019-07-30] MEDS: ASPIRIN 81 MG CHEWABLE TABLETS PO SCH (11:02)
[2019-07-30] MEDS: MEMANTINE HCL 5 MG TABLET (UD) PO SCH ×2 (11:02→21:03)
[2019-07-30] MEDS: BUDESONIDE/FORMETEROL FUMARATE 160/4.5 mcg INHALER IH SCH ×2 (11:03→21:03)
--- NOTE | 2019-07-30 11:03 | PN ---
Progress Note (short form) - Note Progress Note: PULMONARY VSS/Afebrile Eyes: Yes: WNL HENT: Yes: WNL Neck: Yes: WNL Cardiovascular: Yes: Regular Rate and Rhythm, S1, S2 Respiratory: Yes: Diminished (poor inspiratory effort) Gastrointestinal: Yes: Normal Bowel Sounds, Soft Extremities: Yes: WNL Edema: Yes Labs: reviewed ASSESSMENT AND PLAN: Acute Hypoxic Respiratory Failure Pneumonia likely Aspiration Atelectasis Acute COPD Exacerbation improving h/o Colon Ca HTN Hyperlipidemia Alzheimer's Dementia - antibiotics - chest PT - mucolytics - taper O2 to keep SpO2 >90% - BiPAP as needed to assist in work of breathing - aspiration precautions - taper off medrol - inhaled bronchodilators Erich FRIEDMAN MD
[2019-07-30] MEDS ORDERED: DEXTROSE 5%-WATER - 50 ML IVPB ONE (11:13)
[2019-07-30] MEDS ORDERED: cefTRIAXone SODIUM 1 GM VIAL ONE (11:13)
[2019-07-30] MEDS: CEFTRIAXONE 1 GM in DEXTROSE 5%-WATER - 50 ML IVPB SCH (11:21)
[2019-07-30] MEDS: HEPARIN NA (PORCINE) 5,000 UNITS/ML 1ML VIAL SQ SCH ×2 (11:21→22:54)
[2019-07-30] MEDS: PANTOPRAZOLE SODIUM 40 MG VIAL IVPUSH SCH (11:21)
[2019-07-30] MEDS: methylPREDNISolone NA SUCC 40 MG/1 ML VIAL IVPUSH SCH (11:21)
--- NOTE | 2019-07-30 11:59 | PN ---
Progress Note (short form) - Note Progress Note: had respiratory distress yesterday -- but was placed on BIPAP-- better now Now she is on ventimask Awake Vital Signs - 24 hr 07/29/19 07/29/19 07/29/19 12:00 13:00 14:48 Temperature 99.1 F Pulse Rate 100 H Respiratory 35 H Rate Blood Pressure 149/56 L O2 Sat by Pulse 98 97 Oximetry (%) 07/29/19 07/29/19 07/29/19 17:00 19:00 20:37 Temperature 98.6 F Pulse Rate 73 Respiratory 20 Rate Blood Pressure 121/68 O2 Sat by Pulse 99 99 Oximetry (%) 07/29/19 07/29/19 07/30/19 21:00 22:00 00:46 Temperature Pulse Rate Respiratory Rate Blood Pressure O2 Sat by Pulse 99 99 99 Oximetry (%) 07/30/19 07/30/19 07/30/19 01:00 05:00 08:25 Temperature 97.9 F 98.1 F Pulse Rate 97 H 87 Respiratory 20 20 Rate Blood Pressure 117/62 113/94 O2 Sat by Pulse 95 Oximetry (%) 07/30/19 09:00 Temperature 98.4 F Pulse Rate 75 Respiratory 22 H Rate Blood Pressure 133/72 O2 Sat by Pulse Oximetry (%) Current Medications Generic Name Dose Route Start Last Admin Trade Name Freq PRN Reason Stop Dose Admin Acetylcysteine 1,000 mg 07/29/19 08:00 07/30/19 07:45 Mucomyst 20 Oral / Inh Use Only* NEB 1,000 mg RQID WILFRED Administration Albuterol Sulfate 1 amp 07/29/19 08:00 07/30/19 07:45 Ventolin 0.083% Nebulizer Soln - NEB 1 amp RQID [facility]ED Administration Aspirin 81 mg 07/29/19 10:00 07/30/19 11:02 Asa - PO Not Given DAILY [facility] Atorvastatin Calcium 80 mg 07/28/19 22:00 07/29/19 22:25 Lipitor - PO Not Given HS [facility] Budesonide/Formoterol Fumarate 2 puff 07/28/19 22:00 07/30/19 11:03 Symbicort 160/4.5mcg - IH Not Given BID [facility] Donepezil HCl 10 mg 07/28/19 22:00 07/29/19 22:24 Aricept - PO Not Given HS [facility] Gemfibrozil 600 mg 07/29/19 07:00 07/30/19 06:02 Lopid - PO Not Given BIDAC [facility] Heparin Sodium (Porcine) 5,000 unit 07/28/19 22:00 07/30/19 11:21 Heparin - SQ 5,000 unit BID [facility] Administration Amino Acids 1,000 mls @ 42 mls/hr 07/29/19 16:00 07/29/19 17:34 Clinimix - IV 42 mls/hr Q24H [facility] Administration Ceftriaxone Sodium 1 gm/ 50 mls @ 100 mls/hr 07/29/19 10:00 07/30/19 11:21 Dextrose IVPB 100 mls/hr DAILY [facility] Administration Protocol Metronidazole 500 mg in 100 mls @ 100 mls/hr 07/29/19 02:00 07/30/19 10:04 Flagyl 500mg Premixed Ivpb - IVPB 100 mls/hr Q8H-IV [facility] Administration Insulin Aspart 1 vial 07/29/19 07:00 07/30/19 11:26 Novolog Vial Sliding Scale - SQ Not Given TIDAC [facility] Protocol Levetiracetam 750 mg 07/28/19 22:00 07/30/19 09:13 Keppra Injection - IVPB 750 mg BID [facility] Administration Memantine 5 mg 07/28/19 22:00 07/30/19 11:02 Namenda - PO Not Given BID [facility] Methylprednisolone Sodium Succinate 40 mg 07/29/19 10:00 07/30/19 11:21 Solu-Medrol - IVPUSH 40 mg DAILY [facility] Administration Pantoprazole Sodium 40 mg 07/29/19 10:00 07/30/19 11:21 Protonix Iv IVPUSH 40 mg DAILY [facility] Administration Laboratory Results - last 24 hr 07/29/19 07/29/19 07/30/19 12:03 17:35 05:35 Sodium Potassium Chloride Carbon Dioxide Anion Gap BUN Creatinine Est GFR (CKD-EPI)AfAm Est GFR (CKD-EPI)NonAf POC Glucometer 172 224 137 Random Glucose Calcium Phosphorus Magnesium 07/30/19 07/30/19 07:20 11:25 Sodium 139 Potassium 3.3 L Chloride 106 Carbon Dioxide 27 Anion Gap 6 L BUN 12.4 Creatinine 0.5 L Est GFR (CKD-EPI)AfAm 111.28 Est GFR (CKD-EPI)NonAf 96.02 POC Glucometer 140 Random Glucose 130 H Calcium 8.6 Phosphorus 3.2 Magnesium 2.2 S1 S2 RRR Lungs decreased, ronchi+ Abd-soft, NT edema+ PLAN IV antibiotics for aspiration pneumonia keppra iv for possible seizures MRI brain negative for CVA nebs chest PT continue with meds DNI swallow therapist follow up on clinimix now BIPAP prn replace potassium check labs in AM Problem List - Problems (1) Toxic metabolic encephalopathy Code(s): G92 - TOXIC ENCEPHALOPATHY (2) Altered mental status Code(s): R41.82 - ALTERED MENTAL STATUS, UNSPECIFIED Qualifiers: Altered mental status type: unspecified Qualified Code(s): R41.82 - Altered mental status, unspecified (3) Aspiration pneumonia Code(s): J69.0 - PNEUMONITIS DUE TO INHALATION OF FOOD AND VOMIT (4) Acute respiratory failure Code(s): J96.00 - ACUTE RESPIRATORY FAILURE, UNSP W HYPOXIA OR HYPERCAPNIA (5) Functional quadriplegia Code(s): R53.2 - FUNCTIONAL QUADRIPLEGIA
[2019-07-30 14:38] VITALS: BMI 30.4
[2019-07-30] MEDS: KCL 10 MEQ IVPB 10 MEQ/100 ML INFUS.BAG IVPB SCH ×2 (14:57→16:21)
--- NOTE | 2019-07-30 15:17 | PN ---
Progress Note, [employer] - Note Progress Note: Asked to reassess pt's swallowing. Improving but still with cough. Less verbal today. Voice mildly hoarse. RR increases with ventimask removed briefly. Selected Entries 07/30/19 07/30/19 07/30/19 01:00 05:00 09:00 Lunch Temperature 97.9 F 98.1 F 98.4 F 07/30/19 14:47 Lunch NPO Temperature 98.6 F Laboratory Tests 07/26/19 07/27/19 07/28/19 06:20 05:25 06:00 WBC 6.2 Cancelled 10.3 H 07/29/19 08:10 WBC 10.5 H CXR noted. Suggest MBS Friday to initiate PO trials with safety, if medically stable.
[2019-07-30] MEDS: AMINO ACIDS 4.25%/D5W 1,000 ML IV SCH (16:21)
[2019-07-30] MEDS: ATORVASTATIN CA 80 MG TABLET (FP) PO SCH (21:03)
[2019-07-30] MEDS: DONEPEZIL HCL 10 MG TABLET (FP) PO SCH (21:03)
[2019-07-31] MEDS: INSULIN SLIDING SCALE (NOVOLOG) 1 VIAL SQ SCH ×3 (07:07→17:19)
[2019-07-31] MEDS: GEMFIBROZIL 600 MG TABLET (FP) PO SCH ×2 (07:07→15:53)
[2019-07-31] MEDS: ACETYLCYSTEINE 20% 200MG/ML 4 ML VIAL *FOR ORAL / INH USE ONLY NEB SCH ×4 (08:25→21:30)
[2019-07-31] MEDS: ALBUTEROL SO4 0.083% IH SOL 2.5 MG/3 ML VIAL.NEB. NEB SCH ×4 (08:45→21:30)
[2019-07-31] MEDS ORDERED: cefTRIAXone SODIUM 1 GM VIAL ONE (09:54)
[2019-07-31] MEDS ORDERED: DEXTROSE 5%-WATER - 50 ML IVPB ONE (09:54)
[2019-07-31] MEDS: CEFTRIAXONE 1 GM in DEXTROSE 5%-WATER - 50 ML IVPB SCH (09:59)
[2019-07-31] MEDS: PANTOPRAZOLE SODIUM 40 MG VIAL IVPUSH SCH (10:00)
[2019-07-31] MEDS: methylPREDNISolone NA SUCC 40 MG/1 ML VIAL IVPUSH SCH (10:00)
[2019-07-31] MEDS: levETIRAcetam 500 MG/5 ML INJECTION VIAL IVPB SCH ×2 (10:00→22:56)
[2019-07-31] MEDS: HEPARIN NA (PORCINE) 5,000 UNITS/ML 1ML VIAL SQ SCH ×2 (10:04→22:56)
[2019-07-31] MEDS: ASPIRIN 81 MG CHEWABLE TABLETS PO SCH (10:04)
[2019-07-31] MEDS: MEMANTINE HCL 5 MG TABLET (UD) PO SCH ×2 (10:05→22:49)
[2019-07-31] MEDS: BUDESONIDE/FORMETEROL FUMARATE 160/4.5 mcg INHALER IH SCH ×2 (10:05→22:50)
--- NOTE | 2019-07-31 12:57 | PN ---
Progress Note (short form) - Note Progress Note: awake and no distress Vital Signs - 24 hr 07/30/19 07/30/19 07/30/19 14:47 18:05 21:00 Temperature 98.6 F 97.5 F L Pulse Rate 80 83 Respiratory 22 H 20 20 Rate Blood Pressure 119/61 130/73 O2 Sat by Pulse 99 Oximetry (%) 07/30/19 07/30/19 07/31/19 22:00 22:02 00:02 Temperature Pulse Rate 77 Respiratory 20 Rate Blood Pressure 114/65 O2 Sat by Pulse 99 97 97 Oximetry (%) 07/31/19 07/31/19 07/31/19 02:00 06:00 09:00 Temperature 98 F 98.4 F Pulse Rate 74 65 Respiratory 20 20 Rate Blood Pressure 135/74 132/74 O2 Sat by Pulse 99 Oximetry (%) 07/31/19 10:00 Temperature 98.1 F Pulse Rate 82 Respiratory 20 Rate Blood Pressure 139/57 L O2 Sat by Pulse 98 Oximetry (%) Current Medications Generic Name Dose Route Start Last Admin Trade Name Freq PRN Reason Stop Dose Admin Acetylcysteine 1,000 mg 07/29/19 08:00 07/31/19 11:30 Mucomyst 20 Oral / Inh Use Only* NEB 1,000 mg RQID [facility]ILFRED Administration Albuterol Sulfate 1 amp 07/29/19 08:00 07/31/19 11:30 Ventolin 0.083% Nebulizer Soln - NEB 1 amp RQID [facility] Administration Aspirin 81 mg 07/29/19 10:00 07/31/19 10:04 Asa - PO Not Given DAILY [facility] Atorvastatin Calcium 80 mg 07/28/19 22:00 07/30/19 21:03 Lipitor - PO Not Given HS [facility] Budesonide/Formoterol Fumarate 2 puff 07/28/19 22:00 07/31/19 10:05 Symbicort 160/4.5mcg - IH Not Given BID [facility] Donepezil HCl 10 mg 07/28/19 22:00 07/30/19 21:03 Aricept - PO Not Given HS [facility] Gemfibrozil 600 mg 07/29/19 07:00 07/31/19 07:07 Lopid - PO Not Given BIDAC [facility] Heparin Sodium (Porcine) 5,000 unit 07/28/19 22:00 07/31/19 10:04 Heparin - SQ 5,000 unit BID [facility] Administration Amino Acids 1,000 mls @ 42 mls/hr 07/29/19 16:00 07/30/19 16:21 Clinimix - IV 42 mls/hr Q24H [facility] Administration Ceftriaxone Sodium 1 gm/ 50 mls @ 100 mls/hr 07/29/19 10:00 07/31/19 09:59 Dextrose IVPB 100 mls/hr DAILY [facility] Administration Protocol Metronidazole 500 mg in 100 mls @ 100 mls/hr 07/29/19 02:00 07/31/19 10:05 Flagyl 500mg Premixed Ivpb - IVPB 100 mls/hr Q8H-IV [facility] Administration Insulin Aspart 1 vial 07/29/19 07:00 07/31/19 11:26 Novolog Vial Sliding Scale - SQ Not Given TIDAC [facility] Protocol Levetiracetam 750 mg 07/28/19 22:00 07/31/19 10:00 Keppra Injection - IVPB 750 mg BID [facility] Administration Memantine 5 mg 07/28/19 22:00 07/31/19 10:05 Namenda - PO Not Given BID [facility] Methylprednisolone Sodium Succinate 40 mg 07/29/19 10:00 07/31/19 10:00 Solu-Medrol - IVPUSH 40 mg DAILY [facility] Administration Pantoprazole Sodium 40 mg 07/29/19 10:00 07/31/19 10:00 Protonix Iv IVPUSH 40 mg DAILY [facility] Administration Laboratory Results - last 24 hr 07/30/19 07/31/19 07/31/19 17:58 07:05 11:19 POC Glucometer 232 129 146 S1 S2 RRR Lungs decreased, ronchi+ Abd-soft, NT edema+ PLAN IV antibiotics for aspiration pneumonia keppra iv for possible seizures MRI brain negative for CVA nebs chest PT continue with meds DNI swallow therapist follow up -->for MBS on Friday on clinimix now BIPAP prn Problem List - Problems (1) Toxic metabolic encephalopathy Code(s): G92 - TOXIC ENCEPHALOPATHY (2) Altered mental status Code(s): R41.82 - ALTERED MENTAL STATUS, UNSPECIFIED Qualifiers: Altered mental status type: unspecified Qualified Code(s): R41.82 - Altered mental status, unspecified (3) Aspiration pneumonia Code(s): J69.0 - PNEUMONITIS DUE TO INHALATION OF FOOD AND VOMIT (4) Acute respiratory failure Code(s): J96.00 - ACUTE RESPIRATORY FAILURE, UNSP W HYPOXIA OR HYPERCAPNIA (5) Functional quadriplegia Code(s): R53.2 - FUNCTIONAL QUADRIPLEGIA
--- NOTE | 2019-07-31 13:46 | PN ---
Progress Note (short form) - Note Progress Note: much more alert per at the bedside Vital Signs Period Temp Pulse Resp BP Sys/Carr Pulse Ox Last 24 Hr 97.5 F-98.6 F 65-83 20-22 114-139/57-74 97-99 cor-rrr lungs clear abd soft,nt ext no edema CBC, BMP 07/29/19 08:10 07/30/19 07:20 Microbiology 07/28/19 19:00 Urine - Urine Vaz Legionella Antigen - Final 07/28/19 19:00 Urine - Urine Vaz Streptococcus pneumoniae Antigen (M - Final 07/22/19 13:43 Urine - Urine - Catheterized Urine Culture - Final NO GROWTH OBTAINED Current Medications Acetylcysteine (Mucomyst 20 Oral / Inh Use Only*) 1,000 mg NEB RQID [facility] Last Admin: 07/31/19 11:30 Dose: 1,000 mg Albuterol Sulfate (Ventolin 0.083% Nebulizer Soln -) 1 amp NEB RQID [facility] Last Admin: 07/31/19 11:30 Dose: 1 amp Aspirin (Asa -) 81 mg PO DAILY [facility] Last Admin: 07/31/19 10:04 Dose: Not Given Atorvastatin Calcium (Lipitor -) 80 mg PO HS [facility] Last Admin: 07/30/19 21:03 Dose: Not Given Budesonide/Formoterol Fumarate (Symbicort 160/4.5mcg -) 2 puff IH BID [facility] Last Admin: 07/31/19 10:05 Dose: Not Given Donepezil HCl (Aricept -) 10 mg PO HS [facility] Last Admin: 07/30/19 21:03 Dose: Not Given Gemfibrozil (Lopid -) 600 mg PO BIDAC [facility] Last Admin: 07/31/19 07:07 Dose: Not Given Heparin Sodium (Porcine) (Heparin -) 5,000 unit SQ BID [facility] Last Admin: 07/31/19 10:04 Dose: 5,000 unit Amino Acids (Clinimix -) 1,000 mls @ 42 mls/hr IV Q24H [facility] Last Admin: 07/30/19 16:21 Dose: 42 mls/hr Ceftriaxone Sodium 1 gm/ (Dextrose) 50 mls @ 100 mls/hr IVPB DAILY [facility]; Protocol Last Admin: 07/31/19 09:59 Dose: 100 mls/hr Metronidazole (Flagyl 500mg Premixed Ivpb -) 500 mg in 100 mls @ 100 mls/hr IVPB Q8H-IV [facility] Last Admin: 07/31/19 10:05 Dose: 100 mls/hr Insulin Aspart (Novolog Vial Sliding Scale -) 1 vial SQ TIDAC [facility]; Protocol Last Admin: 07/31/19 11:26 Dose: Not Given Levetiracetam (Keppra Injection -) 750 mg IVPB BID [facility] Last Admin: 07/31/19 10:00 Dose: 750 mg Memantine (Namenda -) 5 mg PO BID [facility] Last Admin: 07/31/19 10:05 Dose: Not Given Methylprednisolone Sodium Succinate (Solu-Medrol -) 40 mg IVPUSH DAILY [facility] Last Admin: 07/31/19 10:00 Dose: 40 mg Pantoprazole Sodium (Protonix Iv) 40 mg IVPUSH DAILY [facility] Last Admin: 07/31/19 10:00 Dose: 40 mg a/p aspiration pneumonia- day #9 rocephin/flagyl improved d/c antibiotics and observe dementia please call back if needed Problem List - Problems (1) Altered mental status Code(s): R41.82 - ALTERED MENTAL STATUS, UNSPECIFIED Qualifiers: Altered mental status type: unspecified Qualified Code(s): R41.82 - Altered mental status, unspecified (2) Aspiration pneumonia Code(s): J69.0 - PNEUMONITIS DUE TO INHALATION OF FOOD AND VOMIT
[2019-07-31] MEDS: AMINO ACIDS 4.25%/D5W 1,000 ML IV SCH (15:53)
[2019-07-31] MEDS: ATORVASTATIN CA 80 MG TABLET (FP) PO SCH (22:49)
[2019-07-31] MEDS: DONEPEZIL HCL 10 MG TABLET (FP) PO SCH (22:49)
[2019-08-01] MEDS: GEMFIBROZIL 600 MG TABLET (FP) PO SCH ×2 (06:02→17:39)
[2019-08-01] MEDS: INSULIN SLIDING SCALE (NOVOLOG) 1 VIAL SQ SCH ×3 (06:23→17:51)
[2019-08-01] MEDS: ALBUTEROL SO4 0.083% IH SOL 2.5 MG/3 ML VIAL.NEB. NEB SCH ×4 (07:55→20:30)
[2019-08-01] MEDS: ACETYLCYSTEINE 20% 200MG/ML 4 ML VIAL *FOR ORAL / INH USE ONLY NEB SCH ×4 (07:55→20:30)
--- NOTE | 2019-08-01 08:35 | PN ---
Progress Note (short form) - Note Progress Note: awake and no distress antibiotics dc still NPO BP elevated Vital Signs - 24 hr 07/31/19 07/31/19 07/31/19 09:00 10:00 15:11 Temperature 98.1 F 98.7 F Pulse Rate 82 90 Respiratory 20 20 Rate Blood Pressure 139/57 L 138/86 O2 Sat by Pulse 99 98 Oximetry (%) 07/31/19 07/31/19 07/31/19 18:53 21:00 21:30 Temperature 98.2 F Pulse Rate 95 H Respiratory 20 20 Rate Blood Pressure 119/54 L O2 Sat by Pulse 98 98 Oximetry (%) 07/31/19 08/01/19 08/01/19 22:00 00:22 01:46 Temperature 97.7 F Pulse Rate 75 78 Respiratory 20 20 Rate Blood Pressure 133/70 146/70 O2 Sat by Pulse 97 98 Oximetry (%) 08/01/19 08/01/19 06:00 08:10 Temperature 97.5 F L Pulse Rate 72 Respiratory 20 Rate Blood Pressure 160/89 O2 Sat by Pulse 96 Oximetry (%) Current Medications Generic Name Dose Route Start Last Admin Trade Name Freq PRN Reason Stop Dose Admin Acetylcysteine 1,000 mg 07/29/19 08:00 08/01/19 07:55 Mucomyst 20 Oral / Inh Use Only* NEB 1,000 mg RQID [facility] Administration Albuterol Sulfate 1 amp 07/29/19 08:00 08/01/19 07:55 Ventolin 0.083% Nebulizer Soln - NEB 1 amp RQID [facility] Administration Aspirin 81 mg 07/29/19 10:00 07/31/19 10:04 Asa - PO Not Given DAILY [facility] Atorvastatin Calcium 80 mg 07/28/19 22:00 07/31/19 22:49 Lipitor - PO Not Given HS [facility] Budesonide/Formoterol Fumarate 2 puff 07/28/19 22:00 07/31/19 22:50 Symbicort 160/4.5mcg - IH Not Given BID [facility] Donepezil HCl 10 mg 07/28/19 22:00 07/31/19 22:49 Aricept - PO Not Given HS [facility] Gemfibrozil 600 mg 07/29/19 07:00 08/01/19 06:02 Lopid - PO Not Given BIDAC [facility] Heparin Sodium (Porcine) 5,000 unit 07/28/19 22:00 07/31/19 22:56 Heparin - SQ 5,000 unit BID [facility] Administration Amino Acids 1,000 mls @ 42 mls/hr 07/29/19 16:00 07/31/19 15:53 Clinimix - IV 42 mls/hr Q24H [facility] Administration Ceftriaxone Sodium 1 gm/ 50 mls @ 100 mls/hr 07/29/19 10:00 07/31/19 09:59 Dextrose IVPB 100 mls/hr DAILY [facility] Administration Protocol Metronidazole 500 mg in 100 mls @ 100 mls/hr 07/29/19 02:00 08/01/19 01:36 Flagyl 500mg Premixed Ivpb - IVPB 100 mls/hr Q8H-IV [facility] Administration Insulin Aspart 1 vial 07/29/19 07:00 08/01/19 06:23 Novolog Vial Sliding Scale - SQ Not Given TIDAC [facility] Protocol Levetiracetam 750 mg 07/28/19 22:00 07/31/19 22:56 Keppra Injection - IVPB 750 mg BID [facility] Administration Memantine 5 mg 07/28/19 22:00 07/31/19 22:49 Namenda - PO Not Given BID [facility] Methylprednisolone Sodium Succinate 40 mg 07/29/19 10:00 07/31/19 10:00 Solu-Medrol - IVPUSH 40 mg DAILY [facility] Administration Metoprolol Tartrate 5 mg 08/01/19 08:45 Lopressor Injection - IVPUSH Q6H [facility] Pantoprazole Sodium 40 mg 07/29/19 10:00 07/31/19 10:00 Protonix Iv IVPUSH 40 mg DAILY [facility] Administration Laboratory Results - last 24 hr 07/31/19 07/31/19 11:19 17:15 POC Glucometer 146 229 S1 S2 RRR Lungs decreased, ronchi+ Abd-soft, NT edema+ PLAN IV antibiotics for aspiration pneumonia keppra iv for possible seizures MRI brain negative for CVA nebs chest PT continue with meds DNI swallow therapist follow up -->for MBS on Friday on clinimix now BIPAP prn pt was on PO Metoprolol=-- will change to IV Metoprolol scheduled as pt is NPO Problem List - Problems (1) Toxic metabolic encephalopathy Code(s): G92 - TOXIC ENCEPHALOPATHY (2) Altered mental status Code(s): R41.82 - ALTERED MENTAL STATUS, UNSPECIFIED Qualifiers: Altered mental status type: unspecified Qualified Code(s): R41.82 - Altered mental status, unspecified (3) Aspiration pneumonia Code(s): J69.0 - PNEUMONITIS DUE TO INHALATION OF FOOD AND VOMIT (4) Acute respiratory failure Code(s): J96.00 - ACUTE RESPIRATORY FAILURE, UNSP W HYPOXIA OR HYPERCAPNIA (5) Functional quadriplegia Code(s): R53.2 - FUNCTIONAL QUADRIPLEGIA
[2019-08-01] MEDS ORDERED: METOPROLOL TARTRATE 5 MG/5 ML VIAL IVPUSH SCH (08:45)
[2019-08-01] MEDS: ASPIRIN 81 MG CHEWABLE TABLETS PO SCH (10:53)
[2019-08-01] MEDS ORDERED: DEXTROSE 5%-WATER - 50 ML IVPB ONE (11:01)
[2019-08-01] MEDS ORDERED: cefTRIAXone SODIUM 1 GM VIAL ONE (11:01)
[2019-08-01] MEDS: MEMANTINE HCL 5 MG TABLET (UD) PO SCH (11:27)
[2019-08-01] MEDS: BUDESONIDE/FORMETEROL FUMARATE 160/4.5 mcg INHALER IH SCH (11:27)
[2019-08-01] MEDS: CEFTRIAXONE 1 GM in DEXTROSE 5%-WATER - 50 ML IVPB SCH (11:45)
[2019-08-01] MEDS: methylPREDNISolone NA SUCC 40 MG/1 ML VIAL IVPUSH SCH (11:45)
[2019-08-01] MEDS: PANTOPRAZOLE SODIUM 40 MG VIAL IVPUSH SCH (11:46)
--- NOTE | 2019-08-01 13:17 | PN ---
Progress Note (short form) - Note Progress Note: PULMONARY VSS/Afebrile Eyes: Yes: WNL HENT: Yes: WNL Neck: Yes: WNL Cardiovascular: Yes: Regular Rate and Rhythm, S1, S2 Respiratory: Yes: Diminished (poor inspiratory effort) Gastrointestinal: Yes: Normal Bowel Sounds, Soft Extremities: Yes: WNL Edema: Yes Labs: reviewed ASSESSMENT AND PLAN: Acute Hypoxic Respiratory Failure Pneumonia likely Aspiration Atelectasis Acute COPD Exacerbation improving h/o Colon Ca HTN Hyperlipidemia Alzheimer's Dementia - antibiotics - chest PT - mucolytics - taper O2 to keep SpO2 >90% - BiPAP as needed to assist in work of breathing - aspiration precautions - taper off medrol - inhaled bronchodilators - niv as required Erich FRIEDMAN MD
[2019-08-01] MEDS: levETIRAcetam 500 MG/5 ML INJECTION VIAL IVPB SCH (15:02)
[2019-08-01] MEDS: METOPROLOL TARTRATE 5 MG/5 ML VIAL IVPB SCH ×3 (15:03→23:43)
[2019-08-01] MEDS: HEPARIN NA (PORCINE) 5,000 UNITS/ML 1ML VIAL SQ SCH (15:03)
[2019-08-01] MEDS: AMINO ACIDS 4.25%/D5W 1,000 ML IV SCH (18:07)
[2019-08-02] MEDS: HEPARIN NA (PORCINE) 5,000 UNITS/ML 1ML VIAL SQ SCH ×3 (00:08→22:50)
[2019-08-02] MEDS: DONEPEZIL HCL 10 MG TABLET (FP) PO SCH ×2 (00:08→23:02)
[2019-08-02] MEDS: BUDESONIDE/FORMETEROL FUMARATE 160/4.5 mcg INHALER IH SCH ×2 (00:09→11:54)
[2019-08-02] MEDS: ATORVASTATIN CA 80 MG TABLET (FP) PO SCH ×2 (00:09→23:00)
[2019-08-02] MEDS: MEMANTINE HCL 5 MG TABLET (UD) PO SCH ×3 (00:09→23:01)
[2019-08-02] MEDS: levETIRAcetam 500 MG/5 ML INJECTION VIAL IVPB SCH ×3 (00:09→23:39)
[2019-08-02] MEDS: METOPROLOL TARTRATE 5 MG/5 ML VIAL IVPB SCH ×4 (05:28→22:46)
[2019-08-02] MEDS: GEMFIBROZIL 600 MG TABLET (FP) PO SCH ×2 (06:21→16:26)
[2019-08-02] MEDS: INSULIN SLIDING SCALE (NOVOLOG) 1 VIAL SQ SCH ×3 (06:21→16:30)
[2019-08-02] MEDS: ACETYLCYSTEINE 20% 200MG/ML 4 ML VIAL *FOR ORAL / INH USE ONLY NEB SCH ×4 (09:15→21:10)
[2019-08-02] MEDS: ALBUTEROL SO4 0.083% IH SOL 2.5 MG/3 ML VIAL.NEB. NEB SCH ×4 (09:15→21:11)
[2019-08-02] MEDS ORDERED: cefTRIAXone SODIUM 1 GM VIAL ONE (09:20)
[2019-08-02] MEDS ORDERED: DEXTROSE 5%-WATER - 50 ML IVPB ONE (09:20)
[2019-08-02] MEDS: PANTOPRAZOLE SODIUM 40 MG VIAL IVPUSH SCH (11:47)
[2019-08-02] MEDS: methylPREDNISolone NA SUCC 40 MG/1 ML VIAL IVPUSH SCH (11:47)
[2019-08-02] MEDS: ASPIRIN 81 MG CHEWABLE TABLETS PO SCH (11:53)
--- NOTE | 2019-08-02 12:14 | PN ---
Progress Note (short form) - Note Progress Note: PULMONARY More awake. Saturating well on 50% ventimask. Vital Signs Period Temp Pulse Resp BP Sys/Carr Pulse Ox Last 24 Hr 97.9 F-99.1 F 62-85 18-20 130-167/53-79 96-98 Gen: NAD at rest Heart: RRR Lung: decreased breath sounds at the bases Abd: soft, nontender Ext: no edema CBC, BMP 07/29/19 08:10 07/30/19 07:20 Active Medications Acetylcysteine (Mucomyst 20 Oral / Inh Use Only*) 1,000 mg NEB RQID [facility] Last Admin: 08/02/19 09:15 Dose: 1,000 mg Albuterol Sulfate (Ventolin 0.083% Nebulizer Soln -) 1 amp NEB RQID [facility] Last Admin: 08/02/19 09:15 Dose: 1 amp Aspirin (Asa -) 81 mg PO DAILY [facility] Last Admin: 08/02/19 11:53 Dose: Not Given Atorvastatin Calcium (Lipitor -) 80 mg PO HS [facility] Last Admin: 08/02/19 00:09 Dose: Not Given Budesonide/Formoterol Fumarate (Symbicort 160/4.5mcg -) 2 puff IH BID [facility] Last Admin: 08/02/19 11:54 Dose: Not Given Donepezil HCl (Aricept -) 10 mg PO HS [facility] Last Admin: 08/02/19 00:08 Dose: Not Given Gemfibrozil (Lopid -) 600 mg PO BIDAC [facility] Last Admin: 08/02/19 06:21 Dose: Not Given Heparin Sodium (Porcine) (Heparin -) 5,000 unit SQ BID [facility] Last Admin: 08/02/19 11:47 Dose: 5,000 unit Amino Acids (Clinimix -) 1,000 mls @ 42 mls/hr IV Q24H [facility] Last Admin: 08/01/19 18:07 Dose: 42 mls/hr Ceftriaxone Sodium 1 gm/ (Dextrose) 50 mls @ 100 mls/hr IVPB DAILY [facility]; Protocol Last Admin: 08/01/19 11:45 Dose: 100 mls/hr Metronidazole (Flagyl 500mg Premixed Ivpb -) 500 mg in 100 mls @ 100 mls/hr IVPB Q8H-IV [facility] Last Admin: 08/02/19 10:35 Dose: 100 mls/hr Insulin Aspart (Novolog Vial Sliding Scale -) 1 vial SQ TIDAC [facility]; Protocol Last Admin: 08/02/19 06:21 Dose: Not Given Levetiracetam (Keppra Injection -) 750 mg IVPB BID [facility] Last Admin: 08/02/19 09:32 Dose: 750 mg Memantine (Namenda -) 5 mg PO BID [facility] Last Admin: 08/02/19 11:54 Dose: Not Given Methylprednisolone Sodium Succinate (Solu-Medrol -) 40 mg IVPUSH DAILY [facility] Last Admin: 08/02/19 11:47 Dose: 40 mg Metoprolol Tartrate (Lopressor Injection -) 5 mg IVPB Q6H [facility] Last Admin: 08/02/19 11:44 Dose: 5 mg Pantoprazole Sodium (Protonix Iv) 40 mg IVPUSH DAILY [facility] Last Admin: 08/02/19 11:47 Dose: 40 mg A/P Acute Hypoxic Respiratory Failure Pneumonia likely Aspiration Atelectasis Acute COPD Exacerbation h/o Colon Ca HTN Hyperlipidemia Alzheimer's Dementia - continue antibiotics - chest PT - mucolytics - taper O2 to keep SpO2 >90%, can attempt nasal cannula - BiPAP as needed to assist in work of breathing - aspiration precautions - taper off medrol - inhaled bronchodilators
--- NOTE | 2019-08-02 12:40 | PN ---
Progress Note (short form) - Note Progress Note: Pt seen/ examined chart is reviewed awake drowsy No distress Vital Signs Temp 98.2 F 08/02/19 10:00 Pulse 66 08/02/19 11:44 Resp 20 08/02/19 10:00 BP 146/68 08/02/19 11:44 Pulse Ox 96 08/02/19 11:52 Intake & Output 08/01/19 08/02/19 08/02/19 23:59 11:59 23:59 Intake Total 368 854 Balance 368 854 Intake: IV 168 504 Clinimix 100mls @42 mls/ 168 504 hr IVPB 200 350 Oral 0 0 Other: Voiding Method Incontinent # Unmeasured Voids Void 2 1 Bowel Movement No No Body Mass Index (BMI) 30.4 Active Medications Acetylcysteine (Mucomyst 20 Oral / Inh Use Only*) 1,000 mg NEB RQID [facility] Last Admin: 08/02/19 09:15 Dose: 1,000 mg Albuterol Sulfate (Ventolin 0.083% Nebulizer Soln -) 1 amp NEB RQID [facility] Last Admin: 08/02/19 09:15 Dose: 1 amp Aspirin (Asa -) 81 mg PO DAILY [facility] Last Admin: 08/02/19 11:53 Dose: Not Given Atorvastatin Calcium (Lipitor -) 80 mg PO HS [facility] Last Admin: 08/02/19 00:09 Dose: Not Given Budesonide/Formoterol Fumarate (Symbicort 160/4.5mcg -) 2 puff IH BID [facility] Last Admin: 08/02/19 11:54 Dose: Not Given Donepezil HCl (Aricept -) 10 mg PO HS [facility] Last Admin: 08/02/19 00:08 Dose: Not Given Gemfibrozil (Lopid -) 600 mg PO BIDAC [facility] Last Admin: 08/02/19 06:21 Dose: Not Given Heparin Sodium (Porcine) (Heparin -) 5,000 unit SQ BID [facility] Last Admin: 08/02/19 11:47 Dose: 5,000 unit Amino Acids (Clinimix -) 1,000 mls @ 42 mls/hr IV Q24H [facility] Last Admin: 08/01/19 18:07 Dose: 42 mls/hr Ceftriaxone Sodium 1 gm/ (Dextrose) 50 mls @ 100 mls/hr IVPB DAILY [facility]; Protocol Last Admin: 08/01/19 11:45 Dose: 100 mls/hr Metronidazole (Flagyl 500mg Premixed Ivpb -) 500 mg in 100 mls @ 100 mls/hr IVPB Q8H-IV [facility] Last Admin: 08/02/19 10:35 Dose: 100 mls/hr Insulin Aspart (Novolog Vial Sliding Scale -) 1 vial SQ TIDAC [facility]; Protocol Last Admin: 08/02/19 06:21 Dose: Not Given Levetiracetam (Keppra Injection -) 750 mg IVPB BID [facility] Last Admin: 08/02/19 09:32 Dose: 750 mg Memantine (Namenda -) 5 mg PO BID [facility] Last Admin: 08/02/19 11:54 Dose: Not Given Methylprednisolone Sodium Succinate (Solu-Medrol -) 40 mg IVPUSH DAILY [facility] Last Admin: 08/02/19 11:47 Dose: 40 mg Metoprolol Tartrate (Lopressor Injection -) 5 mg IVPB Q6H [facility] Last Admin: 08/02/19 11:44 Dose: 5 mg Pantoprazole Sodium (Protonix Iv) 40 mg IVPUSH DAILY [facility] Last Admin: 08/02/19 11:47 Dose: 40 mg CBC, BMP 07/29/19 08:10 07/30/19 07:20 Hepatic Panel Total Bilirubin 0.3 mg/dL (0.2-1) 07/29/19 08:10 AST 22 U/L (15-37) 07/29/19 08:10 ALT 29 U/L (13-61) 07/29/19 08:10 Alkaline Phosphatase 86 U/L (45-117) 07/29/19 08:10 Albumin 2.8 g/dl (3.4-5.0) L 07/29/19 08:10 Physical exam S1 S2 RRR Lungs decreased, ronchi+-- scattered Abd-soft, NT edema+ PLAN IV antibiotics for aspiration pneumonia-- d/c and observe keppra iv for possible seizures MRI brain negative for CVA nebs chest PT continue with meds DNI on clinimix now BIPAP prn f/u labs. swallowing study today-- d/w Nelly Shrestha d/w pts aid/ also will follow. Problem List - Problems (1) Altered mental status Code(s): R41.82 - ALTERED MENTAL STATUS, UNSPECIFIED Qualifiers: Altered mental status type: unspecified Qualified Code(s): R41.82 - Altered mental status, unspecified (2) Aspiration pneumonia Code(s): J69.0 - PNEUMONITIS DUE TO INHALATION OF FOOD AND VOMIT
[2019-08-02] MEDS: CEFTRIAXONE 1 GM in DEXTROSE 5%-WATER - 50 ML IVPB SCH (13:51)
[2019-08-02] MEDS: AMINO ACIDS 4.25%/D5W 1,000 ML IV SCH (16:25)
[2019-08-03] MEDS: BUDESONIDE/FORMETEROL FUMARATE 160/4.5 mcg INHALER IH SCH ×2 (03:35→10:04)
[2019-08-03] MEDS: METOPROLOL TARTRATE 5 MG/5 ML VIAL IVPB SCH (03:37)
[2019-08-03] MEDS: GEMFIBROZIL 600 MG TABLET (FP) PO SCH ×2 (06:37→16:21)
[2019-08-03] MEDS: INSULIN SLIDING SCALE (NOVOLOG) 1 VIAL SQ SCH ×3 (06:38→16:20)
[2019-08-03] MEDS: ACETYLCYSTEINE 20% 200MG/ML 4 ML VIAL *FOR ORAL / INH USE ONLY NEB SCH (08:27)
[2019-08-03 09:06] LABS: BASO % 0.3 % (0-2.0); EOS % 1.3 % (0-4.5); HEMATOCRIT 36.6 % (32.4-45.2); HEMOGLOBIN 12.2 GM/dL (10.7-15.3); LYMPH % 22.9 % (8-40); MCH 31.4 pg (25.7-33.7); MCHC 33.4 g/dl (32.0-36.0); MEAN CELL VOLUME 93.8 fl (80-96); MEAN PLT VOLUME 9.4 fl (7.5-11.1); MONO % 6.1 % (3.8-10.2); NEUT % 69.4 % (42.8-82.8); PLATELET COUNT 263 K/MM3 (134-434); RDW 14.7 % (11.6-15.6); WHITE BLOOD COUNT 13.6 K/mm3 (4.0-10.0)
[2019-08-03 09:33] LABS: ALBUMIN 2.5 g/dl (3.4-5.0); BILIRUBIN,TOTAL 0.4 mg/dL (0.2-1); BLOOD UREA NITROGEN 13.1 mg/dL (7-18); CALCIUM 9.1 mg/dL (8.5-10.1); CREATININE 0.5 mg/dL (0.55-1.3); POTASSIUM 3.3 mmol/L (3.5-5.1); TOT PROT 5.7 g/dl (6.4-8.2)
[2019-08-03] MEDS ORDERED: METOPROLOL TARTRATE 25 MG TABLET (FP) PO SCH (10:00)
[2019-08-03] MEDS ORDERED: PANTOPRAZOLE 40 MG TABLET (FP) PO SCH (10:00)
[2019-08-03] MEDS ORDERED: levETIRAcetam 500 MG TABLET (FP) PO SCH (10:00)
[2019-08-03] MEDS: ASPIRIN 81 MG CHEWABLE TABLETS PO SCH (10:03)
[2019-08-03] MEDS: HEPARIN NA (PORCINE) 5,000 UNITS/ML 1ML VIAL SQ SCH (10:03)
[2019-08-03] MEDS: methylPREDNISolone NA SUCC 40 MG/1 ML VIAL IVPUSH SCH (10:03)
[2019-08-03] MEDS: MEMANTINE HCL 5 MG TABLET (UD) PO SCH (10:03)
--- NOTE | 2019-08-03 11:58 | PN ---
Progress Note (short form) - Note Progress Note: PULMONARY No fevers recorded. Saturating well on nasal cannula. Vital Signs Period Temp Pulse Resp BP Sys/Carr Pulse Ox Last 24 Hr 97.4 F-99.2 F 59-74 20-20 116-152/67-80 96-100 Gen: NAD at rest Heart: RRR Lung: decreased breath sounds at the bases Abd: soft, nontender Ext: no edema CBC, BMP 08/03/19 08:25 08/03/19 08:25 Active Medications Acetylcysteine (Mucomyst 20 Oral / Inh Use Only*) 1,000 mg NEB RQID [facility] Last Admin: 08/03/19 08:27 Dose: 1,000 mg Albuterol Sulfate (Ventolin 0.083% Nebulizer Soln -) 1 amp NEB RQID [facility] Aspirin (Asa -) 81 mg PO DAILY [facility] Last Admin: 08/03/19 10:03 Dose: 81 mg Atorvastatin Calcium (Lipitor -) 80 mg PO HS [facility] Last Admin: 08/02/19 23:00 Dose: 80 mg Budesonide/Formoterol Fumarate (Symbicort 160/4.5mcg -) 2 puff IH BID [facility] Last Admin: 08/03/19 10:04 Dose: Not Given Donepezil HCl (Aricept -) 10 mg PO HS [facility] Last Admin: 08/02/19 23:02 Dose: 10 mg Gemfibrozil (Lopid -) 600 mg PO BIDAC [facility] Last Admin: 08/03/19 06:37 Dose: 600 mg Heparin Sodium (Porcine) (Heparin -) 5,000 unit SQ BID [facility] Last Admin: 08/03/19 10:03 Dose: 5,000 unit Insulin Aspart (Novolog Vial Sliding Scale -) 1 vial SQ TIDAC [facility]; Protocol Last Admin: 08/03/19 06:38 Dose: Not Given Levetiracetam (Keppra -) 750 mg PO BID [facility] Last Admin: 08/03/19 10:03 Dose: 750 mg Memantine (Namenda -) 5 mg PO BID [facility] Last Admin: 08/03/19 10:03 Dose: 5 mg Methylprednisolone Sodium Succinate (Solu-Medrol -) 40 mg IVPUSH DAILY [facility] Last Admin: 08/03/19 10:03 Dose: 40 mg Metoprolol Tartrate (Lopressor -) 25 mg PO BID [facility] Last Admin: 08/03/19 10:03 Dose: 25 mg Pantoprazole Sodium (Protonix -) 40 mg PO DAILY [facility] Last Admin: 08/03/19 10:03 Dose: 40 mg A/P Acute Hypoxic Respiratory Failure improving Pneumonia likely Aspiration Atelectasis Acute COPD Exacerbation h/o Colon Ca HTN Hyperlipidemia Alzheimer's Dementia - continue antibiotics - chest PT - mucolytics - taper O2 to keep SpO2 >90% - BiPAP as needed to assist in work of breathing - aspiration precautions - can d/c steroids - inhaled bronchodilators
[2019-08-03] MEDS: ALBUTEROL SO4 0.083% IH SOL 2.5 MG/3 ML VIAL.NEB. NEB SCH ×2 (12:22→16:21)
[2019-08-03] MEDS ORDERED: POTASSIUM CHLORIDE ORAL LIQUID 20 MEQ/15 ML PO ONE (12:25)
--- NOTE | 2019-08-03 12:47 | DS ---
Physical Examination Vital Signs: Vital Signs Temperature 98.1 F 08/03/19 10:00 Pulse Rate 71 08/03/19 10:00 Respiratory Rate 20 08/03/19 10:00 Blood Pressure 159/84 08/03/19 10:00 O2 Sat by Pulse Oximetry (%) 96 08/03/19 08:26 Constitutional: Yes: No Distress, Calm Cardiovascular: Yes: Regular Rate and Rhythm Respiratory: Yes: Diminished Gastrointestinal: Yes: Normal Bowel Sounds, Soft, Abdomen, Obese. No: Tenderness Edema: Yes Edema: LLE: 1+, RLE: 1+ Neurological: Yes: Alert Labs: CBC, BMP 08/03/19 08:25 08/03/19 08:25 Discharge Summary Problems reviewed: Yes Reason For Visit: aspiration pneumonia Current Active Problems Acute respiratory failure (Acute) Altered mental status (Acute) Aspiration pneumonia (Acute) COPD exacerbation (Acute) Functional quadriplegia (Acute) Toxic metabolic encephalopathy (Acute) Hospital Course: - Admission History of Present Illness: Pt seen/ examined chart reviewed Er records reviewed and as per Er records The patient is a 73 year old female, with a significant past medical history of HTN, Alzheimer's dementia, COPD,Colon Ca who presents to the emergency department with AMS. Patient is nonverbal at baseline and can not contribute to history. Per NH, pt typically able to recognize her but has not done so for 2 days. Patient has a gaze to the left side which states is new since yesterday morning. I also spoke to / Aid today Pt awake. Poor historian advance dementia Known to me from care home 'NO gaze now CT head -ve pt also has cough / expectorant per ct chest- Infiltrate ? HOSPITAL COURSE Pt was initially admitted to ICU-- on BIPAP-- could not tolerate BIPAP as she was lethargic and eventually needed intubation. MRI brain--> negative CT chest -- right infiltrate EEG-- >diffuse encephalopathy Evaluated by ICU team , ID Was placed on IV antibiotics, iv solumedrol, nebs Pt improved and was extubated Was on ventimask and weaned to nasal canula She underwent modified barium swallow--> nectar thick liquids and puree diet she is tolerating diet improved clinically antibiotics discontinued yesterday and she completed iv solumedrol today remains afebrile Stable for dc to NH A/P Acute Hypoxic Respiratory Failure improving Pneumonia likely Aspiration Atelectasis Acute COPD Exacerbation h/o Colon Ca HTN Hyperlipidemia Alzheimer's Dementia Condition: Improved - Instructions Referrals: Louise Jack MD [Primary Care Provider] - Disposition: [facility] FACILITY - Home Medications Comprehensive Discharge Medication List: Ambulatory Orders Aspirin 81 mg PO BID 07/22/19 Atorvastatin Ca [Lipitor] 80 mg PO HS 07/22/19 Budesonide/Formeterol Fumarate [SYMBICORT 160/4.5mcg -] 2 inh PO BID 07/22/19 Donepezil HCl 10 mg PO HS 07/22/19 Furosemide 40 mg PO DAILY 07/22/19 Gemfibrozil [Lopid] 600 mg PO BID 07/22/19 Guaifenesin/Dextromethorphan [Robitussin Cough-Chest Dm Liq] 10 ml PO QID PRN Ipratropium/Albuterol Sulfate [Iprat-Albut 0.5-3(2.5) mg/3 ml] 3 ml IH QID 07/22 Memantine HCl [Namenda -] 5 mg PO BID 07/22/19 Metoprolol Tartrate 25 mg PO BID 07/22/19 Nystatin Cream [Mycostatin] 1 applic TP BID 07/22/19 Pantoprazole Sodium [Protonix -] 20 mg PO DAILY 07/22/19
[2019-08-03] MEDS ORDERED: NYSTATIN/TRIAMCINOLONE TOPICAL OINTMENT 15 GM TUBE TP SCH (13:00)
--- NOTE | 2019-08-03 14:53 | PN ---
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 Pt tolerating puree/nectar/magic cup with 100% intake, per nursing.
[2019-08-03 15:53] VITALS: BP 132/69; PULSE 68; TEMP 99
== END 2019-08-03 17:50 | DRG 177 ==
LOC: JER 12:34 → JERBED 16:18 → J4W 07-23 11:13 → JICU 07-25 06:16 → J5S 07-28 20:13
PROVIDERS: ADMIT Internal Medicine; ATTEND Internal Medicine
PROC: 5A09457 Assistance with Respiratory Ventilation, 24-96 Consecutive Hours, Continuous Positive Airway Pressure (ICD-10-PCS; principal; 2019-08-02)
DX: J69.0 Pneumonitis due to inhalation of food and vomit (principal); J96.01 Acute respiratory failure with hypoxia; R53.2 Functional quadriplegia; G93.41 Metabolic encephalopathy; J44.1 Chronic obstructive pulmonary disease with (acute) exacerbation; E87.2 Acidosis; J98.11 Atelectasis; J44.9 Chronic obstructive pulmonary disease, unspecified; G30.9 Alzheimer's disease, unspecified; F02.80 Dementia in other diseases classified elsewhere, unspecified severity, without behavioral disturbance, psychotic disturbance, mood disturbance, and anxiety; Z85.038 Personal history of other malignant neoplasm of large intestine; E78.5 Hyperlipidemia, unspecified; I10 Essential (primary) hypertension; R41.82 Altered mental status, unspecified
CPT/HCPCS: 36415; 36600; 70450-TC; 70551-TC; 71045-TC-FY; 71250-TC; 74230-TC-FY; 80048; 80053; 80061; 80164; 81003; 82465; 82550; 82803; 82962; 83036; 83605; 83718; 83721; 83735; 84100; 84443; 84478; 84484; 85025; 85027; 85610; 85730; 86850; 86900; 86901; 87086; 87899; 92611-GN; 93005; 93010; 94640; 94660; 95816; 97161-GP; 99285-25; J1644; J7030

== ENCOUNTER 2022-09-01 00:21 | Inpatient (IN) | payer OTHER ==
[2022-09-01] MEDS ORDERED: VANCOMYCIN 1 GM in D5W (PRE-DOCKED) 1,000 MG/250 ML IVPB ONE (00:32)
[2022-09-01] MEDS ORDERED: ACETAMINOPHEN 1000 MG/100 ML BAG IVPB ONE (00:32)
[2022-09-01] MEDS ORDERED: PIPERACILLIN/TAZOB 4.5 GM 4.5 GM in DEXTROSE 5%-WATER 100 ML IVPB ONE (00:32)
[2022-09-01] MEDS ORDERED: DEXAMETHASONE SOD PHOSPHATE 4 MG/1 ML VIAL IVPUSH ONE (00:33)
[2022-09-01] MEDS ORDERED: PIPERACILLIN/TAZOB 4.5 GM 4.5 GM/100 ML BAG IVPB ONE (01:26)
[2022-09-01] MEDS ORDERED: VANCOMYCIN/WATER FOR INJ (PEG) 1,000 MG/200 ML BAG IVPB ONE (01:26)
[2022-09-01] MEDS ORDERED: DEXAMETHASONE SOD PHOSPHATE 10 MG/1 ML VIAL ONE (01:26)
[2022-09-01] MEDS ORDERED: ACETAMINOPHEN INJECTION 100 ML IVPB ONE ×2 (01:26→10:25)
[2022-09-01 01:27] LABS: VENOUS BASE EXCESS 3.8 mmol/L (-2-2); VENOUS O2 SATURATION 95.4 % (70-80); VENOUS PCO2 47.4 mmHg (38-52); VENOUS PH 7.41 (7.310-7.410)
[2022-09-01 01:44] LABS: BASO % 0.2 % (0-2.0); EOS % 0.1 % (0-4.5); HEMATOCRIT 43.8 % (32.4-45.2); HEMOGLOBIN 13.5 GM/dL (10.7-15.3); LYMPH % 11.4 % (8-40); MCH 28.7 pg (25.7-33.7); MCHC 30.9 g/dl (32.0-36.0); MEAN CELL VOLUME 92.9 fl (80-96); MEAN PLT VOLUME 9.8 fl (7.5-11.1); MONO % 9.9 % (3.8-10.2); NEUT % 78.4 % (42.8-82.8); PLATELET COUNT 299 10^3/uL (134-434); RBC 4.72 M/mm3 (3.60-5.2); RDW 15.5 % (11.6-15.6); WHITE BLOOD COUNT 12.2 K/mm3 (4.0-10.0)
[2022-09-01 01:46] LABS: EPI CELLS >36 /uL (0-25.1); HYALINE CASTS 9 /uL (0-3.1); PH,URINE 5.5 (5.0-8.0); URINE APPEARANCE CLOUDY; URINE BACTERIA 223 /uL (0-1359); URINE BILIRUBIN NEGATIVE (NEGATIVE); URINE COLOR YELLOW; URINE GLUCOSE (UA) NEGATIVE (NEGATIVE); URINE KETONE NEGATIVE (NEGATIVE); URINE LEUK ESTERASE 2+ (NEGATIVE); URINE NITRITE NEGATIVE (NEGATIVE); URINE PROTEIN 3+ (NEGATIVE); URINE WBC 536 /uL (0-25.8)
[2022-09-01 02:01] LABS: CHLORIDE 118 mmol/L (98-107); SODIUM 155 mmol/L (136-145)
[2022-09-01 02:03] LABS: CALCIUM 9.7 mg/dL (8.5-10.1)
[2022-09-01 02:04] LABS: ANION GAP 10 MMOL/L (8-16); BLOOD UREA NITROGEN 16.7 mg/dL (7-18); CO2 28 mmol/L (21-32); GLUCOSE,RANDOM 192 mg/dL (74-106)
[2022-09-01 02:07] LABS: CREATININE 0.8 mg/dL (0.55-1.3); SGOT/AST 20 U/L (15-37); SGPT/ALT 31 U/L (13-61)
[2022-09-01 02:08] LABS: TOT PROT 7.7 g/dl (6.4-8.2)
[2022-09-01 02:09] LABS: BILIRUBIN,TOTAL 0.4 mg/dL (0.2-1)
[2022-09-01 02:10] LABS: ALK PHOS 86 U/L (45-117)
[2022-09-01 02:12] LABS: INR 1.06 (0.83-1.09); N-TERMINAL BNP 491.3 pg/ml (5-450); PROTHROMBIN TIME (PATIENT) 12.2 SEC (9.7-13.0)
[2022-09-01] MEDS ORDERED: SODIUM CHLORIDE 500 ML IV STA (02:15)
[2022-09-01 02:16] LABS: LACTIC ACID 2.1 mmol/L (0.4-2.0)
[2022-09-01 09:09] LABS: URINE RBC MODERATE /uL (0-23.9); YEAST NO SEEN (NEGATIVE)
[2022-09-01 11:25] LABS: MAGNESIUM 2.5 mg/dL (1.8-2.4)
[2022-09-01] MEDS ORDERED: SODIUM CHLORIDE 0.45% 1,000 ML IV SCH (11:30)
[2022-09-01 11:33] LABS: LDH 354 U/L (84-246)
[2022-09-01] MEDS: DEXTROSE 5%-0.45% SALINE 1,000 ML IV SCH (11:51)
[2022-09-01] MEDS ORDERED: REMDESIVIR 200 MG in SODIUM CHLORIDE 250 ML IVPB ONE (12:00)
[2022-09-01] MEDS ORDERED: ENOXAPARIN NA (PORCINE) 40 MG/0.4 ML DISP.SYRIN SQ ONE (13:40)
[2022-09-01] MEDS: ENOXAPARIN NA (PORCINE) 40 MG/0.4 ML DISP.SYRIN SQ SCH (13:43)
[2022-09-01] MEDS ORDERED: CEFTRIAXONE 2 GM/100 ML BAG IVPB ONE (19:48)
[2022-09-01] MEDS: CEFTRIAXONE 2 GM in DEXTROSE 5%-WATER 100 ML IVPB SCH (19:53)
[2022-09-02] MEDS ORDERED: ACETAMINOPHEN 1000 MG/100 ML BAG IVPB PRN (00:28)
[2022-09-02] MEDS ORDERED: DEXAMETHASONE SOD PHOSPHATE 10 MG/1 ML VIAL ONE (09:28)
[2022-09-02] MEDS ORDERED: CEFTRIAXONE 2 GM/100 ML BAG IVPB ONE (09:28)
[2022-09-02] MEDS ORDERED: ENOXAPARIN NA (PORCINE) 40 MG/0.4 ML DISP.SYRIN SQ ONE (09:29)
[2022-09-02] MEDS: DEXAMETHASONE SOD PHOSPHATE 4 MG/1 ML VIAL IVPUSH SCH (09:49)
[2022-09-02] MEDS: ENOXAPARIN NA (PORCINE) 40 MG/0.4 ML DISP.SYRIN SQ SCH (09:50)
[2022-09-02] MEDS: CEFTRIAXONE 2 GM in DEXTROSE 5%-WATER 100 ML IVPB SCH (09:50)
[2022-09-02] MEDS: DEXTROSE 5%-0.45% SALINE 1,000 ML IV SCH (11:45)
[2022-09-02] MEDS: REMDESIVIR 100 MG in SODIUM CHLORIDE 250 ML IVPB SCH (11:46)
[2022-09-02] MEDS ORDERED: ACETAMINOPHEN INJECTION 100 ML IVPB ONE (20:27)
[2022-09-03] MEDS ORDERED: CEFTRIAXONE 2 GM/100 ML BAG IVPB ONE (07:50)
[2022-09-03] MEDS ORDERED: ENOXAPARIN NA (PORCINE) 40 MG/0.4 ML DISP.SYRIN SQ ONE (07:50)
[2022-09-03] MEDS ORDERED: DEXAMETHASONE SOD PHOSPHATE 10 MG/1 ML VIAL ONE (07:50)
[2022-09-03 08:00] LABS: BASO % 0.1 % (0-2.0); EOS % 0.2 % (0-4.5); HEMATOCRIT 37.4 % (32.4-45.2); HEMOGLOBIN 12.1 GM/dL (10.7-15.3); LYMPH % 15.5 % (8-40); MCH 29.6 pg (25.7-33.7); MCHC 32.3 g/dl (32.0-36.0); MEAN CELL VOLUME 91.6 fl (80-96); MEAN PLT VOLUME 10.3 fl (7.5-11.1); MONO % 5.3 % (3.8-10.2); NEUT % 78.9 % (42.8-82.8); PLATELET COUNT 310 10^3/uL (134-434); RBC 4.08 M/mm3 (3.60-5.2); RDW 14.4 % (11.6-15.6); WHITE BLOOD COUNT 10.6 K/mm3 (4.0-10.0)
[2022-09-03 08:16] LABS: CALCIUM 9.6 mg/dL (8.5-10.1)
[2022-09-03 08:17] LABS: ALBUMIN 2.5 g/dl (3.4-5.0); BLOOD UREA NITROGEN 14.4 mg/dL (7-18)
[2022-09-03 08:19] LABS: CREATININE 0.7 mg/dL (0.55-1.3)
[2022-09-03 08:21] LABS: BILIRUBIN,TOTAL 0.4 mg/dL (0.2-1); TOT PROT 6.6 g/dl (6.4-8.2)
[2022-09-03] MEDS: CEFTRIAXONE 2 GM in DEXTROSE 5%-WATER 100 ML IVPB SCH (10:00)
[2022-09-03] MEDS: DEXAMETHASONE SOD PHOSPHATE 4 MG/1 ML VIAL IVPUSH SCH (10:00)
[2022-09-03] MEDS: ENOXAPARIN NA (PORCINE) 40 MG/0.4 ML DISP.SYRIN SQ SCH (10:00)
[2022-09-03] MEDS: REMDESIVIR 100 MG in SODIUM CHLORIDE 250 ML IVPB SCH (11:41)
[2022-09-03] MEDS: DEXTROSE 5%-0.45% SALINE 1,000 ML IV SCH (11:42)
[2022-09-03] MEDS ORDERED: ACETAMINOPHEN 325 MG TABLET (FP) PO PRN (20:53)
[2022-09-03] MEDS ORDERED: POTASSIUM CHLORIDE ORAL LIQUID 20 MEQ/15 ML PO ONE (20:55)
[2022-09-03] MEDS ORDERED: SODIUM CHLORIDE 0.45% 1,000 ML IV SCH (21:00)
[2022-09-03] MEDS ORDERED: METOPROLOL TARTRATE 25 MG TABLET (FP) ONE (22:35)
[2022-09-03] MEDS ORDERED: levETIRAcetam 500 MG/5 ML INJECTION VIAL IVPB ONE (22:35)
[2022-09-03] MEDS ORDERED: POTASSIUM CHLORIDE ORAL LIQUID 20 MEQ/15 ML ONE (22:36)
[2022-09-03] MEDS: LATANOPROST 0.005% OPHTH SOLN 2.5ML BOTTLE OU SCH (22:43)
[2022-09-03] MEDS: METOPROLOL TARTRATE 25 MG TABLET (FP) PO SCH (22:51)
[2022-09-03] MEDS: levETIRAcetam 500 MG TABLET (FP) PO SCH (22:51)
[2022-09-04 08:16] LABS: HEMATOCRIT 35.4 % (32.4-45.2); HEMOGLOBIN 11.4 GM/dL (10.7-15.3); MCH 29.5 pg (25.7-33.7); MCHC 32.1 g/dl (32.0-36.0); MEAN CELL VOLUME 91.8 fl (80-96); PLATELET COUNT 304 10^3/uL (134-434); RBC 3.86 M/mm3 (3.60-5.2); RDW 14.9 % (11.6-15.6); WHITE BLOOD COUNT 8.6 K/mm3 (4.0-10.0)
[2022-09-04 08:20] LABS: BLOOD UREA NITROGEN 14.4 mg/dL (7-18)
[2022-09-04 08:23] LABS: CREATININE 0.6 mg/dL (0.55-1.3)
[2022-09-04] MEDS ORDERED: FUROSEMIDE 40 MG TABLET (FP) PO SCH (10:00)
[2022-09-04] MEDS ORDERED: FUROSEMIDE 40 MG TABLET (FP) ONE (10:28)
[2022-09-04] MEDS ORDERED: METOPROLOL TARTRATE 25 MG TABLET (FP) ONE (10:28)
[2022-09-04] MEDS ORDERED: DEXAMETHASONE SOD PHOSPHATE 4 MG/1 ML VIAL ONE (10:29)
[2022-09-04] MEDS ORDERED: levETIRAcetam 500 MG TABLET (FP) PO ONE (10:29)
[2022-09-04] MEDS ORDERED: ASPIRIN 81 MG CHEWABLE TABLETS ONE (10:29)
[2022-09-04] MEDS ORDERED: CEFTRIAXONE 2 GM/100 ML BAG IVPB ONE (10:30)
[2022-09-04] MEDS ORDERED: ENOXAPARIN NA (PORCINE) 40 MG/0.4 ML DISP.SYRIN SQ ONE (10:30)
[2022-09-04] MEDS: ENOXAPARIN NA (PORCINE) 40 MG/0.4 ML DISP.SYRIN SQ SCH (10:36)
[2022-09-04] MEDS: levETIRAcetam 500 MG TABLET (FP) PO SCH ×2 (10:37→22:31)
[2022-09-04] MEDS: ASPIRIN 81 MG CHEWABLE TABLETS PO SCH (10:37)
[2022-09-04] MEDS: CEFTRIAXONE 2 GM in DEXTROSE 5%-WATER 100 ML IVPB SCH (10:38)
[2022-09-04] MEDS: METOPROLOL TARTRATE 25 MG TABLET (FP) PO SCH ×2 (10:39→22:43)
[2022-09-04] MEDS: DEXAMETHASONE SOD PHOSPHATE 4 MG/1 ML VIAL IVPUSH SCH (10:39)
[2022-09-04] MEDS: REMDESIVIR 100 MG in SODIUM CHLORIDE 250 ML IVPB SCH (10:40)
[2022-09-04] MEDS ORDERED: KCL 10 MEQ IVPB 10 MEQ/100 ML INFUS.BAG IVPB SCH (16:15)
[2022-09-04] MEDS ORDERED: KCL 10 MEQ IVPB 10 MEQ/100 ML INFUS.BAG IVPB ONE (17:01)
[2022-09-04] MEDS: POTASSIUM CHLORIDE 10 MEQ in SODIUM CHLORIDE 0.45% 1,000 ML IV SCH (18:46)
[2022-09-05] MEDS: LATANOPROST 0.005% OPHTH SOLN 2.5ML BOTTLE OU SCH ×2 (00:38→21:44)
[2022-09-05] MEDS: POTASSIUM CHLORIDE 10 MEQ in SODIUM CHLORIDE 0.45% 1,000 ML IV SCH ×2 (04:20→16:59)
[2022-09-05] MEDS: METOPROLOL TARTRATE 25 MG TABLET (FP) PO SCH ×2 (11:11→21:34)
[2022-09-05] MEDS: levETIRAcetam 500 MG TABLET (FP) PO SCH ×2 (11:12→21:33)
[2022-09-05] MEDS: ASPIRIN 81 MG CHEWABLE TABLETS PO SCH (11:13)
[2022-09-05] MEDS: DEXAMETHASONE SOD PHOSPHATE 4 MG/1 ML VIAL IVPUSH SCH (11:16)
[2022-09-05] MEDS: CEFTRIAXONE 2 GM in DEXTROSE 5%-WATER 100 ML IVPB SCH (11:20)
[2022-09-05] MEDS: POLYETHYLENE GLYCOL (HEALTHYLAX) 3350 17 GM PACKET PO SCH ×2 (11:22→21:37)
[2022-09-05] MEDS: ENOXAPARIN NA (PORCINE) 40 MG/0.4 ML DISP.SYRIN SQ SCH (11:37)
[2022-09-05] MEDS: REMDESIVIR 100 MG in SODIUM CHLORIDE 250 ML IVPB SCH (11:56)
[2022-09-05] MEDS: metFORMIN HCL 500 MG TABLET (FP) PO SCH (16:59)
[2022-09-05] MEDS ORDERED: KCL 10 MEQ IVPB 10 MEQ/100 ML INFUS.BAG IVPB SCH (21:00)
[2022-09-05] MEDS: GEMFIBROZIL 600 MG TABLET (FP) PO SCH (21:34)
[2022-09-05] MEDS: ATORVASTATIN CA 80 MG TABLET (FP) PO SCH (21:34)
[2022-09-05] MEDS: SENNOSIDES 8.8 MG/5 ML SYRUP PO SCH (21:36)
[2022-09-06] MEDS: POTASSIUM CHLORIDE 10 MEQ in SODIUM CHLORIDE 0.45% 1,000 ML IV SCH (06:48)
[2022-09-06] MEDS: metFORMIN HCL 500 MG TABLET (FP) PO SCH ×2 (06:48→18:30)
[2022-09-06] MEDS: CEFTRIAXONE 2 GM in DEXTROSE 5%-WATER 100 ML IVPB SCH (12:02)
[2022-09-06] MEDS: DEXAMETHASONE SOD PHOSPHATE 4 MG/1 ML VIAL IVPUSH SCH (12:02)
[2022-09-06] MEDS: levETIRAcetam 500 MG TABLET (FP) PO SCH ×2 (12:23→21:52)
[2022-09-06] MEDS: GEMFIBROZIL 600 MG TABLET (FP) PO SCH ×2 (12:23→21:52)
[2022-09-06] MEDS: POLYETHYLENE GLYCOL (HEALTHYLAX) 3350 17 GM PACKET PO SCH ×2 (12:23→21:53)
[2022-09-06] MEDS: CEFUROXIME AXETIL 500 MG TABLET PO SCH ×2 (12:23→21:52)
[2022-09-06] MEDS: ENOXAPARIN NA (PORCINE) 40 MG/0.4 ML DISP.SYRIN SQ SCH (12:23)
[2022-09-06] MEDS: METOPROLOL TARTRATE 25 MG TABLET (FP) PO SCH ×3 (12:23→22:33)
[2022-09-06] MEDS: DEXAMETHASONE 4 MG TABLET (FP) PO SCH (12:24)
[2022-09-06] MEDS: amLODIPine BESYLATE 2.5 MG TABLET (FP) PO SCH (12:24)
[2022-09-06] MEDS: ASPIRIN 81 MG CHEWABLE TABLETS PO SCH (12:24)
[2022-09-06 13:16] LABS: BLOOD UREA NITROGEN 12.2 mg/dL (7-18)
[2022-09-06 13:19] LABS: CREATININE 0.7 mg/dL (0.55-1.3)
[2022-09-06] MEDS: ATORVASTATIN CA 80 MG TABLET (FP) PO SCH (21:52)
[2022-09-06] MEDS: SENNOSIDES 8.8 MG/5 ML SYRUP PO SCH (21:54)
[2022-09-06] MEDS: LATANOPROST 0.005% OPHTH SOLN 2.5ML BOTTLE OU SCH (21:55)
[2022-09-07] MEDS: metFORMIN HCL 500 MG TABLET (FP) PO SCH ×2 (06:25→17:00)
[2022-09-07] MEDS: ENOXAPARIN NA (PORCINE) 40 MG/0.4 ML DISP.SYRIN SQ SCH (10:40)
[2022-09-07] MEDS: METOPROLOL TARTRATE 25 MG TABLET (FP) PO SCH (10:40)
[2022-09-07] MEDS: levETIRAcetam 500 MG TABLET (FP) PO SCH ×2 (10:41→22:42)
[2022-09-07] MEDS: DEXAMETHASONE 4 MG TABLET (FP) PO SCH (10:41)
[2022-09-07] MEDS: POLYETHYLENE GLYCOL (HEALTHYLAX) 3350 17 GM PACKET PO SCH ×2 (10:42→22:43)
[2022-09-07] MEDS: amLODIPine BESYLATE 2.5 MG TABLET (FP) PO SCH (10:42)
[2022-09-07] MEDS: CEFUROXIME AXETIL 500 MG TABLET PO SCH ×2 (10:43→22:42)
[2022-09-07] MEDS: ASPIRIN 81 MG CHEWABLE TABLETS PO SCH (10:43)
[2022-09-07] MEDS: GEMFIBROZIL 600 MG TABLET (FP) PO SCH ×2 (10:43→17:00)
[2022-09-07 11:25] LABS: CALCIUM 9.2 mg/dL (8.5-10.1)
[2022-09-07 11:26] LABS: BLOOD UREA NITROGEN 13.8 mg/dL (7-18)
[2022-09-07 11:29] LABS: CREATININE 0.7 mg/dL (0.55-1.3)
[2022-09-07] MEDS ORDERED: BUDESONIDE/FORMETEROL FUMARATE 160/4.5 mcg INHALER IH ONE (12:01)
[2022-09-07] MEDS: guaiFENesin 200 MG/10 ML 10 ML UNIT-DOSE CUPS PO PRN (14:07)
[2022-09-07] MEDS: ATORVASTATIN CA 80 MG TABLET (FP) PO SCH (22:42)
[2022-09-07] MEDS: SENNOSIDES 8.8 MG/5 ML SYRUP PO SCH (22:42)
[2022-09-07] MEDS: LATANOPROST 0.005% OPHTH SOLN 2.5ML BOTTLE OU SCH (22:43)
[2022-09-08] MEDS: METOPROLOL TARTRATE 25 MG TABLET (FP) PO SCH ×3 (00:51→22:57)
[2022-09-08] MEDS: GEMFIBROZIL 600 MG TABLET (FP) PO SCH ×2 (06:03→16:24)
[2022-09-08] MEDS: metFORMIN HCL 500 MG TABLET (FP) PO SCH ×2 (06:04→16:24)
[2022-09-08] MEDS: POLYETHYLENE GLYCOL (HEALTHYLAX) 3350 17 GM PACKET PO SCH ×2 (09:34→22:45)
[2022-09-08] MEDS: CEFUROXIME AXETIL 500 MG TABLET PO SCH ×2 (09:34→22:56)
[2022-09-08] MEDS: DEXAMETHASONE 4 MG TABLET (FP) PO SCH (09:34)
[2022-09-08] MEDS: levETIRAcetam 500 MG TABLET (FP) PO SCH ×2 (09:34→22:55)
[2022-09-08] MEDS: amLODIPine BESYLATE 2.5 MG TABLET (FP) PO SCH (09:34)
[2022-09-08] MEDS: ENOXAPARIN NA (PORCINE) 40 MG/0.4 ML DISP.SYRIN SQ SCH (09:34)
[2022-09-08] MEDS: ASPIRIN 81 MG CHEWABLE TABLETS PO SCH (09:35)
[2022-09-08] MEDS: guaiFENesin 200 MG/10 ML 10 ML UNIT-DOSE CUPS PO PRN (12:00)
[2022-09-08 19:00] VITALS: BMI 25.8
[2022-09-08] MEDS: ATORVASTATIN CA 80 MG TABLET (FP) PO SCH (22:56)
[2022-09-08] MEDS: SENNOSIDES 8.8 MG/5 ML SYRUP PO SCH (23:00)
[2022-09-08] MEDS: LATANOPROST 0.005% OPHTH SOLN 2.5ML BOTTLE OU SCH (23:00)
[2022-09-09] MEDS: metFORMIN HCL 500 MG TABLET (FP) PO SCH ×2 (06:35→16:25)
[2022-09-09] MEDS: GEMFIBROZIL 600 MG TABLET (FP) PO SCH ×2 (06:36→16:25)
[2022-09-09] MEDS: ASPIRIN 81 MG CHEWABLE TABLETS PO SCH (10:22)
[2022-09-09] MEDS: DEXAMETHASONE 4 MG TABLET (FP) PO SCH (10:22)
[2022-09-09] MEDS: CEFUROXIME AXETIL 500 MG TABLET PO SCH (10:22)
[2022-09-09] MEDS: levETIRAcetam 500 MG TABLET (FP) PO SCH (10:23)
[2022-09-09] MEDS: POLYETHYLENE GLYCOL (HEALTHYLAX) 3350 17 GM PACKET PO SCH (10:23)
[2022-09-09 11:33] LABS: BASO % 0.1 % (0-2.0); EOS % 1.1 % (0-4.5); HEMATOCRIT 41.2 % (32.4-45.2); HEMOGLOBIN 13.1 GM/dL (10.7-15.3); LYMPH % 21.9 % (8-40); MCH 29.5 pg (25.7-33.7); MCHC 31.8 g/dl (32.0-36.0); MEAN CELL VOLUME 92.9 fl (80-96); MEAN PLT VOLUME 10.4 fl (7.5-11.1); MONO % 5.6 % (3.8-10.2); NEUT % 71.3 % (42.8-82.8); PLATELET COUNT 297 10^3/uL (134-434); RBC 4.44 M/mm3 (3.60-5.2); WHITE BLOOD COUNT 15.1 K/mm3 (4.0-10.0)
[2022-09-09 12:02] LABS: CALCIUM 9.1 mg/dL (8.5-10.1)
[2022-09-09 12:03] LABS: ALBUMIN 2.5 g/dl (3.4-5.0); BLOOD UREA NITROGEN 12.2 mg/dL (7-18)
[2022-09-09 12:06] LABS: CREATININE 0.6 mg/dL (0.55-1.3)
[2022-09-09 12:07] LABS: BILIRUBIN,TOTAL 0.4 mg/dL (0.2-1)
[2022-09-09] MEDS: amLODIPine BESYLATE 2.5 MG TABLET (FP) PO SCH (12:48)
[2022-09-09] MEDS: METOPROLOL TARTRATE 25 MG TABLET (FP) PO SCH (12:53)
[2022-09-10] MEDS: levETIRAcetam 500 MG TABLET (FP) PO SCH ×3 (00:15→21:17)
[2022-09-10] MEDS: POLYETHYLENE GLYCOL (HEALTHYLAX) 3350 17 GM PACKET PO SCH ×3 (00:15→21:19)
[2022-09-10] MEDS: CEFUROXIME AXETIL 500 MG TABLET PO SCH ×3 (00:17→21:17)
[2022-09-10] MEDS: ATORVASTATIN CA 80 MG TABLET (FP) PO SCH ×2 (00:17→21:17)
[2022-09-10] MEDS: SENNOSIDES 8.8 MG/5 ML SYRUP PO SCH ×2 (00:18→21:18)
[2022-09-10] MEDS: METOPROLOL TARTRATE 25 MG TABLET (FP) PO SCH ×3 (00:18→21:17)
[2022-09-10] MEDS: LATANOPROST 0.005% OPHTH SOLN 2.5ML BOTTLE OU SCH ×2 (00:19→21:19)
[2022-09-10] MEDS: GEMFIBROZIL 600 MG TABLET (FP) PO SCH ×2 (06:03→17:12)
[2022-09-10] MEDS: metFORMIN HCL 500 MG TABLET (FP) PO SCH ×2 (06:03→17:12)
[2022-09-10] MEDS: DEXAMETHASONE 4 MG TABLET (FP) PO SCH (10:43)
[2022-09-10] MEDS: ASPIRIN 81 MG CHEWABLE TABLETS PO SCH (10:43)
[2022-09-10] MEDS: amLODIPine BESYLATE 2.5 MG TABLET (FP) PO SCH (10:45)
[2022-09-11] MEDS: GEMFIBROZIL 600 MG TABLET (FP) PO SCH ×2 (06:12→16:28)
[2022-09-11] MEDS: metFORMIN HCL 500 MG TABLET (FP) PO SCH ×2 (06:12→16:29)
[2022-09-11] MEDS: ASPIRIN 81 MG CHEWABLE TABLETS PO SCH (10:35)
[2022-09-11] MEDS: levETIRAcetam 500 MG TABLET (FP) PO SCH ×2 (10:35→22:00)
[2022-09-11] MEDS: CEFUROXIME AXETIL 500 MG TABLET PO SCH ×2 (10:35→21:59)
[2022-09-11] MEDS: POLYETHYLENE GLYCOL (HEALTHYLAX) 3350 17 GM PACKET PO SCH ×2 (10:35→21:59)
[2022-09-11] MEDS: METOPROLOL TARTRATE 25 MG TABLET (FP) PO SCH ×2 (10:35→22:00)
[2022-09-11] MEDS: DEXAMETHASONE 4 MG TABLET (FP) PO SCH (10:35)
[2022-09-11] MEDS: amLODIPine BESYLATE 2.5 MG TABLET (FP) PO SCH (10:36)
[2022-09-11] MEDS: guaiFENesin 200 MG/10 ML 10 ML UNIT-DOSE CUPS PO PRN (12:10)
[2022-09-11] MEDS: HEPARIN NA (PORCINE) 5,000 UNITS/ML 1ML VIAL SQ SCH ×2 (12:42→21:59)
[2022-09-11] MEDS: ATORVASTATIN CA 80 MG TABLET (FP) PO SCH (22:00)
[2022-09-11] MEDS: SENNOSIDES 8.8 MG/5 ML SYRUP PO SCH (22:01)
[2022-09-12] MEDS: LATANOPROST 0.005% OPHTH SOLN 2.5ML BOTTLE OU SCH ×2 (00:39→22:45)
[2022-09-12] MEDS: GEMFIBROZIL 600 MG TABLET (FP) PO SCH ×2 (06:08→16:44)
[2022-09-12] MEDS: metFORMIN HCL 500 MG TABLET (FP) PO SCH ×2 (06:08→16:44)
[2022-09-12] MEDS: amLODIPine BESYLATE 2.5 MG TABLET (FP) PO SCH (10:15)
[2022-09-12] MEDS: DEXAMETHASONE 4 MG TABLET (FP) PO SCH (10:15)
[2022-09-12] MEDS: ASPIRIN 81 MG CHEWABLE TABLETS PO SCH (10:15)
[2022-09-12] MEDS: POLYETHYLENE GLYCOL (HEALTHYLAX) 3350 17 GM PACKET PO SCH ×3 (10:15→22:48)
[2022-09-12] MEDS: CEFUROXIME AXETIL 500 MG TABLET PO SCH ×2 (10:15→22:41)
[2022-09-12] MEDS: levETIRAcetam 500 MG TABLET (FP) PO SCH ×2 (10:15→22:41)
[2022-09-12] MEDS: METOPROLOL TARTRATE 25 MG TABLET (FP) PO SCH ×2 (10:15→22:00)
[2022-09-12] MEDS: HEPARIN NA (PORCINE) 5,000 UNITS/ML 1ML VIAL SQ SCH ×2 (10:16→22:41)
[2022-09-12] MEDS: ATORVASTATIN CA 80 MG TABLET (FP) PO SCH (22:42)
[2022-09-12] MEDS: SENNOSIDES 8.8 MG/5 ML SYRUP PO SCH (22:45)
[2022-09-13] MEDS: GEMFIBROZIL 600 MG TABLET (FP) PO SCH ×2 (06:40→16:24)
[2022-09-13] MEDS: metFORMIN HCL 500 MG TABLET (FP) PO SCH ×2 (06:40→16:24)
[2022-09-13] MEDS: METOPROLOL TARTRATE 25 MG TABLET (FP) PO SCH ×3 (10:15→22:10)
[2022-09-13] MEDS: amLODIPine BESYLATE 2.5 MG TABLET (FP) PO SCH ×2 (10:15→10:30)
[2022-09-13] MEDS: POLYETHYLENE GLYCOL (HEALTHYLAX) 3350 17 GM PACKET PO SCH ×2 (10:28→22:09)
[2022-09-13] MEDS: DEXAMETHASONE 4 MG TABLET (FP) PO SCH (10:29)
[2022-09-13] MEDS: HEPARIN NA (PORCINE) 5,000 UNITS/ML 1ML VIAL SQ SCH ×2 (10:30→22:09)
[2022-09-13] MEDS: CEFUROXIME AXETIL 500 MG TABLET PO SCH (10:30)
[2022-09-13] MEDS: ASPIRIN 81 MG CHEWABLE TABLETS PO SCH (10:30)
[2022-09-13] MEDS: levETIRAcetam 500 MG TABLET (FP) PO SCH ×2 (10:30→22:09)
[2022-09-13 17:16] VITALS: RESP 18
[2022-09-13] MEDS: ATORVASTATIN CA 80 MG TABLET (FP) PO SCH (22:09)
[2022-09-13] MEDS: SENNOSIDES 8.8 MG/5 ML SYRUP PO SCH (22:10)
[2022-09-13] MEDS: LATANOPROST 0.005% OPHTH SOLN 2.5ML BOTTLE OU SCH (22:10)
[2022-09-14] MEDS: metFORMIN HCL 500 MG TABLET (FP) PO SCH (06:40)
[2022-09-14] MEDS: GEMFIBROZIL 600 MG TABLET (FP) PO SCH (06:40)
[2022-09-14 09:03] VITALS: BP 124/60; PULSE 53; TEMP 98.5
[2022-09-14] MEDS: POLYETHYLENE GLYCOL (HEALTHYLAX) 3350 17 GM PACKET PO SCH (09:48)
[2022-09-14] MEDS: amLODIPine BESYLATE 2.5 MG TABLET (FP) PO SCH (09:49)
[2022-09-14] MEDS: levETIRAcetam 500 MG TABLET (FP) PO SCH (09:49)
[2022-09-14] MEDS: HEPARIN NA (PORCINE) 5,000 UNITS/ML 1ML VIAL SQ SCH (09:49)
[2022-09-14] MEDS: DEXAMETHASONE 4 MG TABLET (FP) PO SCH (09:49)
[2022-09-14] MEDS: ASPIRIN 81 MG CHEWABLE TABLETS PO SCH (09:49)
[2022-09-14] MEDS: METOPROLOL TARTRATE 25 MG TABLET (FP) PO SCH (09:49)
== END 2022-09-14 12:41 | DRG 177 ==
LOC: JER 00:21 → JERBED 00:52 → J5S 09-04 20:16
PROVIDERS: ADMIT Internal Medicine; ATTEND Internal Medicine
PROC: XW033E5 Introduction of Remdesivir Anti-infective into Peripheral Vein, Percutaneous Approach, New Technology Group 5 (ICD-10-PCS; principal; 2022-09-01)
DX: U07.1 COVID-19 (principal); J12.82 Pneumonia due to coronavirus disease 2019; J96.01 Acute respiratory failure with hypoxia; R53.2 Functional quadriplegia; J44.1 Chronic obstructive pulmonary disease with (acute) exacerbation; N39.0 Urinary tract infection, site not specified; E87.0 Hyperosmolality and hypernatremia; E87.20 Acidosis, unspecified; F31.9 Bipolar disorder, unspecified; G30.9 Alzheimer's disease, unspecified; F02.80 Dementia in other diseases classified elsewhere, unspecified severity, without behavioral disturbance, psychotic disturbance, mood disturbance, and anxiety; I11.0 Hypertensive heart disease with heart failure; I50.9 Heart failure, unspecified; Z85.038 Personal history of other malignant neoplasm of large intestine
CPT/HCPCS: 0241U-QW; 36415; 71045-TC-FY; 80048; 80053; 81003; 82550; 82553; 82728; 82803; 82962; 83605; 83615; 83735; 83880; 84484; 85025; 85027; 85379; 85610; 85730; 86140; 86850; 86900; 86901; 87040; 87077; 87086; 93005; 93010; 93970-TC; 99285-25; C9399; C9803-CS; J1644; U0003; U0005